=== PATIENT | female | born 1965 | race Caucasian/White ===

== ENCOUNTER 2020-09-02 16:55 | Outpatient (REF) | payer OTHER, SELFPAY | END 2020-09-02 16:56 | disposition home or self-care (01) | LOC: HO.LAB 16:55 | PROVIDERS: Visit Provider Internal Medicine | DX: Z20.828 Contact with and (suspected) exposure to other viral communicable diseases (principal) | CPT/HCPCS: 87635 ==

== ENCOUNTER 2022-05-14 18:04 | Emergency (ER) | payer OTHER, SELFPAY ==
--- NOTE | ~2022-05-14 | XR_ITS ---
EXAMINATION: XR FINGER, RIGHT CLINICAL INFORMATION: Question foreign body second digit COMPARISON: None TECHNIQUE: Three views of the right second. FINDINGS: A sliver-like foreign body is seen in the soft tissues adjacent to the proximal aspect of the distal phalanx of the second digit toward the ulnar aspect. This measures proximally 3 mm. There is no evidence for a bony fracture. XR/XR finger RT min 2V IMPRESSION: Positive for small foreign body as described
[2022-05-14 18:20] VITALS: BP 128/61; PULSE 68; RESP 19; TEMP 36.6; O2SAT 98; BMI 25.0
--- NOTE | 2022-05-14 18:36 | ED.GENADULT ---
HPI - General Adult General Chief complaint: Wound/Laceration Stated complaint: glass in finger Time Seen by Provider: 05/14/22 18:19 Source: patient Mode of arrival: ambulatory Limitations: no limitations History of Present Illness HPI narrative: 56-year-old female presents with glass that has been retained in her finger. Stated that she cut her finger on a piece of glass on mother's Day, the wound healed however over the past few days she noted that there is increased pain and swelling and feels that there could possibly be a piece of glass retained. She does not report any fevers or chills, and does have the ability to flex and extend the finger without difficulty. Onset (ago): week(s) Location: left and upper extremity Radiation: non-radiation Severity: moderate Severity scale (1-10): 5 Quality: burning and aching Pain Consistency: constant Relieving factors: none Exacerbating factors: movement Associated symptoms: denies other symptoms Treatments prior to arrival: none Related Data Previous Rx's Medication Instructions Recorded amoxicillin 875 mg-potassium 1 tab PO Q12H 10 days #20 tabs 05/14/22 clavulanate 125 mg tablet Allergies Allergy/AdvReac Type Severity Reaction Status Date / Time Sulfa (Sulfonamide Allergy Severe Unknown Verified 05/14/22 19:40 Antibiotics) Review of Systems Review of Systems: Constitutional: No Fever, No Chills ENT/Mouth: No Ear Pain, No Hoarseness, No sore throat Eyes: No Eye Pain, No Swelling, No Redness, No Foreign Body Cardiovascular: No Chest Pain, No SOB Respiratory: No Cough, No Dyspnea Gastrointestinal: No Nausea, No Vomiting, No Diarrhea, No abdominal Pain Genitourinary: No Dysuria, No Hematuria Musculoskeletal: positive right index finger pain, No Myalgias, No Joint Swelling Skin: No Skin lacerations, No rash Neuro: No Weakness, No Numbness, No Paresthesias, No Loss of Consciousness, No Dizziness, No Headache Psych: No Anxiety/Panic, No Depression Heme/Lymph: no easy bruising, no Lymphadenopathy Endocrine: No Polyuria, No Polydipsia Yes all other systems are reviewed and are negative [facility], [facility] Past Medical History Attestation statement: The following information was validated with the patient. Source: old records reviewed Social History Social History Advance Directives: No Physical Exam ED Vital Signs: Vital Signs - 24 hr 05/14/22 18:20 Temperature 98 F Pulse Rate 68 Respiratory Rate 19 Blood Pressure 128/61 Pulse Oximetry 98 Oxygen Delivery Method Room Air BMI result Body Mass Index 25.0 Appearance: Alert. Oriented X3. No acute distress. Eyes: Pupils equal, round and reactive to light. ENT: Pharynx normal. Neck: Normal inspection. Neck supple. CVS: Normal heart rate and rhythm. Pulses normal. Respiratory: No respiratory distress. Breath sounds normal. Abdomen: Soft and nontender. Skin: Skin warm and dry. Normal skin color. Normal skin turgor. Extremities: enlarged right distal phalynx, full range of motion, no erythema or indication of infection. Neuro: No motor deficit. No sensory deficit. Cranial nerves 2-12 intact. Course Course Course Narrative: 56-year-old female presents with suspected foreign body to the right index distal phalanx. She did cut herself on a piece of glass on mother's Day, cleaned out the wound, and wound healed over. She noted increased swelling and pain and now has a bit of redness to the ulnar side of the distal phalanx on the index finger. X-rays indicate a sliver of a foreign body however I do not feel comfortable attempting to remove this foreign body. I will refer to hand surgery, and prescribed antibiotics Augmentin 875 mg twice a day for the next 10 days. She does have a prior hand surgeon, Dr. Rox Giron, I will also give her the number to Dr. Pate. She does understand that she must follow-up with the surgeon. Patient verbalized understanding of and agrees to plan of care to discharge home. Verbalized understanding of signs and symptoms indicating need for emergent intervention Medical Decision Making Differential Diagnosis Differential Diagnosis: Retained foreign body, cellulitis, abscess Imaging Data Finger x-ray: Attestation: I personally reviewed and interpreted this imaging study as follows: Radiologist's impression: EXAMINATION: XR FINGER, RIGHT CLINICAL INFORMATION: Question foreign body second digit? COMPARISON: None? TECHNIQUE: Three views of the right second. FINDINGS: A sliver-like foreign body is seen in the soft tissues adjacent to the proximal aspect of the distal phalanx of the second digit toward the ulnar aspect. This measures proximally 3 mm. There is no evidence for a bony fracture. ? XR/XR finger RT min 2V IMPRESSION: Positive for small foreign body as described Discharge Plan Discharge Clinical Impression: Retained foreign body, Finger pain, right Patient Disposition: Home, Self-Care Instructions: Swollen Joint (ED) Additional Instructions: You were evaluated for pain and swelling to the right distal phalanx on the index finger. X-rays indicate a retained foreign body. You must follow-up with your hand surgeon for evaluation. You may follow-up with Dr. Giron, your prior surgeon, or follow-up with Dr. Pate. I provided both numbers for you Your Tdap vaccine is up-to-date. You verbalize receiving that vaccine in 2020. Please take Augmentin 875 mg twice a day for the next 10 days Thank you for choosing this emergency department for evaluation. Please follow-up with primary care physician as needed. Return to the emergency department for any new, concerning, or worsening symptoms. Prescriptions: New amoxicillin-pot clavulanate 875-125 mg tablet 1 tab PO Q12H 10 Days Qty: 20 0RF Referrals: Kadie Pate MD [Physician] - (Retained foreign body right index finger) Rox Giron [Physician] - (Retained foreign body, index finger) Interventions: ED Discharge Assessment Last Done: 05/14/22 20:04 Discharge Date/Time: 05/14/22 20:07
[2022-05-14] MEDS: Amoxicillin/Potassium Clav 875 MG TABLET PO (19:55)
== END 2022-05-14 20:07 | disposition home or self-care (01) ==
PROVIDERS: Emergency Provider Emergency Medicine; PCP Internal Medicine
DX: S61.210A Laceration without foreign body of right index finger without damage to nail, initial encounter (principal); W25.XXXA Contact with sharp glass, initial encounter; W45.8XXA Other foreign body or object entering through skin, initial encounter; Y93.9 Activity, unspecified; Y92.009 Unspecified place in unspecified non-institutional (private) residence as the place of occurrence of the external cause; Y99.9 Unspecified external cause status; Z79.899 Other long term (current) drug therapy
CPT/HCPCS: 73140; 99282; 99283

== ENCOUNTER → 2022-05-19 10:06 | Outpatient (BNVA) | payer OTHER, SELFPAY | PROVIDERS: PCP Internal Medicine; Visit Provider Orthopaedic Surgery | DX: S61.220A Laceration with foreign body of right index finger without damage to nail, initial encounter (principal) | CPT/HCPCS: 99202; J0171 ==

== ENCOUNTER 2022-05-20 10:42 | Day surgery (SDC) | payer OTHER, SELFPAY ==
[2022-05-20 10:58] VITALS: BP 110/59; PULSE 63; RESP 18; TEMP 36.7; O2SAT 97; BMI 24.5
[2022-05-20 11:07] VITALS: BP 110/59; PULSE 63; RESP 18; TEMP 36.3; O2SAT 97
--- NOTE | 2022-05-20 12:44 | MHC.SHP ---
Pre-Procedural Eval Section A Date of Service: 05/20/22 The patient is an INPATIENT: No Changes since office visit: No Cold of Flu in the past 2 weeks, No New Medical Problems, No Changes in Medication and No Patient answered all questions The History & Physical has been completed within 30 days and I have reviewed it.: Yes Section B Chief Complaint: FB Right index foreign body Allergies: Allergies Allergy/AdvReac Type Severity Reaction Status Date / Time Sulfa (Sulfonamide Allergy Severe Anaphylaxis Verified 05/20/22 11:03 Antibiotics) Plan I have reviewed the history and physical and performed a pertinent physical examination on my patient. No changes have occurred unless specified.
--- NOTE | 2022-05-20 12:45 | P.OP_ITS ---
Operative Note Operative Note Date of Service: 05/20/22 Narrative: Operative Note Preop diagnosis: 1. right index finger foreign body Postop diagnosis: same Procedure: 1. right index finger foreign body Surgeon: Kadie Pate MD Anesthesia: digital block using 1% lidocaine with epinephrine Findings: a very small sliver of clear glass that measured perhaps 4 mm meters in length by 1-2 mm x 2 mm was removed from her index finger EBL: Less than 5 mL Tourniquet time: None Specimens: none Complications: None Disposition: Brought to recovery room in stable condition Plan: Follow-up for 7-10 days for wound check and suture removal and to check patho logy Indications: The patient is 56 years old, with small piece of glass from a broken vase in her right index finger . The risks and benefits of operative treatment including but not limited to risk of damage to blood vessels, nerves, tendons, infection, persistent pain, persistent symptoms, recurrence or possible need for additional surgery were discussed with the patient and the patient wishes to proceed with surgery. Procedure: Once consent was obtained a digital block was performed in the preop area using a combination of 1% lidocaine with epinephrine. The patient was then brought back to the operating suite and placed on the operative table in supine position. A tourniquet was applied to the proximal aspect of the right upper extremity and the limb was prepped and draped in a standard surgical fashion. Once assured that we had a good block, hamate 01.5 cm longitudinal incision centered over the suspected foreign body in the ulnar aspect of the right index finger at the distal phalanx level. Incision was made through the skin to the subcutaneous tissues using a 15. Blade. I then carefully dissected down into the soft tissues using tenotomy scissors. I then carefully evaluated the area and mobilized the tissues until I found the very small clear shard of glass. We removed the glass from her finger. The wound was irrigated with normal saline. Hemostasis was obtained with a brief period of local pressure. The skin edges were reapproximated with some 5.0 nylon suture material and a sterile dressing was applied. The patient appears to have tolerated the procedure well and with no complications. All digits were well vascularized at the conclusion of the case.
[2022-05-20 12:49] VITALS: BP 109/62; PULSE 60; RESP 18; TEMP 37.3; O2SAT 98
== END 2022-05-20 12:52 | disposition home or self-care (01) ==
PROVIDERS: PCP Internal Medicine; Visit Provider Orthopaedic Surgery
PROC: (CPT 10121; principal; 2022-05-20 15:30)
DX: M60.28 Foreign body granuloma of soft tissue, not elsewhere classified, other site (principal); Z18.81 Retained glass fragments; L30.9 Dermatitis, unspecified; M79.7 Fibromyalgia; Z88.2 Allergy status to sulfonamides
CPT/HCPCS: 10121; J0171

== ENCOUNTER → 2022-09-22 14:34 | Outpatient (BNVA) | payer OTHER, SELFPAY | PROVIDERS: PCP Internal Medicine; Visit Provider Orthopaedic Surgery | DX: Z48.817 Encounter for surgical aftercare following surgery on the skin and subcutaneous tissue (principal); S61.220D Laceration with foreign body of right index finger without damage to nail, subsequent encounter; R20.0 Anesthesia of skin | CPT/HCPCS: 99212 ==

== ENCOUNTER 2022-12-11 09:32 | Outpatient (REF) | payer OTHER, SELFPAY ==
--- NOTE | ~2022-12-11 | XR_ITS ---
EXAMINATION: XR LUMBOSACRAL SPINE CLINICAL INFORMATION: Low back pain. Numbness down leg. COMPARISON: None TECHNIQUE: Three views of the lumbosacral spine. FINDINGS: There is normal lumbar segmentation with 5 nonrib-bearing lumbar vertebrae with gentle dextrocurvature. There is normal lumbar lordosis. No lumbar vertebral compression, spondylolisthesis, disc narrowing, or erosive changes. There are degenerative facet changes L4-S1. The SI joints and visualized sacrum are unremarkable. XR/XR lumbar spine 2-3V IMPRESSION: 1. Facet degeneration L4-S1. 2. No vertebral compression, spondylolisthesis, or disc narrowing.
== END 2022-12-11 09:33 | disposition home or self-care (01) ==
LOC: HO.XRAY 09:32
PROVIDERS: PCP Internal Medicine; Visit Provider Chiropractor
DX: M99.03 Segmental and somatic dysfunction of lumbar region (principal)
CPT/HCPCS: 72100

== ENCOUNTER 2023-09-01 09:46 | Emergency (ER) | payer OTHER, SELFPAY ==
--- NOTE | ~2023-09-01 | CT_ITS ---
EXAMINATION: CT HEAD WITHOUT CONTRAST CLINICAL INFORMATION: Headache. Left facial numbness. COMPARISON: None available. TECHNIQUE: Contiguous axial imaging was performed from the skull base to vertex without intravenous administration of contrast. This CT examination was performed using dose optimization techniques as appropriate, variously including the following: *Automated exposure control *Adjustment of mA and/or kV according to patient size (this includes techniques or standardized protocols for targeted exams where dose is matched to indication/reason for exam; i.e. extremities or head) *Use of iterative reconstruction technique DLP: 607 mGy-cm FINDINGS: There is no evidence of acute intracranial hemorrhage or territorial infarction. No mass effect or midline shift is seen. [place] to white matter differentiation is well preserved. No extra-axial fluid collections are identified. No hydrocephalus. The calvarium is intact. The mastoid air cells and visualized portions of the paranasal sinuses are well aerated. CT/CT head/brain wo IV con IMPRESSION: No acute intracranial pathology.
--- NOTE | ~2023-09-01 | CT_ITS ---
EXAMINATION: CT ANGIOGRAM HEAD CT ANGIOGRAM NECK CLINICAL INFORMATION: Reason for Exam L sided facial numbness COMPARISON: None. TECHNIQUE: Test bolus sequences followed by intravenous administration 70 mL of Omnipaque 350. Helical imaging was performed in the axial plane from the aortic arch to the skull vertex. Delayed postcontrast imaging of the head was also performed. The data was processed at the mechanical engineering technologist's workstation for generation of MIP sequences. Angled MIPs and volume rendered reformatted images were also generated at an offline 3D workstation. Stenoses are assessed in accordance with Sherwood et al. Quantification of Carotid Stenosis on CT Angiography. AJR 2006. 27(1):13-19. This CT examination was performed using dose optimization techniques as appropriate, variously including the following: *Automated exposure control *Adjustment of mA and/or kV according to patient size (this includes techniques or standardized protocols for targeted exams where dose is matched to indication/reason for exam; i.e. extremities or head) *Use of iterative reconstruction technique DLP: 1396 mGy-cm FINDINGS: CT HEAD: Noncontrast head CT findings discussed separately. No pathologic intra-axial enhancement or regional oligemia. CTA HEAD: Venous contamination compromises diagnostic assessment. No proximal hemodynamically significant stenosis or occlusion in the anterior or posterior circulation. Trace calcific plaque along the bilateral cavernous segments without associated stenosis. Dominant left A1 segment and hypoplastic right A1 segment accounting for smaller caliber intracranial right ICA. Type I-Il left AICA loop courses within the left IAC. No aneurysms and no high flow vascular malformations. Timing of the contrast bolus allows assessment of the major dural venous sinuses, which all opacify normally CTA NECK: Classic 3 vessel branching pattern of the aortic arch. Origins of the great vessels are widely patent. The common carotid arteries are widely patent. The carotid bifurcations and bilateral internal carotid arteries are normal. The right vertebral artery is dominant. The vertebral artery ostia are widely patent. Both vertebral arteries are widely patent throughout their extracranial cervical course, noting partially nondiagnostic assessment of the left C1 vertebral artery. CT NECK: Small retention cyst in the left sphenoid and right maxillary sinuses. 9 mm hyperdense exophytic soft tissue along the left posterior wall of the nasal cavity, presumed nasal polyp/retention cyst. Symmetric prominence of the palatine tonsils for age, presumably reactive. Several hypodense thyroid nodules largest measuring 6 cm on the right below size criteria for imaging follow-up. Mosaic attenuation of the imaged lungs may reflect areas of air trapping. Mild C5-C6 disc height loss with disc osteophyte complex and uncovertebral joint hypertrophy contributing to severe left and [id number] right neural foraminal stenosis and apparent mild spinal canal stenosis. Additional milder cervical spondylosis. Elongated and ossified styloid processes can be correlated clinically for signs of Cant[place] syndrome. CT/CT angio head neck IMPRESSION: 1. No acute arterial occlusion or hemodynamically significant stenosis within the head or neck. Findings were communicated to Dr. Davis at 7:24 PM on 09/01/2023. 2. Type I-Il left AICA loop courses within the left IAC. 3. 9 mm hyperdense exophytic soft tissue along the left posterior wall of the nasal cavity, presumed nasal polyp/retention cyst. 4. Elongated and ossified styloid processes can be correlated clinically for signs of [place] syndrome.
[2023-09-01 09:53] VITALS: BP 146/80; PULSE 61; RESP 19; TEMP 36.6; O2SAT 99; BMI 24.9
--- NOTE | 2023-09-01 16:10 | ED_ITS ---
HPI - General Adult General Chief complaint: General Medical Stated complaint: possible stroke Time Seen by Provider: 09/01/23 16:01 Source: patient Mode of arrival: ambulatory Limitations: no limitations History of Present Illness HPI narrative: 58 yo female with PMH of fibromyalgia here with c/o neck pain, stress she is losing her hair recently that has been stressful, headaches and numbness along L lower mouth with some spasms. She notes no prior stroke no trauma, no neck manipulation or cracking by her chiropractor. She denies numbness, weakness anywhere else. She feels she cannot use her mouth as well as the other side. The symptoms started two days ago and made it feel like the L side of her face had hair on it. She denies dental work recently or sinus infection. MD complaint: parasthesias Onset (ago): day(s) (2) Location: face Radiation: non-radiation Severity: mild Quality: other Relieving factors: none Exacerbating factors: none Associated symptoms: headaches Treatments prior to arrival: none Related Data Home Medications Medication Instructions Recorded Confirmed No Known Home Meds 09/22/22 09/22/22 Allergies Allergy/AdvReac Type Severity Reaction Status Date / Time Sulfa (Sulfonamide Allergy Severe Anaphylaxis Verified 09/01/23 09:53 Antibiotics) Review of Systems 2 Review of Systems: Constitutional : No Fever, No Chills, No Fatigue ENT/Mouth : No sore throat, No Rhinorrhea Eyes: No Eye Pain, No Swelling, No Redness Cardiovascular : No Chest Pain, No SOB, No Dyspnea on Exertion Respiratory : No Cough, No Sputum Gastrointestinal : No Nausea, No Vomiting, No Diarrhea, No abdominal Pain Genitourinary : No Dysuria, No Urinary Frequency, No Hematuria, Musculoskeletal : No joint pain, No Myalgias, No Joint Swelling, pos neck pain Skin : No Skin Lesions, No rash Neuro : No Weakness, pos Numbness, No Dizziness, positive Headache Psych : No Anxiety/Panic, No Depression All other systems reviewed and are negative [facility] Past Medical History Attestation statement: The following information was validated with the patient. 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 Oriented X3. No acute distress. Eyes: Pupils equal, round and reactive to light. ENT: Pharynx normal. Neck: Normal inspection. Neck supple. CVS: Normal heart rate and rhythm. Pulses normal. Respiratory: No respiratory distress. Breath sounds normal. Abdomen: Soft and non-tender. Skin: Skin warm and dry. Normal skin color. Normal skin turgor. Extremities: No lower extremity edema. No calf ttp Neuro: Oriented X 3. No motor deficit. No sensory deficit. no drift, CN2-12 intact NIH Stroke Scale Internal: Initial- Upon Arrival Level of Consciousness: Alert Level of Consciousness Questions: Answers both questions correctly Level of Consciousness Commands: Performs both tasks correctly Best Gaze: Normal Visual: No visual loss Facial Palsy: Normal Motor Arm (Right): No drift Motor Arm (Left): No drift Motor Leg (Right): No drift Motor Leg (Left): No drift Limb Ataxia: Absent Sensory: Normal Best Language: No aphasia Dysarthia: Normal Extinction and Inattention: No abnormality Score: 0 Medications Administered Discontinued Medications Generic Name Dose Route Start Last Admin Trade Name Freq PRN Reason Stop Dose Admin Iohexol 100 ml 09/01/23 18:47 09/01/23 18:48 Iohexol 350 Mg/Ml 100 Ml Infus..Btl IV 09/01/23 18:48 70 ml ONCE ONE Administration Medical Decision Making Medical Decision Making MDM Narrative: 58 yo female with PMH of fibromyalgia here with c/o parasthesias of L face and feeling she is having word finding difficulties she is intact on my exam - this started two days ago she does admit she has stress. At this time I am going to obtain labs for lyte abnormality, EKG for afib, CTA for any dissection given headaches and neck pain. She is NIH 0 on exam and no deficits noted. She has no rash to suggest zoster. If work up negative will refer to PCP and start on baby ASA - symptoms are constant this is not a TIA but on exam she has no deficits. Differential Diagnosis Differential Diagnoses: The differential diagnosis associated with the presentation includes parasthesias, stress, dissection, atypical stroke symptoms, no meningeal signs of fevers to suggest stroke Admission/Observation Consideration of admission/observation: Escalation of care including admission/observation considered given normal imaging of CTA at 48 hours can finish work up as outpatinet not in afib normal labs Lab Data MDM Lab Attestation statement: I reviewed the patient's lab results. 09/01/23 16:47 09/01/23 16:47 Labs: Lab Results 09/01/23 Range/Units 16:47 WBC 4.8 (4.8-10.8) X10*3/uL RBC 5.03 (4.20-5.50) X10*6/uL Hgb 14.6 (12.0-16.0) g/dl Hct 44.2 (37.0-47.0) % MCV 87.9 (80.0-98.0) fL MCH 29.0 (27.0-33.0) pg MCHC 33.0 (31.0-35.0) g/dl RDW 13.0 (11.0-16.0) % Plt Count 269 (160-400) X10*3/uL MPV 9.4 (9.4-12.3) fL Immature Gran % (Auto) 0.2 (0.0-0.4) % Neut % (Auto) 50.1 (45-73) % Lymph % (Auto) 39.8 (20-40) % [place] % (Auto) 8.2 (2-11) % Eos % (Auto) 1.3 (0-4) % Baso % (Auto) 0.4 (0-2) % Lymph # (Auto) 1.9 (1.2-4.9) X10*3/uL [place] # (Auto) 0.4 (0.1-1.2) X10*3/uL Eos # (Auto) 0.1 (0.0-0.4) X10*3/uL Baso # (Auto) 0.0 (0.0-0.2) X10*3/uL Abs Immat Gran (auto) 0.01 (0.00-0.03) X10*3/uL Absolute Neuts (auto) 2.4 (2.0-8.3) x10*3/uL Absolute Nucleated RBC 0.000 (0.0-0.012) X10*3/uL Nucleated RBC % (auto) 0.0 (0.0-0.2) /100WBC Sodium 142 (135-145) mmol/L Potassium 3.4 (3.3-5.1) mmol/L Chloride 104 (96-108) mmol/L Carbon Dioxide 25 (22-29) mmol/L Anion Gap 16 (12-20) BUN 10 (9-16) mg/dL Creatinine 0.71 (0.5-1.4) mg/dL Estim Creat Clear Calc 81.8 Estimated GFR > 60 Random Glucose 90 (60-115) mg/dL Calcium 10.2 (8.4-10.2) mg/dL Magnesium 2.1 (1.6-2.6) mg/dL Total Bilirubin 0.7 (0.0-1.0) mg/dL Direct Bilirubin 0.2 (0.0-0.5) mg/dL AST 16 (5-31) U/L ALT 16 (0-31) U/L Alkaline Phosphatase 85 (39-117) U/L Total Protein 7.5 (6.5-8.0) g/dL Albumin 4.6 (3.5-5.0) g/dL TSH 3rd Generation 0.99 (0.32-4.0) uIU/mL Independent Interpretation I performed an independent interpretation of an: EKG and CT Scan (no ICH) Interpretation: Rate: 51 Rhythm: sinus bradycardia [place]: left Normal P waves. Normal MAGEN. Normal QRS complex. ST T wave : normal no AIMEE qTC: normal no acute ischemia prior studies: no acute ischemia The study has been interpreted contemporaneously by me. . Radiology Impression Discussion of test interpretation with radiology: I discussed test interpretation with the radiologist and I have reviewed the radiologist's reading. Radiologist Impression: discussion with Radiologist - normal CTA of head and neck Independent Historian Clinical information obtained from an independent historian. History obtained from or confirmed by: Friend External Record Review External record reviewed: Inpatient record Prescription Management I considered prescription management with: Other Discharge Plan Discharge Clinical Impression: Facial paresthesia Patient Disposition: Home, Self-Care Instructions: Paresthesia (ED) Additional Instructions: your labs and CTA of the head and neck did not show blockage or acute stroke at this time no obvious cause for your findings. I would start a baby 81mg aspirin coated until you see your doctor if this continues and get outpatient MRI to be complete. return for worsening symptoms, loss of vision, weakness, or any other concerns. EKG was normal not in afib. CTA findings: 1. No acute arterial occlusion or hemodynamically significant stenosis within the head or neck. Findings were communicated to Dr. Davis at 7:24 PM on 09/01/2023. 2. 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 9 mm hyperdense exophytic soft tissue along the left posterior wall of the nasal cavity, presumed nasal polyp/retention cyst. 4. Elongated and ossified styloid processes can be correlated clinically for signs of [place] syndrome - incidental findings - ear pain neck pain head pain can follow up with your doctor Prescriptions: No Action No Known Home Meds Referrals: Dahiana Townsend MD [Primary Care Provider] - (call for appointment next week )
--- NOTE | 2023-09-01 16:17 | ECG_ITS ---
Test Reason : GENERAL MEDICAL Blood Pressure : / mmHG Vent. Rate : 051 BPM Atrial Rate : 051 BPM P-R Int : 146 ms QRS Dur : 094 ms QT Int : 448 ms P-R-T Axes : 033 -36 047 degrees QTc Int : 412 ms Sinus bradycardia Left anterior fascicular block RSR' or QR pattern in V1 suggests right ventricular conduction delay Abnormal ECG No previous ECGs available Referred By: Loraine Davis Electronically Signed By:GABRIELLA STOVER MD
[2023-09-01 16:36] VITALS: BP 142/72; PULSE 61; RESP 18; TEMP 36.7; O2SAT 100
[2023-09-01 16:52] LABS: MANUAL DIFF FLAG NO
[2023-09-01 16:54] LABS: Basophils Percent Auto 0.4 % (0-2); Eosinophils Absolute Auto 0.1 X10*3/uL (0.0-0.4); Eosinophils Percent Auto 1.3 % (0-4); Hematocrit 44.2 % (37.0-47.0); Hemoglobin 14.6 g/dl (12.0-16.0); Imm Gran Abs Auto 0.01 X10*3/uL (0.00-0.03); Imm Gran Pct Auto 0.2 % (0.0-0.4); Lymphocytes Absolute Auto 1.9 X10*3/uL (1.2-4.9); Lymphocytes Percent Auto 39.8 % (20-40); Mean Corpuscular Volume 87.9 fL (80.0-98.0); Mean Platelet Volume 9.4 fL (9.4-12.3); Monocytes Absolute Auto 0.4 X10*3/uL (0.1-1.2); Monocytes Percent Auto 8.2 % (2-11); Neutrophils Absolute Auto 2.4 x10*3/uL (2.0-8.3); Neutrophils Percent Auto 50.1 % (45-73); Platelet Count 269 X10*3/uL (160-400); Red Blood Count 5.03 X10*6/uL (4.20-5.50); White Blood Count 4.8 X10*3/uL (4.8-10.8)
[2023-09-01 17:20] LABS: Alanine Aminotransferase 16 U/L (0-31); Albumin Level 4.6 g/dL (3.5-5.0); Alkaline Phosphatase 85 U/L (39-117); Anion Gap 16 (12-20); Aspartate Amino Transferase 16 U/L (5-31); Bilirubin Direct 0.2 mg/dL (0.0-0.5); Bilirubin Total 0.7 mg/dL (0.0-1.0); Blood Urea Nitrogen 10 mg/dL (9-16); Calcium 10.2 mg/dL (8.4-10.2); Carbon Dioxide 25 mmol/L (22-29); Chloride 104 mmol/L (96-108); Creatinine Clr Calc Pharmacy 81.8; Estimated Glomerular Filt Rate > 60; Glucose Random 90 mg/dL (60-115); Magnesium 2.1 mg/dL (1.6-2.6); Potassium 3.4 mmol/L (3.3-5.1); Sodium 142 mmol/L (135-145); Total Protein 7.5 g/dL (6.5-8.0)
--- NOTE | 2023-09-01 17:26 | PC.NURSE ---
pt is alert and oriented, skin pwd, respirations even and unlabored, pt reports that for a couple of these weird sensations on the left sided of her face feels like hair is rubbing on the left sided of the face and sometimes feels like tingling and it spread some to the right sided, the tip of the nose, pt is reporting a headache feels like pressure/pain even laying it on a pillow sometimes makes it hurts, no facial droop, no visible hand drift, grasp strong and equal, moving all extremities, denies dizziness and no visual disturbances, ns on the monitor and vs stable
[2023-09-01 17:34] LABS: TSH reflex Free T4 (Prenatal) 0.99 uIU/mL (0.32-4.0)
[2023-09-01] MEDS: iohexoL 350 MG/ML 100 ML INFUS..BTL IV (18:48)
[2023-09-01 19:47] VITALS: BP 122/63; PULSE 54; RESP 19; TEMP 36.6; O2SAT 97
== END 2023-09-01 19:52 | disposition home or self-care (01) ==
PROVIDERS: Emergency Provider Emergency Medicine; PCP Internal Medicine
DX: R20.2 Paresthesia of skin (principal); M54.2 Cervicalgia
CPT/HCPCS: 36415; 70450; 70496; 70498; 80048; 80076; 83735; 85025; 93005; 99284; Q9967

== ENCOUNTER 2023-11-28 08:03 | Outpatient (AMB) | payer OTHER, SELFPAY ==
--- NOTE | 2023-11-28 08:06 | MHC.OFFVIS ---
Intake Vital Signs 11/28/23 08:12 Height 5 ft 6 in Weight 158 lb 4 oz BMI 25.5 BP 118/72 Blood Pressure Location Rt brachial Position Sitting Pulse 73 Pulse Source Pulse Oximeter Pulse Oximetry (%) 97 Oxygen Delivery Method Room Air Intake Visit Reasons: ENP-Trigeminal Neuralgia-Confirmed Intake Note: Pt presents to the office today for a new patient for Trigeminal Neuralgia. Allergies Sulfa (Sulfonamide Antibiotics) Allergy (Severe, Verified 11/28/23 08:06) Anaphylaxis Medication List - Last Reconciled 11/28/23 by Lauren Ravi MD ascorbic acid (vitamin C) 500 mg PO DAILY gabapentin mg PO omega [id number]-fish oil 300-1,000 mg (Fish Oil) 1 cap PO DAILY HPI HPI Comments History of Present Illness Details 58y/o right handed female comes for further evaluation and management of possible trigeminal neuralgia on the left. she says an episodic dull pain in heft lower face started about 15 years ago. she describes it as a dull ache, numbness, tingling, electric shock like pain radiating to the tip of the nose and chin on the left , sometimes has muscle spasm and can last hours. She had 1 episode every other month but since Aug 2023 the episodes have increased to almost everyday.sometimes when the pain is intense her voice changes and has swallowing issues. she was seen by ENT. In Aug 2023 she went to [facility] for left face numbness. 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 She also has neck pain - C spine severe left and moderate right neural foraminal stenosis and mild spinal canal stenosis at C5-6 level. she sees [facility] for her neck pain. 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, 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 Physical Exam Vital Signs: Last Vital Signs Pulse 73 11/28/23 08:12 BP 118/72 11/28/23 08:12 Pulse Ox 97 11/28/23 08:12 Oxygen Delivery Method Room Air 11/28/23 08:12 BMI result Body Mass Index 25.5 Const General: cooperative, healthy appearing, comfortable and no acute distress Nutritional Appearance: average body habitus Orientation/consciousness: patient oriented x3 Eyes Pupils: Equal, round and reactive pupils present Neck Neck: Yes no meningeal signs Neuro Other: left lower face - dysesthesias General: patient oriented x3, gait normal, tone normal, moves all extremities, no meningeal signs and no focal motor deficits Cranial nerves: Yes Equal, round and reactive pupils present, Yes Bilaterally intact EOM present, Yes Nystagmus not present, Yes Normal facial strength present, Yes Midline tongue present, Yes Symmetric palate elevation present and Yes Ability to bilaterally elevate shoulders present Cognition (Neuro): normal cognition Gait exam (Neuro): Normal gait present Motor exam (neuro): 5/5 motor strength present throughout and no tremor noted Deep tendon reflexes (DTR's): Right triceps reflex intensity grade: 2+, Left triceps reflex intensity grade: 2+, Rt Biceps (C5, C6): 2+, Left biceps reflex intensity grade: 2+, Right brachioradialis reflex intensity grade: 2+, Left brachioradialis reflex intensity grade: 2+, Right patellar reflex intensity grade: 1+ and Left patellar reflex intensity grade: 1+ Coordination: [id number] test normal Psych Appearance: grossly normal Assessment & Plan Assessment & Plan (1) Trigeminal neuralgia of left side of face: Comment: related to long styloid ? 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 Panel 4 Weeks G50.0 - Trigeminal neuralgia Medications: New carbamazepine ER (Tegretol XR) 200 mg PO BID 60 tabs 6RF Coding Level of Care Code New Pt Level 4 (04175) Diagnoses Trigeminal neuralgia of left side of face G50.0
[2023-11-28 08:12] VITALS: BP 118/72; PULSE 73; O2SAT 97; BMI 25.5
== END 2023-11-28 09:01 | disposition home or self-care (01) ==
PROVIDERS: PCP Internal Medicine; Visit Provider Psychiatry & Neurology Neurology
DX: G50.0 Trigeminal neuralgia (principal)
CPT/HCPCS: 99204

== ENCOUNTER → 2023-11-28 08:03 | Outpatient (BNVA) | payer OTHER, SELFPAY | PROVIDERS: PCP Internal Medicine; Visit Provider Psychiatry & Neurology Neurology | DX: G50.0 Trigeminal neuralgia (principal) | CPT/HCPCS: 99202 ==

== ENCOUNTER 2023-11-30 19:45 | Outpatient (REF) | payer OTHER, SELFPAY ==
--- NOTE | ~2023-11-30 | MR_ITS ---
EXAMINATION: MR CERVICAL SPINE WITHOUT CONTRAST CLINICAL INFORMATION: Evaluate for disc pathology and spinal stenosis. COMPARISON: None available. TECHNIQUE: Multiplanar, multisequential imaging of the cervical spine was performed without contrast. FINDINGS: VERTEBRAL BODIES AND PARASPINAL SOFT TISSUES: The marrow signal is within normal limits. There are no compression fractures. Mild posterior subluxations evident at the C4-C5 and C5-C6 levels. There is severe disc space narrowing at C5-C6 as well. Mild rightward curvature of the cervical spine evident. The paraspinal soft tissues are normal. The vertebral artery flow voids are maintained. The imaged lung apices are grossly clear. CERVICOMEDULLARY JUNCTION AND VISUALIZED POSTERIOR FOSSA: The craniovertebral junction appears normal. The imaged portions of the brain are unremarkable. The mastoid air cells are well aerated. No cord signal abnormality or syrinx is seen. SPINAL LEVELS: C2-C3: No disc pathology, central canal stenosis, or foraminal narrowing. C3-C4: Small central disc protrusion. No central canal stenosis or foraminal narrowing. C4-C5: Mild loss of disc height and retrosubluxation with a shallow central disc protrusion. No central canal stenosis. Mild right foraminal narrowing. C5-C6: Severe loss of disc height and shallow disc-osteophyte complex with mild central canal stenosis. Bilateral facet arthropathy and severe left foraminal narrowing. Moderate right foraminal narrowing as well. C6-C7: Very mild disc bulge and posterior ligamentous thickening without central canal stenosis. Mild left foraminal narrowing. C7-T1: No disc abnormality. No central canal stenosis or foraminal narrowing. Mild facet arthropathy. MR/MR cervical spine wo con IMPRESSION: 1. Severe degenerative disc disease at the C5-C6 level with mild central canal stenosis and abfexstr-iw-nvihvd foraminal narrowing, worse on the left side. 2. Small disc protrusions at the C3-C4 and C4-C5 levels. Mild rightward curvature of the cervical spine.
== END 2023-11-30 19:46 | disposition home or self-care (01) ==
LOC: HO.MRI 19:45
PROVIDERS: PCP Internal Medicine; Visit Provider Physician Assistant
DX: M42.12 Adult osteochondrosis of spine, cervical region (principal)
CPT/HCPCS: 72141

== ENCOUNTER 2023-12-26 08:42 | Outpatient (REF) | payer OTHER, SELFPAY ==
[2023-12-26 09:03] LABS: MANUAL DIFF FLAG NO
[2023-12-26 09:19] LABS: Basophils Percent Auto 0.6 % (0-2); Eosinophils Absolute Auto 0.1 X10*3/uL (0.0-0.4); Eosinophils Percent Auto 1.9 % (0-4); Hematocrit 41.6 % (37.0-47.0); Hemoglobin 13.5 g/dl (12.0-16.0); Imm Gran Abs Auto 0.01 X10*3/uL (0.00-0.03); Imm Gran Pct Auto 0.2 % (0.0-0.4); Lymphocytes Absolute Auto 1.4 X10*3/uL (1.2-4.9); Lymphocytes Percent Auto 29.1 % (20-40); Mean Corpuscular HGB Conc 32.5 g/dl (31.0-35.0); Mean Corpuscular Hemoglobin 28.5 pg (27.0-33.0); Mean Corpuscular Volume 87.9 fL (80.0-98.0); Mean Platelet Volume 9.4 fL (9.4-12.3); Monocytes Absolute Auto 0.4 X10*3/uL (0.1-1.2); Monocytes Percent Auto 8.3 % (2-11); Neutrophils Absolute Auto 2.9 x10*3/uL (2.0-8.3); Neutrophils Percent Auto 59.9 % (45-73); Platelet Count 276 X10*3/uL (160-400); Red Blood Count 4.73 X10*6/uL (4.20-5.50); Red Cell Distribution Width 12.6 % (11.0-16.0); White Blood Count 4.8 X10*3/uL (4.8-10.8)
[2023-12-26 09:42] LABS: Alanine Aminotransferase 14 U/L (0-31); Alkaline Phosphatase 94 U/L (39-117); Anion Gap 13 (12-20); Aspartate Amino Transferase 14 U/L (5-31); Bilirubin Total 0.2 mg/dL (0.0-1.0); Blood Urea Nitrogen 14 mg/dL (9-16); Calcium 9.1 mg/dL (8.4-10.2); Carbon Dioxide 27 mmol/L (22-29); Chloride 107 mmol/L (96-108); Estimated Glomerular Filt Rate > 60; Glucose Random 100 mg/dL (60-115); Potassium 4.1 mmol/L (3.3-5.1); Sodium 143 mmol/L (135-145); Total Protein 6.7 g/dL (6.5-8.0)
== END 2023-12-26 08:43 | disposition home or self-care (01) ==
LOC: HO.LAB 08:42
PROVIDERS: PCP Internal Medicine; Visit Provider Psychiatry & Neurology Neurology
DX: G50.0 Trigeminal neuralgia (principal)
CPT/HCPCS: 36415; 80053; 85025

== ENCOUNTER 2024-03-27 16:38 | Outpatient (REF) | payer OTHER, SELFPAY ==
--- NOTE | ~2024-03-27 | MR_ITS ---
EXAMINATION: MR BRAIN WITHOUT AND WITH CONTRAST CLINICAL INFORMATION: Left facial numbness COMPARISON: CT head without contrast 09/01/2023 TECHNIQUE: Multiplanar multisequence MR imaging of the brain was obtained without and following the administration of 7 mL Gadavist intravenous contrast. FINDINGS: There is no acute infarct on diffusion-weighted imaging. There is no intracranial hemorrhage on iron-sensitive imaging. No extra-axial collection or mass effect/herniation. There are several scattered foci of nonspecific supratentorial white matter T2/FLAIR signal abnormality, most likely reflecting sequela of chronic microvascular ischemia.. No hydrocephalus. The ventricles are normal in morphology and size. No abnormal parenchymal or extra-axial enhancement. The major flow voids at the skull base are preserved. The midline structures are normal. The cerebellar tonsils are normally positioned. The craniocervical junction is normal. Marrow signal is within normal limits. The visualized soft tissues are without significant abnormality. Small retention cysts in the lateral left sphenoid sinus. Small posterior left nasal cavity polyp. MR/MR head/brain wo/w con IMPRESSION: 1. No acute intracranial abnormality 2. Few scattered foci of T2/FLAIR hyperintense signal in the supratentorial white matter which are nonspecific but most likely reflect sequela of chronic microvascular ischemia
[2024-03-27] MEDS: gadobutroL 7.5 ML VIAL IVPUSH (17:49)
== END 2024-03-27 16:39 | disposition home or self-care (01) ==
LOC: HO.MRI 16:38
PROVIDERS: PCP Internal Medicine; Visit Provider Neurological Surgery
DX: R51.9 Headache, unspecified (principal)
CPT/HCPCS: 70553; A9585

== ENCOUNTER 2024-04-03 07:34 | Outpatient (AMB) | payer OTHER, SELFPAY ==
--- NOTE | 2024-04-03 07:35 | MHC.OFFVIS ---
Vital Signs 04/03/24 07:36 Height 5 ft 6 in Weight 158 lb BMI 25.5 BP 122/76 Blood Pressure Location Rt brachial Position Sitting Respiration 16 Pulse 67 Pulse Source Pulse Oximeter Pulse Oximetry (%) 100 Oxygen Delivery Method Room Air Intake Visit Reasons: 2M follow up-CONF Intake Note: Pt presents for a 4 month follow up for trigeminal neuralgia of the face. [employer] Required: No Allergies Sulfa (Sulfonamide Antibiotics) Allergy (Severe, Verified 04/03/24 07:36) Anaphylaxis Medication List - Last Reconciled 04/03/24 by Lauren Ravi MD ascorbic acid (vitamin C) 500 mg PO DAILY carbamazepine ER (Tegretol XR) 200 mg PO BID gabapentin mg PO omega 6-dve-lxn-fish oil 300-1,000 mg (Fish Oil) 1 cap PO DAILY HPI Comments Details: 58y/o right handed female comes for follow up of possible trigeminal neuralgia on the left. she is better with carbamazepine XR 200mg bid Her CBC and CMP are normal. MRI brain - awaiting results she sees [facility] for C spondylosis and ENT for Eagles syndrome. she reports sensitivty in the parietal region and thinks triggered by touch and light . she says an episodic dull pain in left lower face started about 15 years ago. she describes it as a dull ache, numbness, tingling, electric shock like pain radiating to the tip of the nose and chin on the left , sometimes has muscle spasm and can last hours. She had 1 episode every other month but since Aug 2023 the episodes have increased to almost everyday.sometimes when the pain is intense her voice changes and has swallowing issues. she was seen by ENT. In Aug 2023 she went to [facility] for left face numbness. 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 She also has neck pain - C spine severe left and moderate right neural foraminal stenosis and mild spinal canal stenosis at C5-6 level. she sees [facility] for her neck pain. 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 Physical Exam Vital Signs: Last Vital Signs Pulse 67 04/03/24 07:36 Resp 16 04/03/24 07:36 BP 122/76 04/03/24 07:36 Pulse Ox 100 04/03/24 07:36 Oxygen Delivery Method Room Air 04/03/24 07:36 BMI result Body Mass Index 25.5 Const General: cooperative, healthy appearing, comfortable and no acute distress Nutritional Appearance: average body habitus Orientation/consciousness: patient oriented x3 Eyes Pupils: Equal, round and reactive pupils present Neck Neck: Yes no meningeal signs Neuro Other: left lower face - dysesthesias General: patient oriented x3, gait normal, tone normal, moves all extremities, no meningeal signs and no focal motor deficits Cranial nerves: Yes Equal, round and reactive pupils present, Yes Bilaterally intact EOM present, Yes Nystagmus not present, Yes Normal facial strength present, Yes Midline tongue present, Yes Symmetric palate elevation present and Yes Ability to bilaterally elevate shoulders present Cognition (Neuro): normal cognition Gait exam (Neuro): Normal gait present Motor exam (neuro): 5/5 motor strength present throughout and no tremor noted Coordination: [id number] test normal Psych Appearance: grossly normal Assessment & Plan Assessment & Plan (1) Trigeminal neuralgia of left side of face: Comment: related to long styloid ? Code(s): G50.0 - Trigeminal neuralgia Category: Medical (2) Cervical spondylosis: Code(s): M47.812 - Spondylosis without myelopathy or radiculopathy, cervical region Category: Medical Plan Continue Tegretol XR 200mg bid Magnesium qhs Vitamin B 2- riboflavin 400mg qam Suggested topical lidocaine for parietal sensitivity CBC and CMP PT for neck muscles F/U with ENT Orders: Orders PT Evaluation and Treatment Today M47.812 - Spondylosis without myelopathy or radiculopathy, cervical region Medications: Refilled carbamazepine ER (Tegretol XR) 200 mg PO BID 60 tabs 6RF Coding Level of Care Code Est Pt Level 4 (63645) Diagnoses Trigeminal neuralgia of left side of face G50.0 Cervical spondylosis M47.812
[2024-04-03 07:36] VITALS: BP 122/76; PULSE 67; RESP 16; O2SAT 100; BMI 25.5
== END 2024-04-03 08:11 | disposition home or self-care (01) ==
PROVIDERS: PCP Internal Medicine; Visit Provider Psychiatry & Neurology Neurology
DX: G50.0 Trigeminal neuralgia (principal); M47.812 Spondylosis without myelopathy or radiculopathy, cervical region
CPT/HCPCS: 99214

== ENCOUNTER → 2024-04-03 07:34 | Outpatient (BNVA) | payer OTHER, SELFPAY | PROVIDERS: PCP Internal Medicine; Visit Provider Psychiatry & Neurology Neurology | DX: G50.0 Trigeminal neuralgia (principal); M47.812 Spondylosis without myelopathy or radiculopathy, cervical region; Z79.899 Other long term (current) drug therapy | CPT/HCPCS: 99212 ==

== ENCOUNTER 2024-07-18 15:00 | Outpatient (RCR) | payer OTHER, SELFPAY ==
--- NOTE | 2024-04-30 18:10 | MHC.PT.EP ---
[facility] [place] [facility] [place] [facility] [place] [facility] [address] [phone] F: [phone] F: [phone] F: [phone] F: [phone] Physical Therapy Plan of Care Date of Evaluation: 04/30/24 Date of Surgery: Diagnosis: cervical spondylosis (MD Dx) Pt with Hx L trigemial neuralgia (RS) Assessment: Patient is a pleasant 58 y.o. female who is referred to PT by with Dx of cervical spondylosis. Pt with complex hx of L trigemial neuralgia, there are MRI findings, 1. Severe degenerative disc disease at the C5-C6 level with mild central canal stenosis and [id number] foraminal narrowing, worse on the left side. 2. Small disc protrusions at the C3-C4 and C4-C5 levels. Mild rightward curvature of the cervical spine. Patient impairments include pain, poor posture, referred pain to face and head, weakness in L shoulder and L scapular area, limited cervical ROM. Patient current functional limitations are constant pain, concentration, work, walking, picking up heavier objects, driving. Patient will benefit from skilled PT to address aforementioned impairments and functional limitations to meet established goals. Frequency and Duration: The patient will be seen 2x/week for 4 weeks Short Term Goals: 2 weeks Patient demonstrates consistency and independence with HEP to self manage symptoms. [facility] Goals: 4 weeks Patient presents with increased cervical rotation to L 60 degrees to look over shoulders when driving. Patient presents with increased L middle trap strength 4/5 to be able to sit for longer time at work with less referred sxs. Treatment Plan: Modalities to reduce pain, spasms and effusion. Manual therapy to restore motion and function. Therapeutic exercise to improve strength and flexibility. Neuromuscular re-education for posture and balance. Therapeutic activities to return to functional activities of daily living. Electronically signed by: Sage Zelaya, PT, DPT Please sign and return to therapist. Thank you for your referral.
--- NOTE | 2024-08-28 16:01 | MHC.PT.DC ---
[facility] [place] [facility] [place] [facility] [place] [facility] [address] [phone] F: [phone] F: [phone] F: [phone] F: [phone] Physical Therapy Discharge Report Diagnosis: cervical spondylosis (MD Nazario) Pt with Hx L trigemial neuralgia (RS) Date of Surgery: Date of Evaluation: 04/30/24 Date of Discharge: 08/28/24 Treatments to Date: 12 Cancellations to Date: No Shows to Date: Discharge Status: Improved Function Independent with HEP Patient Elected to Stop Discharge Summary: Rox did well with PT interventions. Her last PT session was on 07/17/24 and the assessment reads, Rox is able to maintain neck and shoulder neutral for exercises without pain complaints. She reports mild pain/pulling in anterior L pec area which is much improved per patient since starting PT. This may also come from referred pain from scalenes. She ceased attending PT on her own accord and is discharged from PT at this time. Electronically signed by: Sage Zelaya, PT, DPT Please sign and return to therapist. Thank you for your referral.
== END 2024-08-28 16:02 | disposition home or self-care (01) ==
LOC: HO.PT 15:00
PROVIDERS: PCP Internal Medicine; Visit Provider Psychiatry & Neurology Neurology
DX: M47.812 Spondylosis without myelopathy or radiculopathy, cervical region (principal)
CPT/HCPCS: 97110; 97140; 97163; 97530

== ENCOUNTER 2024-10-04 07:36 | Outpatient (AMB) | payer OTHER, SELFPAY ==
--- NOTE | 2024-10-04 07:38 | A.OFFVIS_ITS ---
Vital Signs 10/04/24 07:39 Height 5 ft 6 in Weight 159 lb BMI 25.7 Intake Visit Reasons: Follow up Intake Note: Patient presents for follow up. Allergies Sulfa (Sulfonamide Antibiotics) Allergy (Severe, Verified 10/04/24 07:40) Anaphylaxis HPI Comments Details: 59 year old female with h/o cervical- spondylosis and Trigeminal Neuralgia like symptoms presents for a follow up. She continues to have sensitivity and pain when brushing her hair and in the back of her head (parietal area), as the medication starts to wear off. She continues to have sensitivity to light and headaches daily as the medication wears off. She has been having a shaking like sensation of her left hand, as if she needs to shake the water off of her hands, when doing dishes, and notices this spontaneously through the day, and it lasts for seconds. She tried taking Tegretol 200mg XR 1 hour apart, 2 hours apart, 4 hours apart and this didn't work either, the 400 mg is too sedating and she can't get out of bed for work even at 9am, symptoms of (ataxia). Discussed dose adjustment to 300 mg, as 400 mg is over stimulating for her yet, and causes dizziness sedating for her. PT has helped in the past for her neck and head. Denies vision changes nausea and vomiting, vertigo and falls. She wears trifocals so vision is at baseline blurry, she sees her sales performance analyst regularly. 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 hand shakes and stops in seconds.) Physical Exam Vital Signs: BMI result Body Mass Index 25.7 Const General: cooperative, comfortable and no acute distress Orientation/consciousness: patient oriented x3 HEENT Head: Yes normal to inspection Mouth: tongue normal Eyes General: appearance normal, both eyes and all related structures Pupils: Equal, round and reactive pupils present, Pupils normal by confrontation and Pupil accommodation reflex normal Neck Neck: Yes full ROM (limited ROM to left.) and Yes supple Resp Effort & Inspection: normal respiratory effort and able to speak in complete sentences Neuro General: patient oriented x3 Cranial nerves: Yes CN's II-XII intact bilaterally, Yes Facial sensation intact/muscles of mastication intact, Yes Equal, round and reactive pupils present, Yes Normal accommodation reflex present, Yes Normal facial strength present, Yes Midline tongue present, Yes Symmetric palate elevation present, Yes Normal hearing present, Yes Ability to bilaterally rotate head present and Yes Ability to bilaterally elevate shoulders present Gait exam (Neuro): Normal gait present Motor exam (neuro): 5/5 motor strength present throughout (weakness on the left 3/5 upper ext.) Deep tendon reflexes (DTR's): Right triceps reflex intensity grade: 2+, Left triceps reflex intensity grade: 2+, Rt Biceps (C5, C6): 2+, Left biceps reflex intensity grade: 2+, Right brachioradialis reflex intensity grade: 2+, Left brachioradialis reflex intensity grade: 2+, Right patellar reflex intensity grade: 2+ and Left patellar reflex intensity grade: 1+ Coordination: iaggsv-po-fljy test normal Psych Appearance: grossly normal Affect: normal affect Attitude: cooperative Insight: Good insight present (Psych) Judgement: Good judgement present (Psych) Assessment & Plan Assessment & Plan (1) Cervical spondylosis: Code(s): M47.812 - Spondylosis without myelopathy or radiculopathy, cervical region Category: Medical (2) Trigeminal neuralgia of left side of face: Comment: related to long styloid ? Code(s): G50.0 - Trigeminal neuralgia Category: Medical Plan Will increase the level of carbamazapine, from 200 to 300mg PO ER BID. Will send labs to check CBC/CMP for levels of Tegretol. Follow up with portal message if you need dose adjusments. Follow up in 4 months. Orders: Orders Complete Blood Count no Diff 10/05/24 G50.0 - Trigeminal neuralgia Comprehensive Met. Panel 10/05/24 G50.0 - Trigeminal neuralgia Carbamazepine Tegretol 10/05/24 G50.0 - Trigeminal neuralgia Medications: New carbamazepine ER 100 mg PO BID 60 caps 6RF Discontinued amitriptyline Discontinued Reason: Doctor's Order 10 mg PO BEDTIME 30 tabs 0RF Coding Level of Care Code Est Pt Level 4 (95809) Complex EM visit Add On G2211 Diagnoses Cervical spondylosis M47.812 Trigeminal neuralgia of left side of face G50.0
[2024-10-04 07:39] VITALS: BMI 25.7
== END 2024-10-04 08:13 | disposition home or self-care (01) ==
PROVIDERS: PCP Internal Medicine; Visit Provider Psychiatry & Neurology Neurology
DX: M47.812 Spondylosis without myelopathy or radiculopathy, cervical region (principal); G50.0 Trigeminal neuralgia
CPT/HCPCS: 99214; G2211

== ENCOUNTER → 2024-10-04 07:36 | Outpatient (BNVA) | payer OTHER, SELFPAY | PROVIDERS: PCP Internal Medicine; Visit Provider Psychiatry & Neurology Neurology | DX: M47.812 Spondylosis without myelopathy or radiculopathy, cervical region (principal); G50.0 Trigeminal neuralgia | CPT/HCPCS: 99212 ==

== ENCOUNTER 2024-10-05 16:43 | Outpatient (REF) | payer OTHER, SELFPAY ==
[2024-10-05 17:23] LABS: Hematocrit 41.6 % (37.0-47.0); Hemoglobin 13.6 g/dl (12.0-16.0); Mean Corpuscular HGB Conc 32.7 g/dl (31.0-35.0); Mean Corpuscular Hemoglobin 29.3 pg (27.0-33.0); Mean Corpuscular Volume 89.7 fL (80.0-98.0); Mean Platelet Volume 9.5 fL (9.4-12.3); Platelet Count 288 X10*3/uL (160-400); Red Blood Count 4.64 X10*6/uL (4.20-5.50); Red Cell Distribution Width 13.5 % (11.0-16.0); White Blood Count 4.8 X10*3/uL (4.8-10.8)
[2024-10-05 17:31] LABS: Alanine Aminotransferase 30 U/L (0-31); Albumin Level 4.4 g/dL (3.5-5.0); Alkaline Phosphatase 119 U/L (39-117); Anion Gap 8 (12-20); Aspartate Amino Transferase 22 U/L (5-31); Bilirubin Total 0.2 mg/dL (0.0-1.0); Blood Urea Nitrogen 10 mg/dL (9-16); Calcium 9.4 mg/dL (8.4-10.2); Carbamazepine Tegretol 5.6 mcg/mL (5.0-12.0); Carbon Dioxide 30 mmol/L (22-29); Chloride 106 mmol/L (96-108); Estimated Glomerular Filt Rate > 60; Glucose Random 95 mg/dL (60-115); Potassium 3.9 mmol/L (3.3-5.1); Sodium 140 mmol/L (135-145)
== END 2024-10-05 16:44 | disposition home or self-care (01) ==
LOC: HO.LAB 16:43
PROVIDERS: PCP Internal Medicine; Visit Provider Physician Assistant Medical
DX: G50.0 Trigeminal neuralgia (principal)
CPT/HCPCS: 36415; 80053; 80156; 85027

== ENCOUNTER 2025-02-07 08:30 | Outpatient (AMB) | payer OTHER, SELFPAY ==
[2025-02-07 08:31] VITALS: BP 122/74; PULSE 75; O2SAT 98; BMI 25.5
--- NOTE | 2025-02-07 08:31 | A.OFFVIS_ITS ---
Vital Signs 02/07/25 08:31 Height 5 ft 6 in Weight 158 lb BMI 25.5 BP 122/74 Blood Pressure Location Rt brachial Position Sitting Pulse 75 Pulse Source Pulse Oximeter Pulse Oximetry (%) 98 Oxygen Delivery Method Room Air Intake Visit Reasons: Follow up Intake Note: Patient presents for follow up MRI done 08/30 and med trial carbamazepine. Allergies Sulfa (Sulfonamide Antibiotics) Allergy (Severe, Verified 02/07/25 08:33) Anaphylaxis HPI Comments Details: 59 year old female with h/o cervical- spondylosis and Trigeminal Neuralgia like symptoms presents for a follow up. she is doing good tegretol 200mg bid she reports some paresthesias in right dorsum hand. she tried 300mg bid but had tremors and did not provide additional benefit. PT has helped in the past for her neck and head. Denies vision changes nausea and vomiting, vertigo and falls. She wears trifocals so vision is at baseline blurry, she sees her hospital administrative assistant regularly. 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, 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 Review of Systems ENT Reports Normal hearing present Neuro Reports Normal hearing present Physical Exam Vital Signs: Last Vital Signs Pulse 75 02/07/25 08:31 BP 122/74 02/07/25 08:31 Pulse Ox 98 02/07/25 08:31 Oxygen Delivery Method Room Air 02/07/25 08:31 BMI result Body Mass Index 25.5 Const General: cooperative, comfortable and no acute distress Orientation/consciousness: patient oriented x3 HEENT Head: Yes normal to inspection Mouth: tongue normal Eyes General: appearance normal, both eyes and all related structures Pupils: Equal, round and reactive pupils present, Pupils normal by confrontation and Pupil accommodation reflex normal Neck Neck: Yes full ROM (limited ROM to left.) and Yes supple Resp Effort & Inspection: normal respiratory effort and able to speak in complete sentences Neuro General: patient oriented x3 Cranial nerves: Yes CN's II-XII intact bilaterally, Yes Facial sensation intact/muscles of mastication intact, Yes Equal, round and reactive pupils present, Yes Normal accommodation reflex present, Yes Normal facial strength present, Yes Midline tongue present, Yes Symmetric palate elevation present, Yes Normal hearing present, Yes Ability to bilaterally rotate head present and Yes Ability to bilaterally elevate shoulders present Gait exam (Neuro): Normal gait present Motor exam (neuro): 5/5 motor strength present throughout (weakness on the left 3/5 upper ext.) Coordination: [id number] test normal Psych Appearance: grossly normal Affect: normal affect Attitude: cooperative Insight: Good insight present (Psych) Judgement: Good judgement present (Psych) Assessment & Plan Assessment & Plan (1) Cervical spondylosis: Code(s): M47.812 - Spondylosis without myelopathy or radiculopathy, cervical region Category: Medical (2) Trigeminal neuralgia of left side of face: Comment: related to long styloid ? Code(s): G50.0 - Trigeminal neuralgia Category: Medical Plan continue carbamazapine, from 200ER bid CBC/CMP for levels of Tegretol- normal Follow up in 4 months. Coding Level of Care Code Est Pt Level 4 (66147) Complex EM visit Add On G2211 Diagnoses Cervical spondylosis M47.812 Trigeminal neuralgia of left side of face G50.0
--- OUTSIDE RECORDS SUMMARY | 2025-02-07 08:46 | XMS_ITS | Encounter Summary ---
Author Organization [facility] Address [address] [place] [address] Care Team Providers Care Automobile Mechanic Radiator Name Role Phone Dahiana Townsend MD Primary Care Provider [phone] Reason for Visit * Reason Comments Follow-up Left heel pain Encounter Details Date Type Department Care Team ([facility] st Contact Info) Description 01/15/2025 9:30 AM EST Office Visit Orthopedic Surgery - [facility] [address] [phone] Bon Trujillo, DPM [address] [address] Plantar fasciitis (Primary Dx); Equinus contracture of ankle; Ingrowing nail; Dermatophytosis of nail; Difficulty walking; Pain in toe of right foot Social History Tobacco Use Types Packs/Day Years Used Date Smoking Tobacco: Never Smokeless Tobacco: Never Alcohol Use Standard Drinks/Week Comments No 0 (1 standard drink = 0.6 oz pur e alcohol) Housing Instability Answer Date Recorde d Are you worried that in the next 2 months you may not have stable housing? No 10/07/2024 Food Access & Nutrition Answer Date Rec orded Do you have access to a vari ety of food including fruits and vegetables? Yes 10/07/2024 Access to Healthcare Answer Date Record ed Within the last 3 months, ho w many times did you visit the emergency department for your medical care? 0 10/07/2024 Health Literacy Answer Date Recorded How often do you need to hav e someone help you when you read instructions, pamphlets, or other written material from your doctor or pharmacy? Never 10/07/2024 Caregiver: How often do you need to have someone help you when you read instructions, pamphlets, or other written material from your doctor or pharmacy? Not on file 10/07/2024 Financial Risk Answer Date Recorded How hard is it for you to pa y for the very basics like food, housing, medical care, and air conditioning / heating? Not very hard 10/07/2024 Transportation Answer Date Recorded Has the lack of transportati on kept you from meetings, work, or from getting things needed for daily living? No Has the lack of transportati on kept you from medical appointments or from getting medications? No 10/07/2024 Social Isolation Answer Date Recorded How often do you feel lonely or isolated from th ose around you? Never 10/07/2024 Food Risk Answer Date Recorded Within the past 12 months we worried whether our food would run out before we got money to buy more. Never true 10/07/2024 Within the past 12 months th e food we bought just didn't last and we didn't have money to get more. Never true 10/07/2024 Dependent Care Answer Date Recorded Do you need help finding or paying for care for your loved ones. For example, child care giver or elderly care for an older adult? No 10/07/2024 Education Answer Date Recorded Do you think completing more education or training, like finishing a GED, going to college, or learning a trade, would be helpful for you? Yes 10/07/2024 Employment and Income Answer Date Recor ded During the last four weeks, have you been actively looking for work? Yes 10/07/2024 Living Situation Answer Date Recorded What is your living situation? 1 12/07/2023 Comments No Sex and Gender Information Value Date Recorded Sex Assigned at Female 10/07/2024 10:24 PM EST Legal Sex Female 4:58 AM EST Gender Identity Female 10/07/2024 10:24 PM EST Sexual Orientation Straight 10/07/2024 10 :24 PM EST documented as of this encounter Last Filed Vital Signs Vital Sign Reading Time Taken Comments Blood Pressure - - Pulse - - Temperature - - Respiratory Rate - - Oxygen Saturation - - Inhaled Oxygen Concentration - - Weight 70.3 kg (155 lb) 01/15/2025 9:36 AM EST Height 167.6 cm (5' 5.98 ) 01/15/2025 9:36 AM ES T Body Mass Index 25.03 01/15/2025 9:36 AM EST documented in this encounter Progress Notes * Bon Trujillo DPM - 01/15/2025 9:30 AM EST S Patient presents states that her left heel pain is still throbbing achy is a 4 5 out of 10 visual ask that she continues to use more supportive shoes which have helped she does note that she suffers from fibromyalgia as does get radiating pain occasion does note that her nails elongated painful thickened continue to grow into her skin she has severe nail deformities and she states she would like to consider nail procedure at some point pain discomfort in her nails a 7 out of 10 on a visual analog scale Last MD visit 10/12/2024 Dr Cary Talbot MD ROS: GENERAL: Pt denies nausea, fever, vomiting, chills, or shortness of breath. Pt in NAD. CARDIOLOGY: pt denies chest pain, palpitations LUNGS: pt denies shortness of breath MUSCULOSKELETAL: See HPI, otherwise no joint pain or swelling, back pain, or muscle pain. SKIN: see HPI, otherwise no lesions, rash or itching NEURO: No persistent headache, weakness or numbness The remainder of the review of systems is noncontributory PAST MEDICAL HISTORY: Patient Active Problem List Diagnosis Bilateral plantar fasciitis Constipation Fibromyalgia Foot pain Lateral epicondylitis of right elbow Trigeminal neuralgia Trigger finger, right little finger Trigger ring finger of right hand Tendonitis of left hip SOCIAL HISTORY: Social History Tobacco Use Smoking status: Never Smokeless tobacco: Never Substance Use Topics Alcohol use: No ACTIVE MEDICATIONS: Outpatient Medications Marked as Taking for the 01/15/25 encounter (Office Visit) with Bon Soria DPM Medication Sig Dispense Refill calcium carbonate-vitamin D3 500 mg-2.5 mcg (100 unit) tablet,chewable Take 1 capsule by mouth daily. carBAMazepine (CARBATROL) 300 mg 12 hr capsule Take 1 capsule (300 mg total) by mouth 2 (two) timesa day. cholecalciferol (VITAMIN D-3) 50 mcg (2,000 unit) capsule Take by mouth 3 times daily. fluticasone propionate (FLONASE) 50 mcg/actuation nasal spray 2 Sprays by Each Nare route daily. ginkgo biloba leaf extract 60 mg capsule Take 60 mg by mouth daily. lidocaine (LIDODERM) 5 % patch Apply 1 patch topically 1 (one) time each day. Remove & discard patch within 12 hours or as directed by MD. 30 each 2 MAGNESIUM CHELATE, MALATE ORAL Take by mouth 2 times daily. OMEGA-3 FATTY ACIDS ORAL Take by mouth 2 times daily. psyllium seed (PSYLLIUM ORAL) Take by mouth. VITAMIN B COMPLEX ORAL Take by mouth daily. ALLERGIES: Allergies Allergen Reactions Sulfa (Sulfonamide Antibiotics) Anaphylaxis and Hallucinations Other reaction(s): Delirium Other Solanum- Nightshade Vegetables NIGHT SHADES - diarrhea PHYSICAL EXAM: Visit Vitals Ht 1.676 m (65.98 ) Wt 70.3 kg (155 lb) BMI 25.03 kg/m?? OB Status Postmenopausal Smoking Status Never BSA 1.79 m?? PODIATRIC EXAMINATION: GENERAL: Patient appears well nourished, with NAD. VASCULAR: Dorsalis pedis pulses are 2/4 bilaterally and Posterior tibial pulses are 2/4 bilaterally. Capillary filling time within normal limits the digits. No pallor on elevation or rubor on dependency. Positive hair growth. No varicosities. Denies rest pain or claudication pain. NEUROLOGICAL: Sharp/dull sensation intact, protective sensation intact 10/10 with 5.07 semmes cheryl bilaterally, vibratory sensation with tuning fork intact to the tibial tuberosity. ORTHOPEDIC: Good muscle strength 5/5 of all flexors and extensors. Dorsi flexion of ankle ,0 degrees, plantar flexion WNL. No muscle atrophy. Resolution of right heel pain There is notable diffuse discomfort on the top of the foot with intrinsic musculature of the right foot. Pain with direct palpation of metatarsal heads 2 and 3 with positive Merrill's test of the second Irritation of the extensor tendons of the left foot noted with ganglion cyst mobile tissue fluid-filled of the extensor retinaculum at the anterior aspect of the ankle more noticeable since previous exam Heel pain localized to the lateral tubercle of the left calcaneus and short ligament of the CC joint left. Negative heel squeeze pain, Negative lateral calcaneal wall pain, Negative posterior heel pain. Negative pain of the achilles insertion. Negative tinells. Negative pain of the posterior tibial tendon. No palpable fibrous mass mid arch. Positive Achilles tendinitis left no muscle deficits left DERMATOLOGICAL:.No masses or skin lesions noted. Normal skin temperature, normal skin turgor. Absent toenail left great toe right great toe Severely abnormal thickened curved toenails of the lesser digits 2 through 5 both feet 9 toenails with embedded nail plate BIOMECHANICS: STJ ROM wnl, MTJ ROM wnl, 1st MPJ ROM wnl. IMAGING: Radiographs taken negative for stress fracture IMPRESSION: 1. Plantar fasciitis 2. Equinus contracture of ankle 3. Ingrowing nail 4. Dermatophytosis of nail 5. Difficulty walking 6. Pain in toe of left foot 7. Pain in toe of right foot PLAN: Revisited and recommended this patient declined aggressive strapping padding compression therapy applied Patient states was told about this time would recommend compressive therapy to her left ankle Discussed further workup to her left ankle including MRI to better evaluate for joint incongruency as well as possible early signs of arthritis patient is going to hold off on at this time Physical therapy referral placed continue with Lidocaine patches continue with Surgical options specific to gastroc recession open fasciectomy discussed and reviewed patient may benefit from this given that she is not getting associated Achilles tendinitis to minimize traction on the Achilles tendon as well as relieve her fascial ligament patient is likely think better options major reconstructive surgery is a 3-month recovery -Surgical discussion was revisited I would recommend an MRI prior to pursuing surgical intervention Steroid injection offered patient declined Revisit a minor surgical procedure for chronic recurrent ingrown nails Minor surgical procedure specific permanent nail matrixectomy was discussed and reviewed patient states he like to think about it but after discussion of recovery she like to hold off at this time Revisited minor surgical procedure in detail Patient should follow-up in 4 weeks Strapping padding performed of the left foot and ankle Bon Trujillo DPM documented in this encounter Plan of Treatment Upcoming Encounters Date Type Department Care Team (Late st Contact Info) Description 02/27/2025 3:30 PM EDT Office Visit Orthopedic Surgery - [address] [phone] Bon Trujillo DPM 175 [facility] [address] [place] [address] 10/14/2025 8:15 AM EST Office Visit Internal Medicine - [facility] 175 [facility] [address] [place] [phone] Dahiana Townsend MD [address] [phone] documented as of this encounter Visit Diagnoses Diagnosis Plantar fasciitis- Primary Plantar fascial fibromatosis Equinus contracture of ankle Ingrowing nail Dermatophytosis of nail Difficulty walking Difficulty in walking Pain in toe of right foot Pain in soft tissues of limb documented in this encounter Additional Health Concerns Assessment Noted Time PHQ-9 Depression Total Score: 4 10/07/20 24 10:52 PM EST documented as of this encounter Care Teams Automobile Mechanic Radiator Relationship Specialty Start Date End Date Dahiana Townsend MD [address] [phone] PCP - General Internal Medicine 06/05/21 documented as of this encounter
--- OUTSIDE RECORDS SUMMARY | 2025-02-07 08:46 | XMS_ITS | Encounter Summary ---
Author Organization [facility] Address [address] [place] [address] Care Team Providers Care Casting And Pasting Supervisor Name Role Phone Dahiana Townsend MD Primary Care Provider [phone] Reason for Visit * Rehabilitation - Outpatient (Routine) - Closed Specialty Diagnoses / Procedures Referred By Mika soliz Referred To Contact Physical Therapy Diagnoses Plantar fasciitis Equinus contracture of ankle Tendonitis, Achilles, left Tendonitis of left hip Bon Trujillo, DPM [address] [address] Phone: tel: fax: [facility] [address] [address] Phone: tel: fax: Referral ID Status Reason Start Date Expiration Date V isits Requested Visits Authorized [id number] Closed Specialty Services Required 10/02/2024 10/02/2025 21 21 Encounter Details Date Type Department Care Team (Late st Contact Info) Description 01/22/2025 9:00 AM EST Treatment [facility] [address] [phone] Marion Ying PT Plantar fasciitis (Primary Dx); Tendonitis of left hip; Equinus contracture of left ankle; Tendonitis, Achilles, left Social History Tobacco Use Types Packs/Day Years [...] for your loved ones. For example, child nutrition assistant or elderly care for an older adult? [...] PM EST documented as of this encounter Progress Notes * Marion Ying, PT - 01/22/2025 9:00 AM EST [facility] PHYSICAL THERAPY DISCHARGE NOTE Date: 01/22/2025 Visit Number: [id number] Patient Name: Rox Yan : 1965 Age: 59 y.o. Gender: female Diagnosis: ICD-10-CM ICD-9-CM 1. Plantar fasciitis M72.2 728.71 2. Tendonitis of left hip M76.892 727.09 3. Equinus contracture of left ankle M24.572 718.47 4. Tendonitis, Achilles, left M76.62 726.71 Date of Onset: 10/09/2022 Date of Surgery: N/A Referring Provider: Bon Trujillo DPM Insurance: Payor: [email or web address] PLAN / Plan: [employer]ICA[employer] / Product Type: *No Product type* / Patient Identified by: Marion Ying PT Language: Speaks and understands Chinese as preferred language with no day care supervisor required Medications: Current Outpatient Medications on File Prior to Visit Medication Sig Dispense Refill calcium carbonate-vitamin D3 [...] within 12 hours or as directed by . 30 each 2 MAGNESIUM CHELATE, MALATE ORAL Take by mouth 2 times daily. OMEGA-3 FATTY ACIDS ORAL Take by mouth 2 times daily. psyllium seed (PSYLLIUM ORAL) Take by mouth. VITAMIN B COMPLEX ORAL Take by mouth daily. No current facility-administered medications on file prior to visit. Allergies: is allergic to sulfa (sulfonamide antibiotics), other, and solanum- nightshade vegetables. Precautions: Fall Risk: No SUBJECTIVE Subjective Report: Patient reports she is doing well. Is using lidocaine patches occasionally whichhelps her pain a lot. Saw the foot doctor the other day and he taped her foot which really helps. Functional Limitations: Reported by Patient Last Re-Evaluation: limited with lifting and holding young kids but improving; sleep can still be challenging with leg positioning, sometimes pain when walking in foot Current: less pain with lifting/holding kids, sleeping better, foot less painful when walking Chart Reviewed: Yes Pain: Initial Evaluation: Current level of pain is rated a 8/10; Pain at worst over the past week is reported to be a 10/10 and at best is a 2/10 Current: Current level of pain 1/10; Pain at worst over the past week 4/10 and at best is a 0/10 OBJECTIVE Initial >> current Vitals: There were no vitals filed for this visit.; Gait: amb unassisted with minimally reduced heel strike Lumbar Spine ROM INITIAL EVAL CURRENT Lumbar flexion (0-60) 50 (to ankles) tight 50 to ankles tight Lumbar extension (0-35) 20 32 Lumbar side bending R (0-25) 25 25 Lumbar side bending L (0-25) 25 25 Lumbar Rotation R (0-20) 20 20 Lumbar Rotation L (0-20) 20 20 HIP RANGE OF MOTION Right PROM Left PROM INITIAL Left PROM CURRENT Flexion (120 deg) 120 110 groin pain 120 Extension (30 deg) NT NT Abduction (45 deg) 42 25 groin tight 40 Adduction (45 deg) NT NT External Rotation (45 deg) >45 40 Internal Rotation (45 deg) 35 15 tight 30 Ankle PROM: Initial eval: DF on R to 2 deg, L 0 deg Current: DF on R to 10 deg, L to 10 deg Hip Strength RIGHT LEFT INITIAL EVAL LEFT INITIAL CURRENT Flexion 5/5 4/5 P 5/5 Extension NT/5 NT/5 Abduction 5/5 4-/5 P 4+/5 Adduction NT/5 NT/5 Internal Rotation 5/5 4+/5 5/5 External Rotation 5/5 4-/5 P 4+/5 TREATMENT INTERVENTION: Procedures: SEE ABOVE OBJECTIVE MEASURES Discussed home exercise program, sleeping position, plan of care Pain Reassessment: 0 DISCHARGE SUMMARY ASSESSMENT: Reporting Period Start Date: 10/09/2024; End Date: 01/22/2025 Summary of Program/Progress to Date: Patient completed 3.5 months of PT (short gap in treatment in November due to scheduling error). Since she started until now, she is feeling less pain and improved function. Her hip strength has increased. Her lumbar, hip, and ankle ROM is better. She improved her hamstring flexibility. I discussed with her for at least her left foot, how she will likely have to continue stretches as a lifelong routine in order to maintain/improve her flexibility in her ankle/foot. I encouraged her to continue all home exercise program provided for hip and foot for now. If hip pain does not improve or worsens,would recommend seeing orthopedic for potential injection or other treatment. She can be dischargedfrom formal PT at this time. Patient Education: Education provided: continue home exercise program Education Provided To: Patient utilizing Explanation mode(s) of education Response to Education: Verbal Understanding GOALS Goals Addressed This Visit's Progress LTG Improving General Technician Goals 1. Patient will be independent with home exercise program to maintain therapeutic gains.- MET 2. Patient will be able to lift with min to no pain- MET 3. Patient will be able to sleep with min to no pain- MET STG 4 weeks On track Short Term Goals 1. Initiate home exercise program.- MET 2. Pain will be improved by 2-3 points on VAS.- MET 3. Patient will improve hip strength by 1/3 grade on manual muscle testing.- MET 4. Patient will improve hamstring ROM by >5 deg.- MET PLAN POC Development/Review: General Description as Follows: discharge to home exercise program : Participants: Patient Reasons Why Continued Therapy Is Not Recommended: Goals Have Been Achieved Recommended Consults: none at this time, may check in with ortho if hip pain persists Equipment Recommended: none; Equipment Provided: none Total Treatment Time: 25 Modalities: Therapeutic procedures: Therapeutic Exercise Time Entry: 25 Documentation completed by Marion Ying PT documented in this encounter Plan of Treatment Upcoming Encounters Date Type Department Care Team (Late st Contact Info) Description 02/27/2025 3:30 PM EDT Office Visit Orthopedic Surgery - [place] [address] 175 [facility] [address] [place] [address] Bon Trujillo DPFederico 175 [facility] [address] [place] [address] 10/14/2025 8:15 AM EST Office Visit Internal Medicine - [place] 175 [facility] [address] [place] [phone] Dahiana Townsend MD 175 [facility] [address] [place] [phone] documented as of this encounter Visit Diagnoses Diagnosis Plantar fasciitis- Primary Plantar fascial fibromatosis Tendonitis of left hip Equinus contracture of left ankle Tendonitis, Achilles, left documented in this encounter Additional Health Concerns Assessment Noted Time PHQ-9 Depression Total Score: 4 10/07/20 24 10:52 PM EST documented as of this encounter Care Teams Casting And Pasting Supervisor Relationship Specialty Start Date End Date Dahiana Townsend MD 175 [facility] 200 [place] [phone] PCP - General Internal Medicine 06/05/21 documented as of this encounter
--- OUTSIDE RECORDS SUMMARY | 2025-02-07 08:46 | XMS_ITS | Data Portability ---
Author Organization [place] - [facility], Allergy Address [address] [address] Care Team Providers Care Action Installer Name Role Phone YVROSE DICKERSON Primary Care Provider Assessment Encounter Date Assessment Date Assessment LastModified by Organization Details LastModified Time 05/01/2024 05/01/2024 Nasal endoscopy was completed today and the left posterior nasal polyp is stable in appearance. She will continue to follow with her other specialists for management of her facial pain. I will see her back in six months for an ear cleaning and we will recheck the polyp in a year. [email or web address] Not available 05/01/2024 16:02:03 2024 2024 59 year old female with a right middle ear effusion in the setting of a URI. There is no evidence of infection today. Recommend she use Afrin BID x 3 days and start Flonase. We discussed that we typically avoid antibiotic treatment unless symptoms have been present for at least two weeks or are worsening. [email or web address] Not available 2024 14:23:39 07/10/2024 07/10/2024 Reviewed with patient effusion is resolving. Recommend crossed hand technique for application of Nasacort; rationale reviewed. Do not restart Afrin or Sudafed. As Ear Popper was somewhat helpful, reviewed she could buy and use Eustachi. Reviewed it can takes weeks to months for this problem to fully resolve. Patient to call with worsening, lack of resolution, or development of other symptoms. [email or web address] Not available 07/10/2024 12:54:00 08/07/2024 08/07/2024 On examination today the effusion has resolved. Tympanometry is normal. Discussed she is likely having some lingering symptoms of eustachian tube dysfunction in the setting of her recent URI and OM. These should improve in the next several weeks. She will follow up in October as planned for the ear cleaning. [email or web address] Not available 08/07/2024 16:55:22 10/30/2024 10/30/2024 Nasal endoscopy was performed today. She has a stable small polyp in the left posterior nasal cavity. Recommend she try Flonase for her postnasal drip and nasal congestion instead. She will follow up with JOSH Babin in six months. [email or web address] Not available 10/30/2024 16:56:11 Plan of Treatment Reminders Order Date Submit Date Provider Last Modified By Organization Details Last Modified Time Details Appointments Establish ed 15 2024 09:00A M SUAD PRATER PA-C Not available Not available Not available Lab None recorded. Referral None recorded. Procedures None recorded. Surgeries None recorded. Imaging None recorded. Medication Orders fluticaso ne propionat e 50 mcg/actua tion nasal spray,william pension 2023 024 [id number], [address] [facility], [place], [address], 10/30/2024 16:07:40 Patient TargetsNo targets recorded. Patient InstructionsNo instructions recorded. Reason for Referral None Reported. Results Created Date Observation Date Name Description Value Unit Range Abnormal Flag Note LastModifiedBy Organization Detail LastModifiedTime 05/04/20 24 03/27/2024 MRI, brain , w/wo contr ast No observ ation record ed. [email or web address] Not Available 2023 15:36:49 05/04/20 24 11/30/2023 MRI, cervi ant spine , w/o contr ast No observ ation record ed. [email or web address] Not Available 2023 15:39:06 07/11/20 24 09/30/2022 imagi ng/di agnos tic resul t No observ ation record ed. [email or web address] Not Available 07:40:39 07/11/20 24 10/01/2023 imagi ng/di agnos tic resul t No observ ation record ed. [email or web address] Not Available 07:40:41 08/07/20 24 audio gram No observ ation record ed. [email or web address] Not Available 2023 16:24:13 Result Notes None recorded. 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; Location: left Note : Date Diagnosed : 02/16/2018 3:33 PM (B36.8) Not Available [facility] 4 02:18:17 Migraine 47852149 Active 2017 Other migraine, not intractab le, without status migrainos us; Note: Date Diagnosed : 8 5:14 PM (G43.809) Not Available [facility] 4 02:18:46 Impacted cerumen 45845761 Active 2014 Impacted cerumen; CMS Risk: low risk CMS Treatment : new problem (to examiner) : no additiona l workup planned Not Available [facility] 4 02:18:54 Impacted cerumen of bilateral ears 24945403843 31471 Active 2015 Impacted cerumen, bilateral ; Note: Date Diagnosed : 6 5:03 PM (H61.23) Not Available [facility] 4 02:19:11 Abnormal findings on diagnosti c imaging of skull and head 261729880 Active 2022 Abnormal findings on diagnosti c imaging of skull and head, not elsewhere classifie d; Note: Date Diagnosed : 3 12:36 PM (R93.0) Not Available [facility] 4 02:19:27 Disorder of right Eustachia n tube 31469988205 37570 Active 2017 Other specified disorders of Eustachia n tube, right ear; Note: Date Diagnosed : 8 3:52 PM (H69.81) Not Available [facility] 02:18:32 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; Note: Date Diagnosed : 11/24/2023 3:37 PM (G50.1) Not Available [facility] 02:19:27 Myoclonus 19695026 Active 2017 Myoclonus ; Note: Date Diagnosed : 8 5:15 PM (G25.3) Not Available [facility] 02:18:48 Nasal congestio n 06387179 Active 2017 Nasal congestio n; Note: Date Diagnosed : 02/16/2018 3:29 PM (R09.81) Not Available [facility] 02:19:31 Polyp of nasal cavity 426759513 Active 2023 Polyp of nasal cavity; Note: Date Diagnosed : 11/24/2023 3:37 PM (J33.0) Not Available [facility] 02:19:22 Acute serous otitis media of right ear 87144675114 86320 Active 2023 GERBER PLAZA PA-C [address] [facility],[place] [address], [place], [address] , [facility] 4 14:20:31 Acute upper respirato ry infection 66293422 Active 2023 GERBER PLAZA PA-C [address] [facility],[place] [address], [place], [address] , [facility] 4 14:22:40 Problem Notes None recorded. Procedures Surgical History Date Name Laterality Status Provider Name and Address Organization Details Recorded Time 10/30/20 24 JMSNasal/Sinus Endoscopy completed GERBER PLAZA PA-C [address] [facility],[address], [address], [facility] 10/30/2024 16:53:51 08/07/20 24 Tympanometry (40813) completed LENKA HARRISON [address] [facility],[address], [address], [place] - [facility] 08/07/2024 15:56:25 05/01/20 24 JMSNasal/Sinus Endoscopy completed GERBER PLAZA PA-C [address] [place] [address], [address], [place] - [facility] 05/01/2024 15:58:29 Imaging Results Imaging Date Name Status LastModified by Organiz ation Details LastModified Time 03/27/2024 MRI, brain, w/wo contrast completed Information not available 06/04/2024 15:36:49 11/30/2023 MRI, cervical spine, w/o contrast completed Information not available 06/04/2024 15:39:06 09/30/2022 imaging/diagno stic result completed Information not available 07/11/2024 07:40:39 10/01/2023 imaging/diagno stic result completed Information not available 07/11/2024 07:40:41 08/07/2024 audiogram completed BARCODE Information no t available 08/07/2024 16:24:13 Procedure Notes None recorded. Medical Equipment None Reported. Allergies Allergen ID Allergen Name Allergen Category Reaction Reaction Severity Criticality Documentation Date Start Date Code Code System Note Provider Name and Address Organization Details Recorded Time 96748 Substance with sulfonami de structure and antibacte rial mechanism of action (substanc e) medicatio n other Not available Not available 04/03/2024 61136 8003 SNOMED React ion: unkno wn, unspe cifie d;; Not Available [facility] 00:50:42 Medications Name Sig Start Date Stop Date Status Note LastModified by Organization Details LastModified Time methocarb rhina 500 mg tablet 08/07 completed Medicati on ID: [id number] Du ration Value: 30 Brand Name: methocar bamol Se nd Method: E-Prescr ibed Sub s Allowed: subs OK Speci al Instruct ion: TK 1 T PO QD Medic ationGen ericName : methocar bamol Not Available Not Available Not Available prednison e 10 mg tablet 08/07 completed Not Available Not Available Not Available nabumeton e 750 mg tablet 08/07 completed Medicati on ID: [id number] D uration Value: 30 Brand Name: tianaumeto ne Send Method: E-Prescr ibed Sub s Allowed: subs OK Speci al Instruct ion: TK 2 TS PO QD WF PRN Medi cationGe nericNam e: nabumeto ne Not Available Not Available Not Available tizanidin e 2 mg tablet 08/07 completed Medicati on ID: [id number] D uration Value: 30 Brand Name: tidania ne Send Method: E-Prescr ibed Sub s Allowed: subs OK Speci al Instruct ion: TK 1 T PO QHS PRN FOR MUSCLE SPRAIN/A ARIANNA FOR UP TO 30 DAYS Med icationG enericNa me: tizanidi ne Not Available Not Available Not Available trazodone 50 mg tablet 08/07 completed Medicati on ID: [id number] Du ration Value: 30 Brand Name: trazodon e Send Method: E-Prescr ibed Sub s Allowed: subs OK Speci al Instruct ion: TK 1 T PO QHS Medi cationGe nericNam e: trazodon e Not Available Not Available Not Available azithromy russ 250 mg tablet 08/07 completed Not Available Not Available Not Available Lotrisone 1 %-0.05 % topical cream 10/30 completed Medicati on ID: [id number] P rescribe d By Name: YVES Miller nd Name: Lotrison e Send Method: E-Prescr ibed Sub s Allowed: subs OK Speci al Instruct ion: apply to external ear tid X 2 weeks Me dication GenericN jelena: Lotrison e Not Available Not Available Not Available meloxicam 15 mg tablet 08/07 completed Medicati on ID: [id number] D uration Value: 30 Brand Name: meloxica m Send Method: E-Prescr ibed Sub s Allowed: subs OK Speci al Instruct ion: TK 1 T PO D WF Medic ationGen ericName : meloxica m Not Available Not Available Not Available prednison e 20 mg tablet 08/07 completed Not Available Not Available Not Available meloxicam 7.5 mg tablet 11/04 completed Medicati on ID: [id number] Du ration Value: 15 Reason: () Brand Name: meloxica caren Send Method: E-Prescr ibed Sub s Allowed: subs OK Speci al Instruct ion: TAKE 1 TO 2 TABLETS BY MOUTH QD Medic ationGen ericName : meloxica m Not Available Not Available Not Available lorazepam 0.5 mg tablet 08/07 completed Not Available Not Available Not Available metoclopr amide 5 mg tablet 08/07 completed Not Available Not Available Not Available lorazepam 2 mg tablet 08/07 completed Not Available Not Available Not Available carbamaze pine ER 200 mg tablet,ex tended release,1 2 hr 08/07 completed Not Available Not Available Not Available lidocaine 5 % topical patch active Not Available Not Available Not Available mupirocin 2 % topical ointment 08/07 completed Medicati on ID: [id number] Pr escribed By Name: YVES [place] nd Name: mupiroci n Send Method: E-Prescr ibed Sub s Allowed: subs OK Speci al Instruct ion: apply intranas ally tid X 1 week Med icationG enericNa me: ancelmo n Not Available Not Available Not Available gabapenti n 100 mg capsule Take 1 capsule by mouth twice a day 08/07 completed Medicati on ID: [id number] D uration Value: 30 Brand Name: gabapent in Send Method: E-Prescr ibed Sub s Allowed: subs OK Medic ationGen ericName : gabapent in Not Available Not Available Not Available methylpre dnisolone 4 mg tablets in a dose pack 08/07 completed Medicati on ID: [id number] D uration Value: 6 Brand Name: methylpr ednisolo ne Send Method: E-Prescr ibed Sub s Allowed: subs OK Speci al Instruct ion: Take 1 pack as directed Medicat ionGener icName: methylpr ednisolo ne Not Available Not Available Not Available fluticaso ne propionat e 50 mcg/actua tion nasal spray,william pension [place] 2 spray into both nostrils once a day active Not Available Not Available No t Available naratript an 2.5 mg tablet 08/07 completed Medicati on ID: [id number] Du ration Value: 30 Brand Name: naratrip maldonado Send Method: E-Prescr ibed Sub s Allowed: subs OK Speci al Instruct ion: TAKE 1 T PO AT ONSET OF HEADACHE MAY REPEAT ONCE IN 4 HOURS Me dication GenericN jelena: naratrip maldonado Not Available Not Available Not Available dicyclomi ne 10 mg capsule active Not Available Not Available Not Available mometason e 0.1 % topical cream 10/30 completed Medicati on ID: [id number] P rescribe d By Name: YVES Jamil nd Name: mometaso ne Send Method: E-Prescr ibed Sub s Allowed: subs OK Speci al Instruct ion: Apply to ears twice a day as needed M edicatio nGeneric Name: mometaso ne Not Available Not Available Not Available cyclobenz aprine 5 mg tablet active Not Available Not Available No t Available carbamaze pine ER 100 mg capsule,e xtended release [id number] r active Not Available Not Available Not Available carbamaze pine ER 200 mg capsule,e xtended release [id number] r active Not Available Not Available Not Available Fluvirin (PF) 45 mcg (15 mcg x3)/0.5 mL intramusc ular syringe 08/07 completed Medicati on ID: [id number] Du ration Value: 1 Brand Name: Fluvirin 5 (PF) Sen d Method: E-Prescr ibed Sub s Allowed: subs OK Speci al Instruct ion: inject 0.5 millilit er intramus cularly Medicati onGeneri cName: Fluvirin 5 (PF) Not Available Not Available Not Available Vitals Date Recorded Body height Body mass index (BMI) Body weight Provider Name and Address Organization Details Last Updated DateTime 2024 166.37 cm 24.6 kg/m2 86007.86 g Harshil Badillo [place] - [facility] 2024 13:56:50 Date Recorded Body height Body mass index (BMI) Body weight Provider Name and Address Organization Details Last Updated DateTime 07/10/2024 166.37 cm 24.6 kg/m2 19556.86 g Lidia Umesh [place] - [facility] 07/10/2024 11:21:05 Date Recorded Body height Body mass index (BMI) Body weight Provider Name and Address Organization Details Last Updated DateTime 08/07/2024 166.37 cm 23.8 kg/m2 71549.89 g Octavia Garcia [place] - [facility] 08/07/2024 15:42:06 Date Recorded Body height Provider Name an d Address Organization Details Last Updated DateTime 10/30/2024 166.37 cm [employer] [place] [facility] 10/30/2024 15:21:41 Date Recorded Body height Body mass index (BMI) Body weight Provider Name and Address Organization Details Last Updated DateTime 05/01/2024 166.37 cm 24.6 kg/m2 73112.86 g Lidia Calvo [place] - [facility] 05/01/2024 15:15:48 Social History None recorded. Functional Status None recorded. Mental Status None recorded. Family History Nothing Reported. Medical History No medical history recorded. Gynecological HistoryNo gynecological history recorded. Obstetrics History GPAL:G 0 P 0 0 0 0 Past Encounters Encounter ID Performer Location Encounter Start Date Encounter Closed Date Diagnosis/Indication Diagnosis SNOMED-CT Code Diagnosis ICD10 Code Diagnosis Note [id number] RANDI GRAMAJO MD [facility] includes the [facility] on [address] [place] [phone] 05/01/2024 15:04:34 05/07/2024 12:02:04 Polyp of nasal cavity 170520729 J33.0 Atypical facial pain 713 77198 G50.1 [id number] GERBER PLAZA PA-C [facility] includes the [facility] on [address] [place] [id number] 2024 13:52:32 2024 15:30:09 Acute serous otitis media of right ear 4079130285 210357 H65.01 Acute uppe r respiratory infection 24263985 J06.9 [id number] ELIAZAR CHAUDHARY MD [facility] [address] [place] [address] 07/10/2024 11:15:17 07/10/2024 11:50:55 Acute serous otitis media of right ear 0147762273 507765 H65.01 [id number] RANDI GRAMAJO MD [facility] includes the [facility] on [address] [place] [phone] 08/07/2024 15:31:26 08/07/2024 16:59:48 Disorder of right Eustachian tube 0332022040 864880 H69.81 Right Ear: Type A tympanogra m.Left Ear: Type A tympanogra m [id number] RANDI GRAMAJO MD [facility] includes the [facility] on [address] [place] [id number] 10/30/2024 15:20:53 10/30/2024 16:10:37 Polyp of nasal cavity 417267277 J33.0 Nasal congestion 9514948 0 R09.81 Health Concerns Section Related Observation LastModified by Organization Detai ls LastModified Time None Recorded Concern Status LastModified by Organization Details LastModified Time None Recorded Advance Directives Directive None Recorded Payers Encounter Date Sequence Insurance Name Policy Number Policy Hagen Covered Member ID Hagen Member ID Guarantor Name 05/01/[address] [facility] PL[facility] (MEDICAID HMO) [id number] Rox Yan [id number] Rox Yan [address] [facility] PLAN (MEDICAID HMO) [id number] Rox Yan [id number] Rox Yan 07/10/[address] 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 The surgeon did not think surgery was warranted. She has had suboccipital injections at [facility] which helped somewhat. She is awaiting to try trigeminal neuralgia injections. She is currently undergoing PT for her neck and considering accupuncture.She did have an updated MRI of her brain and c-spine, which showed a stable small left posterior nasal polyp. 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 She also has a left sided nasal polyp that we are monitoring.She is here today for evaluation of the right ear. She developed URI symptoms on Tuesday of nasal congestion and runny nose. She has also had some voice changes. Last night she developed severe pressure in her right ear. She was unable to lay flat. Her hearing feels off in the right ear as well, she has had some sound sensitivity. GERBER PLAZA PA-C [address] [facility] [address] [place] [address], [phone], [facility] 2024 14:23:51 07/10/2024 text/html 59 year old donovan shanks presents for re-evaluation of the right ear. Was seen 06/29 in our [place] office and diagnosed with effusion in the setting of a URI. States 4-5 days later the ear started draining and popping but a few days later that stopped and the ear felt full again. Took Afrin and Sudafed for 5 days after diagnosis and discontinued that. Taking Nasacort. Still having postnasal drip. Pressure in the right side of the head. No rhinorrhea. Has been using auto-insufflation, which makes the ear pop. Hearing does not improve. ELIAZAR BANKS MD [address] [address], [place], [address], [place] - [facility] 07/10/2024 16:58:18 08/07/2024 text/html 59 year old donovan shanks with a right sided middle ear effusion in the setting of a URI. She was seen in early June, and then in follow up in our [place] office on 07/10/24. At that visit the effusion was improving, continued observation was recommended. Since then she did see her PCP and was treated with prednisone and antibiotics for a sinus infection.She still feels like she has fluid in her right ear. Sinus symptoms seem better. Still reports some coughing in the morning, although better. RANDI GRAMAJO MD [address] [facility],[address], [address], [facility] - [facility] 08/08/2024 07:26:09 10/30/2024 text/html 58 year old donovan shanks presents today for follow up for a left posterior nasal polyp.She uses Xlear for nasal congestion which helps, but she still does have some postnasal drip and a tickle in her throat which can cause a cough from time to time. She is interested in trying another nasal spray.She has chronic facial pain which has been worked up extensively to date. She is on Tegretol for trigeminal neuralgia. Also has a history of Eklutna's Syndrome, was seen in [place] and she is not having surgery for this. RANDI GRAMAJO MD [address] [facility],[address], [address], [facility] - [facility] 10/31/2024 08:24:08 OBGyn Episode No OBEpisode recorded.
--- OUTSIDE RECORDS SUMMARY | 2025-02-07 08:46 | XMS_ITS | Encounter Summary ---
Author Organization [facility] Address [address] [place] [address] Care Team Providers Care Pulmonary Care Nurse Name Role Phone Dahiana Townsend MD Primary Care Provider [phone] Reason for Visit * Rehabilitation - Outpatient (Routine) - Closed Specialty Diagnoses / Procedures Referred By Mika soliz Referred To Contact Physical Therapy Diagnoses Plantar fasciitis Equinus contracture of ankle Tendonitis, Achilles, left Tendonitis of left hip Bon Trujillo, DPM [address] [address] Phone: tel: fax: [facility] [address] [address] Phone: tel: fax: Referral ID Status Reason Start Date Expiration Date V isits Requested Visits Authorized [id number] Closed Specialty Services Required 10/02/2024 10/02/2025 21 21 Encounter Details Date Type Department Care Team (Late st Contact Info) Description 01/08/2025 8:00 AM EST Treatment [facility] [address] [address] Marion Ying PT Tendonitis of left hip (Primary Dx); Plantar fasciitis; Equinus contracture of left ankle; Tendonitis, Achilles, [...] care for your loved ones. For example, early childhood teacher assistant or elderly care for an older [...] Progress Notes * Marion Ying, PT - 01/08/2025 8:00 AM EST [facility] - Outpatient PHYSICAL THERAPY DAILY TREATMENT NOTE - OP Date: 01/08/2025 Visit Number: [id number] Patient Name: Rox Yan : 1965 Age: 59 y.o. Gender: female Diagnosis: ICD-10-CM ICD-9-CM 1. Tendonitis of left hip M76.892 727.09 2. Plantar fasciitis M72.2 728.71 3. Equinus contracture of left ankle M24.572 718.47 4. Tendonitis, Achilles, left M76.62 726.71 Date of Onset/Surgery: 10/09/2022 Referring Provider: Bon Trujillo DPM Insurance: Payor: [employer] / Plan: [employer]ICA[employer] / Product Type: *No Product type* / Patient Identified by: Marion Ying PT Language: Speaks and understands Kiswahili as preferred language with no staff interpreter required Medications: Current Outpatient Medications on File [...] B COMPLEX ORAL Take by mouth daily. [DISCONTINUED] lidocaine (LIDODERM) 5 % patch Apply 1 patch topically 1 (one) time each day. Remove& discard patch within 12 hours or as directed by MD. 30 each 2 No current facility-administered medications on file prior to visit. Allergies: is allergic to sulfa (sulfonamide antibiotics), other, and solanum- nightshade vegetables. Precautions: Fall risk: No SUBJECTIVE Subjective Report: Patient reports hip is a little better. Using lidocaine patches on it at night with good results. Chart Reviewed: Yes Pain: left hip TREATMENT INTERVENTION: Recumbent bike x 5 min L3 Standing hamstring stretching and hip flexor on step 2 x 20 sec Lateral step up 2 x 10 6 step bilateral Supine bridge blue theraband 2 x 10, 5 sec hold Supine ITB stretch stretch 3 x 15 sec on L Home exercise program for left foot: Calf stretch towel under toes knee bent/straight 3 x 20-30 sec hold Calf raises towel roll under toes knee bent/straight x 10 each (can try eccentric if able) ITB stretch (whichever feels best) 1-2x a day 3x 15-20 sec hold Home exercise program for hip: Band marches Sidestepping band and/or lateral step ups Hamstring/hip flexor stretch on step Supine ITB stretch strap Supine bridge band ASSESSMENT/Response to Treatment Good Progressing well with strengthening for her hip. Has one more session and will finalize home exercise program at this time. Patient Education: Education provided: continue home exercise and can try lateral steps Education Provided To: Patient utilizing Explanation and Printed Material mode(s) of education Response to Education: Verbal Understanding PLAN POC Development/Review: No Change in the Plan of Care; Participants: Patient Interventions Time Entry: Modalities: Therapeutic procedures: Therapeutic Exercise Time Entry: 25 Total Treatment Time: 25 Documentation completed by Marion Ying PT documented in this encounter Plan of Treatment Upcoming Encounters Date Type Department Care Team (Late st Contact Info) Description 02/27/2025 3:30 PM EDT Office Visit Orthopedic Surgery - [place] [facility] 175 [facility] 250 [place] [phone] Bon Trujillo DPFederico [address] [address] 10/14/2025 8:15 AM EST Office Visit Internal Medicine - [place] 175 [facility] 200 [place] [phone] Dahiana Townsend MD [address] [phone] documented as of this encounter Visit Diagnoses Diagnosis Tendonitis of left hip- Primary Plantar fasciitis Plantar fascial fibromatosis Equinus contracture of left ankle Tendonitis, Achilles, left documented in this encounter Additional Health Concerns Assessment Noted Time PHQ-9 Depression Total Score: 4 10/07/20 24 10:52 PM EST documented as of this encounter Care Teams Pulmonary Care Nurse Relationship Specialty Start Date End Date Dahiana Townsend MD [address] [phone] PCP - General Internal Medicine 06/05/21 documented as of this encounter
--- OUTSIDE RECORDS SUMMARY | 2025-02-07 08:46 | XMS_ITS | Encounter Summary ---
Author Organization [facility] Address [address] [place] [address] Care Team Providers Care Certified Pediatric Nurse Practitioner Name Role Phone Dahiana Townsend MD Primary Care Provider [phone] Encounter Details Date Type Department Care Team ([facility] st Contact Info) Description 01/02/2025 Patient Outreach Orthopedic Surgery - [place] [address] [phone] Bon Trujillo, DPM [address] [address] Social History Tobacco Use Types Packs/Day Years [...] Record ed Within the last 3 months, ely aponte many times did you visit the emergency [...] for your loved ones. For example, child support specialist or elderly care for an older adult? [...] as of this encounter Progress Notes * Inna Briggs MA - 01/02/2025 10:15 AM EST Lidocaine pathches are being sent to [address] per patient chriswa does not carry the correct NDC'S of kayode booker documented in this encounter Plan of Treatment Upcoming Encounters Date Type Department Care Team (Late st Contact Info) Description 02/27/2025 3:30 PM EDT Office Visit Orthopedic Surgery - [place] 250 175 [facility] 250 [place] [address] Bon Trujillo, DPM 175 [facility] 250 [place] [address] 10/14/2025 8:15 AM EST Office Visit Internal Medicine - [place] 175 [facility] 200 [place] [address] Dahiana Townsend MD [address] [phone] documented as of this encounter Visit Diagnoses Diagnosis Plantar fasciitis- Primary Plantar fascial fibromatosis documented in this encounter Additional Health Concerns Assessment Noted Time PHQ-9 Depression Total Score: 4 10/07/20 24 10:52 PM EST documented as of this encounter Care Teams Certified Pediatric Nurse Practitioner Relationship Specialty Start Date End Date Dahiana Townsend MD 175 [facility] 200 [place] [address] PCP - General Internal Medicine 06/05/21 documented as of this encounter
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
== END 2025-02-07 08:50 | disposition home or self-care (01) ==
LOC: HO.HSMS 08:31
PROVIDERS: PCP Internal Medicine; Visit Provider Psychiatry & Neurology Neurology
DX: M47.812 Spondylosis without myelopathy or radiculopathy, cervical region (principal); G50.0 Trigeminal neuralgia
CPT/HCPCS: 99214; G2211

== ENCOUNTER → 2025-02-07 08:30 | Outpatient (BNVA) | payer OTHER, SELFPAY | PROVIDERS: PCP Internal Medicine; Visit Provider Psychiatry & Neurology Neurology | DX: M47.812 Spondylosis without myelopathy or radiculopathy, cervical region (principal); G50.0 Trigeminal neuralgia | CPT/HCPCS: 99212 ==

== ENCOUNTER 2025-04-29 12:23 | Outpatient (AMB) | payer OTHER, SELFPAY ==
--- NOTE | 2025-04-29 12:30 | MHC.OFFVIS ---
Vital Signs 04/29/25 12:37 Height 5 ft 6 in Weight 158 lb BMI 25.5 BP 118/78 Blood Pressure Location Rt brachial Position Sitting Intake Visit Reasons: URGENT follow up Intake Note: Patient presents for urgent follow up. having burning sensation on hands and in back right shoulder blade. Allergies Sulfa (Sulfonamide Antibiotics) Allergy (Severe, Verified 04/29/25 12:31) Anaphylaxis HPI Comments Details: 59 year old female with h/o cervical- spondylosis and Trigeminal Neuralgia like symptoms presents for an urgent follow up. she reports burning sensation in her right hand dorsal surface - when her sleeve touches, she also has an abnormal sensation in her midback and her scalp tenderness has worsened.. she is doing good tegretol 200mg bid she tried 300mg bid but had tremors and did not provide additional benefit. PT has helped in the past for her neck and head. Denies vision changes nausea and vomiting, vertigo and falls. She wears trifocals so vision is at baseline blurry, she sees her metal model builder regularly. She also had 3 episodes of Shingles years ago and it all affected her L[place]side- 20 years ago [facility] Medical History Trigeminal neuralgia of left side of face Trigeminal neuralgia Chronic migraine with aura Cervical spondylosis Eczema Fibromyalgia Surgical History History of nasal surgery H/O adenoidectomy History of appendectomy Family History Sister Breast cancer Sister Cervical cancer Social History Alcohol intake: current Alcohol intake frequency: holidays/special occasions only Patient Tobacco Use Status: Never used Tobacco Current occupational status: employed 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, 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 Review of Systems ENT Reports Normal hearing present Neuro Reports Normal hearing present Physical Exam Vital Signs: Last Vital Signs BP 118/78 04/29/25 12:37 BMI result Body Mass Index 25.5 Const General: cooperative, comfortable and no acute distress Orientation/consciousness: patient oriented x3 HEENT Head: Yes normal to inspection Mouth: tongue normal Eyes General: appearance normal, both eyes and all related structures Pupils: Equal, round and reactive pupils present, Pupils normal by confrontation and Pupil accommodation reflex normal Neck Neck: Yes full ROM (limited ROM to left.) and Yes supple Resp Effort & Inspection: normal respiratory effort and able to speak in complete sentences Neuro General: patient oriented x3 Cranial nerves: Yes CN's II-XII intact bilaterally, Yes Facial sensation intact/muscles of mastication intact, Yes Equal, round and reactive pupils present, Yes Normal accommodation reflex present, Yes Normal facial strength present, Yes Midline tongue present, Yes Symmetric palate elevation present, Yes Normal hearing present, Yes Ability to bilaterally rotate head present and Yes Ability to bilaterally elevate shoulders present Gait exam (Neuro): Normal gait present Motor exam (neuro): 5/5 motor strength present throughout (weakness on the left 3/5 upper ext.) Coordination: [id number] test normal Psych Appearance: grossly normal Affect: normal affect Attitude: cooperative Insight: Good insight present (Psych) Judgement: Good judgement present (Psych) Assessment & Plan Assessment & Plan (1) Paresthesias: Comment: ? shingles Code(s): R20.2 - Paresthesia of skin Category: Medical (2) Trigeminal neuralgia of left side of face: Comment: related to long styloid ? Code(s): G50.0 - Trigeminal neuralgia Category: Medical (3) Cervical spondylosis: Code(s): M47.812 - Spondylosis without myelopathy or radiculopathy, cervical region Category: Medical Plan continue carbamazapine, from 200ER bid Labs VZV antibody and culture ID ref Follow up in 4 months. Orders: Orders Varicella Zoster Rapid Culture Today R20.2 - Paresthesia of skin Varicella IgG Antibody Today R20.2 - Paresthesia of skin Referrals Infectious Disease Referral B02.9 - Zoster without complications, R20.2 - Paresthesia of skin Coding Level of Care Code Est Pt Level 4 (23397) Complex EM visit Add On G2211 Diagnoses Paresthesias R20.2 Trigeminal neuralgia of left side of face G50.0 Cervical spondylosis M47.812
[2025-04-29 12:37] VITALS: BP 118/78; BMI 25.5
== END 2025-04-29 13:00 | disposition home or self-care (01) ==
LOC: HO.HSMS 12:23
PROVIDERS: PCP Internal Medicine; Visit Provider Psychiatry & Neurology Neurology
DX: R20.2 Paresthesia of skin (principal); G50.0 Trigeminal neuralgia; M47.812 Spondylosis without myelopathy or radiculopathy, cervical region
CPT/HCPCS: 99214; G2211

== ENCOUNTER → 2025-04-29 12:23 | Outpatient (BNVA) | payer OTHER, SELFPAY | PROVIDERS: PCP Internal Medicine; Visit Provider Psychiatry & Neurology Neurology | DX: R20.2 Paresthesia of skin (principal); G50.0 Trigeminal neuralgia; M47.812 Spondylosis without myelopathy or radiculopathy, cervical region | CPT/HCPCS: 99212 ==

== ENCOUNTER 2025-04-29 13:06 | Outpatient (REF) | payer OTHER, SELFPAY ==
[2025-05-01 11:53] LABS: Varicella IgG Antibody 7.48 S/CO
== END 2025-04-29 13:07 | disposition home or self-care (01) ==
LOC: HO.HKASLDS 13:06
PROVIDERS: Visit Provider Psychiatry & Neurology Neurology
DX: R20.2 Paresthesia of skin (principal)
CPT/HCPCS: 36415; 86787

== ENCOUNTER 2025-05-01 14:57 | Outpatient (AMB) | payer OTHER, SELFPAY ==
--- NOTE | 2025-05-01 15:00 | A.OFFVIS_ITS ---
Vital Signs 05/01/25 15:05 Height 5 ft 6 in Weight 5 lb 5 oz BMI 0.9 BP 92/60 Blood Pressure Location Lt brachial Position Sitting Pulse 62 Pulse Source Pulse Oximeter Pulse Oximetry (%) 98 Oxygen Delivery Method Room Air Intake Visit Reasons: Paresthesia of skin Allergies Sulfa (Sulfonamide Antibiotics) Allergy (Severe, Verified 05/01/25 15:09) Anaphylaxis HPI HPI Paresthesia of skin: Details: She is referred for concern over active VZV virus. She has had left chest discomfort and facial and head discomfort with lancinating pain for last six months. She has had zoster left face 15-20 years ago three times and not after that. 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 Review of Systems Const All systems reviewed & are unremarkable except as noted in HPI and below Physical Exam Vital Signs: Last Vital Signs Pulse 62 05/01/25 15:05 BP 92/60 05/01/25 15:05 Pulse Ox 98 05/01/25 15:05 Oxygen Delivery Method Room Air 05/01/25 15:05 BMI result Body Mass Index 0.9 Const General: cooperative HEENT Head: Yes normal to inspection Face and sinus: Yes normal facial exam Mouth: Normal oral and palatal mucosa present Teeth and gingiva: dentition normal Eyes General: appearance normal, both eyes and all related structures Pupils: Equal, round and reactive pupils present Resp Effort & Inspection: normal respiratory effort Cardio Rate: regular rate Rhythm: regular rhythm GI Palpation (GI): Soft to palpation and nontender General: Yes no CVA tenderness Back/Spine/Pelvis Back: no CVA tenderness Skin General skin exam: no rashes or lesions noted Neuro General: moves all extremities Cranial nerves: Yes Equal, round and reactive pupils present Extrem General: Yes normal to inspection Psych Appearance: grossly normal Assessment & Plan Assessment & Plan (1) Paresthesias: Comment: Do not see any evidence of ongoing zoster with no rash in 15-20 years. Antibodies only useful for determining prior infection. Code(s): R20.2 - Paresthesia of skin Category: Medical Plan: No antivirals necessary. (2) Trigeminal neuralgia of left side of face: Code(s): G50.0 - Trigeminal neuralgia Category: Medical Plan: na Coding Level of Care Code Est Pt Level 3 (93923) Diagnoses Paresthesias R20.2 Trigeminal neuralgia of left side of face G50.0
[2025-05-01 15:05] VITALS: BP 92/60; PULSE 62; O2SAT 98
--- OUTSIDE RECORDS SUMMARY | 2025-05-01 17:11 | XMS_ITS | Encounter Summary ---
Author Organization [facility] Address [address] [place] [address] Care Team Providers Care Credit Or Loans Officer Name Role Phone Dahiana Townsend MD Primary Care Provider [phone] Reason for Referral * Consultation (Routine) - Closed Specialty Diagnoses / Procedures Referred By Mika t Referred To Contact Obstetrics and Gynecology Diagnoses Pelvic pain Dennise Mckeon NP [address] [address] Phone: tel: fax: Gideon Valle MD [address] [place] [phone] Phone: tel: fax: Referral ID Status Reason Start Date Expiration Date V isits Requested Visits Authorized [id number] Closed Specialty Services Required 04/29/2025 04/29/2026 1 1 * Imaging (Routine) - Pending Review Specialty Diagnoses / Procedures Referred By Contac t Referred To Contact Radiology Diagnoses Head lump Procedures US Head Neck Soft Tissue Dennise Mckeon NP [address] [address] Phone: tel: fax: [address] [phone] Phone: tel: Referral ID Status Reason Start Date Expiration Date V isits Requested Visits Authorized [id number] Pending Review 04/29/2025 04/29/2026 1 1 Reason for Visit * Reason Comments Follow-up Encounter Details Date Type Department Care Team (Late st Contact Info) Description 04/29/2025 2:00 PM EDT Office Visit Internal Medicine - [place] [address] [place] [address] Dennise Mckeon NP [address] [place] [address] Memory changes (Primary Dx); Vitamin B12 deficiency; Pelvic pain; Muscle spasm; Head lump Social History Tobacco Use Types Packs/Day Years [...] for your loved ones. For example, child welfare specialist or elderly care for an older [...] Sign Reading Time Taken Comments Blood Pressure 110/60 04/29/2025 2:11 PM EDT Pulse 71 04/29/2025 2:11 PM EDT Temperature 36.9 ??C (98.4 ??F) 04/29/2025 2:11 PM ED T Respiratory Rate - - Oxygen Saturation 98% 04/29/2025 2:11 PM EDT Inhaled Oxygen Concentration - - Weight 68 kg (150 lb) 04/29/2025 2:11 PM EDT Height 165.1 cm (5' 5 ) 04/29/2025 2:11 PM EDT Body Mass Index 24.96 04/29/2025 2:11 PM EDT documented in this encounter Ordered Prescriptions Prescription Sig Dispense Quantity Refills Last Filled Start Date End Date baclofen (LIORESAL) 10 mg tabletIndications: Muscle spasm Take 1 tablet (10 mg total) by mouth at bedtime as needed for muscle spasms. 30 tablet 11 04/29/2025 B complex tabletIndications: Vitamin B12 deficiency Take 1 tablet by mouth 1 (one) time each day. 90 tablet 3 04/29/2025 documented in this encounter Progress Notes * Dennise Mckeon, GABRIELLA - 04/29/2025 2:00 PM EDT CHIEF COMPLAINT: Follow-up IDENTIFIER: Rox Yan is a 59 y.o. old female. History of Present Illness Rox is a 59-year-old female who presents for evaluation of memory issues, back pain, and elevated WBC in her urine. Memory Issues - Memory issues have progressively worsened over the past year. - Takes alpha lipoic acid for neuroprotection. - Memory lapses more pronounced under stress or hunger, with blood sugar around 90. - Recent brain MRI revealed spots. - Concerned about hormonal imbalances, 14 years post-menopause. - Currently taking vitamin B complex. Elevated WBC - Previously diagnosed with elevated WBC, treated with Macrobid, condition improved. - Alpha lipoic acid may be causing odor change in urine. - Consuming cranberry juice and probiotics to prevent yeast infections. Back Pain - Experiencing back pain, initially attributed to kidneys. - Near-dislocation of hip years ago, underwent physical therapy. - Interested in muscle relaxer for back pain. Other Concerns - Long-standing bump on head, occasionally sensitive. - Neurologist referred to infectious disease specialist, ordered blood work to rule out shingles without rash. - Suspected musculoskeletal pain related to degenerative arthritis in C5 and C6. Supplemental information: Currently taking vitamin D and calcium supplements. FAMILY HISTORY Her father has amyloidosis. Her mother has dementia. ROS: See HPI. PAST MEDICAL HISTORY: Patient Active Problem List Diagnosis Date Noted Tendonitis of left hip 10/05/2024 Constipation 06/13/2024 Trigeminal neuralgia 06/13/2024 Bilateral plantar fasciitis 03/08/2018 Lateral epicondylitis of right elbow 11/29/2017 Trigger ring finger of right hand 11/22/2017 Trigger finger, right little finger 11/11/2017 Fibromyalgia 08/19/2017 Foot pain 08/19/2017 Past Surgical History: Procedure Laterality Date APPENDECTOMY PROCEDURE: [place] APPENDECTOMY COLONOSCOPY PROCEDURE: HISTORICAL COLONOSCOPY OTHER SURGICAL HISTORY PROCEDURE: [place] MYOMECTOMY 1-4 MYOMAS 250 GM/< VAGINAL APPR TONSILLECTOMY PROCEDURE: HISTORICAL TONSILLECTOMY WRIST SURGERY Right PROCEDURE: HISTORICAL WRIST SURGERY; COMMENT: [place]agher SOCIAL HISTORY: Social History Tobacco Use Smoking status: Never Smokeless tobacco: Never Substance Use Topics Alcohol use: No FAMILY HISTORY: Family History Problem Relation Name Age of Onset Hyperlipidemia Mother Diabetes Mother Hypertension Mother Hypertension Father Other (Other: psoriasis) Father Other (Other: gout) Father Cervical cancer Sister Breast cancer Sister triple negative Other cancer Maternal Grandmother Esophageal cancer Maternal Grandmother Other (Other: gout) Maternal Grandmother Diabetes Maternal Grandfather Stroke Maternal Grandfather Heart failure Paternal Grandmother Alcohol abuse Paternal Grandmother Lung cancer Paternal Grandfather small cell Hyperlipidemia Brother Hypertension Brother Breast cancer Other cousinx2 Ovarian cancer Neg Hx Colon cancer Neg Hx Family Status Relation Name Status Mother Alive Father Alive Sister Sister MGM MGF PGM PGF Brother Alive Other cousinx2 (Not Specified) Neg Hx (Not Specified) No partnership data on file MEDICATIONS DISCONTINUED/REORDERED: Medications Discontinued During This Encounter Medication Reason VITAMIN B COMPLEX ORAL Reorder ACTIVE MEDICATIONS: Outpatient Medications Marked as Taking for the 04/29/25 encounter (Office Visit) with Dennise Mckeon NP Medication Sig Dispense Refill B complex tablet Take 1 tablet by mouth 1 (one) time each day. 90 tablet 3 calcium carbonate-vitamin D3 500 mg-2.5 mcg (100 unit) tablet,chewable Chew 1 tablet 1 (one) time each day. 90 tablet 3 carBAMazepine (CARBATROL) 300 mg 12 hr capsule Take 1 capsule (300 mg total) by mouth 2 (two) timesa day. cholecalciferol (VITAMIN D-3) 50 mcg (2,000 unit) capsule Take by mouth 3 times daily. fluticasone propionate (FLONASE) 50 mcg/actuation nasal spray 2 Sprays by Each Nare route daily. ginkgo biloba leaf extract 60 mg capsule Take 60 mg by mouth daily. MAGNESIUM CHELATE, MALATE ORAL Take by mouth 2 times daily. OMEGA-3 FATTY ACIDS ORAL Take by mouth 2 times daily. psyllium seed (PSYLLIUM ORAL) Take by mouth. triamcinolone (KENALOG) 0.1 % ointment Apply topically 2 (two) times a day if needed for irritationor rash. 15 g 0 [DISCONTINUED] VITAMIN B COMPLEX ORAL Take by mouth daily. ALLERGIES: Allergies Allergen Reactions Sulfa (Sulfonamide Antibiotics) Anaphylaxis and Hallucinations Other reaction(s): Delirium Other Solanum- Nightshade Vegetables NIGHT SHADES - diarrhea PHYSICAL EXAM: Visit Vitals BP 110/60 (BP Location: Left arm, Patient Position: Sitting, BP Cuff Size: Adult) Pulse 71 Temp 36.9 ??C (98.4 ??F) (Temporal) Ht 1.651 m (65 ) Wt 68 kg (150 lb) SpO2 98% BMI 24.96 kg/m?? OB Status Postmenopausal Smoking Status Never BSA 1.75 m?? Physical Exam Constitutional: Appearance: Normal appearance. Cardiovascular: Rate and Rhythm: Normal rate and regular rhythm. Pulses: Normal pulses. Heart sounds: Normal heart sounds. Pulmonary: Effort: Pulmonary effort is normal. Breath sounds: Normal breath sounds. Neurological: General: No focal deficit present. Mental Status: She is alert and oriented to person, place, and time. Psychiatric: Mood and Affect: Mood normal. Behavior: Behavior normal. LABS/IMAGING: Office Visit on 04/25/2025 Component Date Value Ref Range Status Trichomonas vaginalis 04/25/2025 Negative Negative Final Gardnerella vaginalis 04/25/2025 Negative Negative Final Hilary Species 04/25/2025 Negative Negative Final Appointment on 04/16/2025 Component Date Value Ref Range Status C-Reactive Protein 04/16/2025 <0.29 <=0.50 mg/dL Final TY 04/16/2025 Negative Negative Final Vit D, 25-Hydroxy 04/16/2025 24.6 (L) 30.0 - 80.0 ng/mL Final TSH 04/16/2025 0.92 0.40 - 4.00 mcIU/mL Final Magnesium 04/16/2025 2.1 1.9 - 2.6 mg/dL Final Hemoglobin A1C 04/16/2025 5.3 <6.5 % Final Mean Bld Glu Estim. 04/16/2025 105 mg/dL Final Sodium 04/16/2025 138 133 - 145 mmol/L Final Potassium 04/16/2025 4.0 3.5 - 5.5 mmol/L Final Chloride 04/16/2025 106 96 - 110 mmol/L Final CO2 04/16/2025 24 21 - 32 mmol/L Final Anion Gap 04/16/2025 8 3 - 11 Final Glucose 04/16/2025 93 70 - 100 mg/dL Final BUN 04/16/2025 14 5 - 25 mg/dL Final Creatinine 04/16/2025 0.61 0.50 - 1.10 mg/dL Final eGFR 04/16/2025 104 >=60 mL/min/1.73m2 Final BUN/Creatinine Ratio 04/16/2025 23.0 Final Calcium 04/16/2025 9.3 8.5 - 10.5 mg/dL Final AST (SGOT) 04/16/2025 13 10 - 42 unit/L Final ALT (SGPT) 04/16/2025 24 10 - 60 unit/L Final Alkaline Phosphatase 04/16/2025 122 (H) 42 - 121 unit/L Final Total Protein 04/16/2025 7.0 6.0 - 8.0 g/dL Final Albumin 04/16/2025 3.9 3.2 - 5.0 g/dL Final Total Bilirubin 04/16/2025 0.4 0.0 - 1.4 mg/dL Final Vitamin B-12 04/16/2025 500 250 - 900 pcg/mL Final Iron 04/16/2025 88 40 - 150 mcg/dL Final TIBC 04/16/2025 325 250 - 450 mcg/dL Final Iron Saturation 04/16/2025 27 15 - 50 % Final Folate 04/16/2025 19.2 (H) 2.8 - 17.0 ng/ml Final Ferritin 04/16/2025 100 8 - 252 ng/mL Final Specific Tyler Urine 04/16/2025 1.011 1.003 - 1.030 Final pH, Urine 04/16/2025 7.5 5.0 - 8.0 pH Final Leukocytes, Urine 04/16/2025 Small (A) Negative Final Nitrite, Urine 04/16/2025 Negative Negative Final Protein, Urine 04/16/2025 Negative <=Trace mg/dL Final Glucose, Urine 04/16/2025 Negative Negative mg/dL Final Ketones, Urine 04/16/2025 Negative Negative mg/dL Final Urobilinogen, Urine 04/16/2025 0.2 0.2 - 1.0 mg/dL Final Bilirubin, Urine 04/16/2025 Negative Negative Final Blood, Urine 04/16/2025 Negative Negative Final RBC, Urine 04/16/2025 1.8 0 - 4 /HPF Final WBC, Urine 04/16/2025 4.8 (H) 0 - 4 /HPF Final Squamous Epithelial, Urine 04/16/2025 20 0 - 60 /LPF Final Bacteria, Urine 04/16/2025 Negative Negative /HPF Final Hyaline Casts, Urine 04/16/2025 0.8 0 - 3 /LPF Final WBC 04/16/2025 5.5 4.8 - 10.8 K/mcL Final RBC 04/16/2025 4.40 3.80 - 4.80 M/mcL Final Hemoglobin 04/16/2025 12.9 11.5 - 16.0 g/dL Final Hematocrit 04/16/2025 40.2 35.0 - 47.0 % Final MCV 04/16/2025 91.2 79.0 - 98.0 FL Final MCH 04/16/2025 29.3 27.0 - 32.0 pcg Final MCHC 04/16/2025 32.1 32.0 - 37.0 g/dL Final RDW 04/16/2025 13.3 11.0 - 15.0 % Final Platelets 04/16/2025 284 130 - 400 K/mcL Final MPV 04/16/2025 9.9 7.0 - 11.0 FL Final NRBC 04/16/2025 0.0 <1.0 % Final NRBC Absolute 04/16/2025 0.00 <0.10 K/mcL Final Neutrophils Relative 04/16/2025 63.5 % Final Lymphocytes Relative 04/16/2025 26.1 % Final Monocytes Relative 04/16/2025 7.7 % Final Eosinophils Relative 04/16/2025 1.8 % Final Basophils Relative 04/16/2025 0.5 % Final Immature Granulocytes Relative 04/16/2025 0.4 % Final Neutrophils Absolute 04/16/2025 3.47 1.50 - 7.00 K/mcL Final Lymphocytes Absolute 04/16/2025 1.43 1.00 - 5.00 K/mcL Final Monocytes Absolute 04/16/2025 0.42 0.20 - 1.00 K/mcL Final Eosinophils Absolute 04/16/2025 0.10 0.00 - 0.50 K/mcL Final Basophils Absolute 04/16/2025 0.03 0.00 - 0.20 K/mcL Final Immature Granulocytes Absolute 04/16/2025 0.02 0.00 - 0.03 K/mcL Final Appointment on 02/28/2025 Component Date Value Ref Range Status Rubella IgG Quant 02/28/2025 43.1 >=10.0 I Unit/mL Final Rubella IgG Antibody Interp 02/28/2025 Positive Positive Final Mumps IgG 02/28/2025 Negative (A) Positive Final Mumps IgG Antibody, measured 02/28/2025 <5.0 (L) >=11.0 AU/mL Final Rubeola IgG 02/28/2025 Positive Positive Final Rubeola IgG Antibody, measured 02/28/2025 >300.00 >=16.50 AU/mL Final Results Labs - White Blood Cell Count: Elevated - TSH: Normal - Vitamin B12: Within range - Vitamin D: Slightly low - Kidney Function: Good IMPRESSION: 1. Memory changes 2. Vitamin B12 deficiency 3. Pelvic pain 4. Muscle spasm 5. Head lump PLAN: 1. Memory changes Estrogens, total and fractionated Testosterone free, bioavailable and total Progesterone 2. Vitamin B12 deficiency B complex tablet 3. Pelvic pain Ambulatory referral to Obstetrics / Gynecology Urinalysis with reflex microscopic 4. Muscle spasm baclofen (LIORESAL) 10 mg tablet 5. Head lump US Head Neck Soft Tissue Assessment & Plan 1. Memory issues Possible hormonal imbalances or early dementia. - Check hormone levels (estrogen, testosterone, progesterone). - Prescribed vitamin B12 supplement. - Further neurology testing if symptoms persist. 2. Pelvic pain, elevated WBC Previously treated with Macrobid for UTI. - Repeat urine test for UTI. - Recent bacterial vaginitis swab test results negative. - Drinking cranberry juice and taking probiotics to prevent yeast infections. - Referred to TRANSMISSION TESTER. 3. Muscle spasm back pain Prescribed baclofen for back pain, to be taken at bedtime as needed. - Advised to avoid driving due to drowsiness. 4. Head bump Ordered head ultrasound. - Bump present for long time, sometimes sensitive. Patient scheduled to follow-up with PCP in 5 months. Advised the patient to call me if any problems. Patient understands the plan. Patient is in agreement with the plan. I have obtained verbal consent from Rox Yan prior to the recording. I have advised Rox Yan that she may refuse the recording and require the recording to be turned off at any time during this encounter. Dennise Mckeon NP on 04/29/2025 at 4:44 PM EDT documented in this encounter Plan of Treatment Upcoming Encounters Date Type Department Care Team (Late st Contact Info) Description 05/14/2025 8:[address] [facility] Ultrasound [address] [place] [phone] 06/04/2025 2:45 PM EDT Office Visit Orthopedic Surgery [facility] 250 175 [facility] [address] [place] [phone] Bon Trujillo DPM 175 [facility] [address] [place] [address] 10/14/2025 8:15 AM EST Office Visit Internal Medicine [facility] 175 [facility] 200 [place] [phone] Dahiana Townsend MD 175 [facility] 200 [place] [phone] Pending Results Name Type Priority Associated Diagnoses Date /Time Estrogens, total and fractionated Lab Routine Memory changes 04/29/2025 3:00 PM EDT Scheduled Orders Name Type Priority Associated Diagnoses Orde r Schedule US Head Neck Soft Tissue Imaging Routine Head lump Ordered: 04/29/2025 Estrogens, total and fractionated Lab Routine Memory changes 1 Occurrences starting 04/29/2025 until 04/29/2026 Scheduled Referrals Name Type Priority Associated Diagnoses Order Schedule Ambulatory referral to Obstetrics / Gynecology Outpatient Referral Routine Pelvic pain 1 Occurrences starting 04/29/2025 until 04/29/2026 documented as of this encounter Results * Progesterone (04/29/2025 3:00 PM EDT) Progesterone <0.2 ng/mL LAB CHEMISTRY METHOD 04/29/2025 7:20 PM EDT [facility] Comment: PROGESTERONE REFERENCE RANGES (NG/ML) FEMALES NORMALLY MENSTRUATING: FOLLICULAR PHASE 0.2 - ??1.7 MIDCYCLE PEAK ?2.3 - ??242 LUTEAL PHASE ? 8.8 - 21.6 POSTMENOPAUSAL ?<0.2 - ??0.9 : FIRST TRIMESTER ??11.4 - 41.0 SECOND TRIMESTER 13.5 - ??156 THIRD TRIMESTER ??51.4 - >200 This assay should not be used in patients taking DHEA supplements as part of IVF treatment. ??A metabolite (DHEA-S) of this supplement has been shown to cross- react with the progesterone assay and cause falsely elevated results. Blood Venous blood specimen / Unknown Venipuncture / Unknown 04/29/2025 3:00 PM EDT 04/29/2025 3:00 PM EDT Dennise Mckeon NP LAB BLOOD ORDERABLES Final Resul t [facility] [address] [place] [address], * Testosterone free, bioavailable and total (04/29/2025 3:00 PM EDT) [facility] Signature Testosterone 7 7 - 46 ng/dL LAB CHEMISTRY METHOD 04/29/2025 7:42 PM EDT [facility] Testosterone, Free 0.1 0.0 - 0.5 ng/dL LAB CHEMISTRY METHOD 04/29/2025 7:42 PM EDT [facility] Testosterone, Bioavailable 2 1 - 9 ng/dL LAB CHEMISTRY METHOD 04/29/2025 7:42 PM EDT [facility] Sex Hormone Binding 108.8 See Comment nmol/L LAB CHEMISTRY METHOD 04/29/2025 7:42 PM EDT [facility] Comment: FEMALES: ??pre-menopausal ?? 10.8 - >180 ??post-menopausal ??23.2 - 159.1 MALES: ?? 21-49 years ? 14.6 - 94.6 ?? 50-89 years ? 21.6 - 113.1 CHILDREN: ??No established reference range Over the counter supplements containing high doses of biotin may interfere with this assay. ??If interference is suspected, patients should be retested after refraining from biotin supplements for 72 hours. Albumin 4.0 3.2 - 5.0 g/dL LAB CHEMISTRY METHOD 04/29/2025 7:42 PM EDT [facility] Blood Venous blood specimen / Unknown Venipuncture / Unknown 04/29/2025 3:00 PM EDT 04/29/2025 3:00 PM EDT us Dennise Mckeon NP LAB BLOOD ORDERABLES Final Resul t [facility] [address] [place] [address], documented in this encounter Visit Diagnoses Diagnosis Memory changes- Primary Vitamin B12 deficiency Other B-complex deficiencies Pelvic pain Muscle spasm Spasm of muscle Head lump documented in this encounter Discontinued Medications Medication Sig Discontinue Reason Start Date End Da te VITAMIN B COMPLEX ORAL Take by mouth daily. Reorder 04/29/2025 documented as of this encounter Additional Health Concerns Assessment Noted Time PHQ-9 Depression Total Score: 4 10/07/20 24 10:52 PM EST documented as of this encounter Care Teams Credit Or Loans Officer Relationship Specialty Start Date End Date Dahiana Townsend MD [address] [phone] PCP - General Internal Medicine 06/05/21 documented as of this encounter
== END 2025-05-01 15:40 | disposition home or self-care (01) ==
LOC: HO.HID 14:57
PROVIDERS: PCP Internal Medicine; Visit Provider Internal Medicine
DX: R20.2 Paresthesia of skin (principal); G50.0 Trigeminal neuralgia
CPT/HCPCS: 99213

== ENCOUNTER → 2025-05-01 14:57 | Outpatient (BNVA) | payer OTHER, SELFPAY | PROVIDERS: PCP Internal Medicine; Visit Provider Internal Medicine | DX: R20.2 Paresthesia of skin (principal); G50.0 Trigeminal neuralgia | CPT/HCPCS: 99212 ==

== ENCOUNTER 2025-06-21 09:39 | Outpatient (AMB) | payer OTHER, SELFPAY ==
--- OUTSIDE RECORDS SUMMARY | 2025-06-21 09:47 | XMS_ITS | Encounter Summary ---
Author Organization [facility] Address [address] [place] [address] Care Team Providers Care Music Composition Teacher Name Role Phone Dahiana Townsend MD Primary Care Provider [phone] Reason for Visit * Reason Onset Date Comments Request For Order(s) 06/14/2025 MRI/ Head/w ith contrast Encounter Details Date Type Department Care Team ([facility] st Contact Info) Description 06/14/2025 Telephone Internal Medicine - [place] 175 [facility] [address] [place] [address] Dahiana Townsend MD 175 [facility] 200 [place] [address] Request For Order(s) (MRI/ Head/with contrast) Social History Tobacco Use Types Packs/Day Years [...] your loved ones. For example, early childhood director or elderly care for an older adult? [...] as of this encounter Progress Notes * Ashlyn Kern - 06/14/2025 10:28 AM EDT MRI head ordered by Dr. Townsend However Dr. Tan informed patient This should be entered as MRI/with contrast Please inform Dr. Townsend a new order must Be placed. Contact patient with new date time of appt MRI with contrast - Head. documented in this encounter Plan of Treatment Upcoming Encounters Date Type Department Care Team (Late st Contact Info) Description 06/24/2025 3:45 PM EDT Office Visit Orthopedic Surgery - [place] [address] [phone] Bon Trujillo, DPM [address] [address] 06/26/2025 5:30 PM EDT Treatment [facility] [address] [phone] Marion Ying, PT 06/28/2025 8:00 AM EDT Treatment [facility] [address] [phone] Marion Ying, PT 07/01/2025 5:00 PM EDT Treatment [address] [phone] Gary Tillman, GUEST SERVICES ATTENDANT 07/09/2025 8:00 AM EDT Treatment [facility] [address] [phone] Marion Ying, PT 07/11/2025 7:00 AM EDT Treatment [facility] [address] [phone] Gumaro Hickman, GUEST SERVICES ATTENDANT 07/18/2025 7:30 AM EDT Treatment [facility] [address] [phone] Marion Ying, PT 10/14/2025 8:15 AM EST Office Visit Internal Medicine - [place] 175 [facility] 200 [place] [address] Dahiana Townsend MD 175 [facility] 200 [place] [phone] documented as of this encounter Visit Diagnoses Not on filedocumented in this encounter Additional Health Concerns Assessment Noted Time PHQ-9 Depression Total Score: 4 10/07/20 24 10:52 PM EST documented as of this encounter Care Teams Music Composition Teacher Relationship Specialty Start Date End Date Dahiana Townsend MD 175 [facility] 200 [place] [phone] PCP - General Internal Medicine 06/05/21 documented as of this encounter
--- OUTSIDE RECORDS SUMMARY | 2025-06-21 09:47 | XMS_ITS | Clinical Summary ---
Author Organization [facility] Address [address] [place] [id number] Phone Care Team Providers Care Fsr Name Role Phone Dahiana Townsend MD Primary Care Provider Allergies Active Allergy Reactions Criticality Noted Date Comments Sulfa (Sulfonamide Antibiotics) Anaphylaxis High 05/30/2017 Other reaction(s): hallucinations Other reaction(s): Delirium Medications gabapentin (NEURONTIN) 100 MG capsule 09/20/2023 Active MAGNESIUM MALATE, CHELATE ORAL Take by mouth. Active psyllium seed (PSYLLIUM ORAL) Take by mouth. Active OMEGA-3 FATTY ACIDS ORAL Take by mouth. Active CALCIUM ORAL Take 1 capsule by mouth daily. Active vitamin B complex (B COMPLEX VITAMINS ORAL) Take by mouth daily. Active cholecalciferol (VITAMIN D3) 2,000 unit capsule Take by mouth. Active ginkgo biloba leaf extract 60 mg Cap Take 60 mg by mouth daily. Active Social History Tobacco Use Types Packs/Day Years Used Date Smoking Tobacco: Never Smokeless Tobacco: Never Tobacco Cessation:Counseling Given: Not Answered Alcohol Use Standard Drinks/Week Comments Yes 0 [...] Orientation Straight 09/22/2023 1: 23 PM EDT Last Filed Vital Signs Vital Sign Reading Time Taken Comments Blood Pressure - - Pulse - - Temperature - - Respiratory Rate - - Oxygen Saturation - - Inhaled Oxygen Concentration - - Weight 70.3 kg (155 lb) 10/03/2023 8:45 AM EST Height 165.1 cm (5' 5 ) 10/03/2023 8:45 AM EST Body Mass Index 25.79 10/03/2023 8:45 AM EST Plan of Treatment Health Maintenance Due Date Last Done Comments LIPID PANEL 1966 DEPRESSION SCREENING 1978 HEPATITIS C SCREENING 1984 HIV ONE-TIME SCREENING (18-6 5 YEARS) 1984 PAP SMEAR 1987 SCREENING FOR DIABETES 2001 MAMMOGRAM 2006 COLOGUARD 2011 COLONOSCOPY 2011 COLORECTAL CANCER SCREENING 2011 FIT TEST 2011 FOBT 2011 SIGMOIDOSCOPY 2011 VIRTUAL COLONOSCOPY 2011 PNEUMOCOCCAL VACCINES (50+ y ears) (1 of 1 - PCV) 2016 ZOSTER VACCINES (1 of 2) 2016 COVID-19 VACCINE (2023-2 5 season) 2024 Adult Td,Tdap Booster 09/14/2031 09/14/2021 SMOKING STATUS SCREENING (On ce After 26 Yrs) Completed 10/03/2023 HEPATITIS A VACCINES Aged Out No long er eligible based on patient's age to complete this topic HIB VACCINES Aged Out No longer eligi ble based on patient's age to complete this topic MENINGOCOCCAL VACCINES (ACWY) Aged Out No longer eligible based on patient's age to complete this topic MENINGOCOCCAL VACCINES (B) Aged Out N o longer eligible based on patient's age to complete this topic Medical Devices Not on file Insurance [employer] NON NSPG PCP [employer]VER [employer] CONNE[employer] NON NSPG PCP [employer] [place] NON NSP[place] PCP S[employer]VER [employer] CONNE[employer]CARE [employer] NON NSPG PCP SILVER [employer] CONNE[employer]CARE [employer] NON NSPG PCP S[employer]VER [employer] CONNE[employer]ARE [employer] NON NSPG PCP S[employer] CONNECTORCARE Member Subscriber Plan / Payer (Ef fective 2023-) Name:Rox Yan Relation to Subscriber:Self Name:Rox Yan Payer ID:[id number] Type:O Address: [address] WE[employer] NON NSPG PCP [employer] CONNE[employer]CARE [employer] NON NSPG PCP SILVER CLARITY CONNECTORCARE [facility] NON NSPG PCP SILVER CLARITY CONNECTORCARE [place] NON NSPG PCP SILVER CLARITY CONNECTORCARE [employer] NON NSPG PCP SILVER [employer]ARITY CONNECTORCARE [address] NON NSPG [facility]CP [facility] Care Teams Fsr Relationship Specialty Start Date End Date Dahiana Townsend MD [address] [phone] PCP - General Internal Medicine 09/22/23 Additional Source Comments The information contained in this document represents components of the legal health record. It is not the complete legal health record.[facility]
--- NOTE | 2025-06-21 09:56 | A.OFFVIS_ITS ---
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 Symptoms began six months ago, with pain in the back of the head and cheek, wo rsening over time. The pain is described as a tingling sensation, severe enough to prevent resting her head against surfaces, rated 9 out of 10 at its worst. Carbamazepine has been prescribed, but its efficacy is uncertain due to persistent facial pain. Increasing the dosage led to tremors, necessitating a reduction. Baclofen causes excessive drowsiness at higher doses, limiting her to a lower d ose. The patient is scheduled for physical therapy for her neck and has had trigger point injections without significant relief. Chiropractic adjustments and acupuncture have provided some relief previously. Pain Description - Onset: Approximately six months ago - Quality: Tingling pain sensation - Primary Location: Back of the head, cheek, and top of the head - Radiation: Pain extends to the crown and back of the head - Exacerbating Factors: Lying on the back of the head - Relieving Factors: Sleeping on the right side - Interference: Prevents resting head against surfaces, impacts sleep and daily activities Physical Exam - Appears afebrile. - Alert and oriented. - Mood and affect appropriate. - Follows and participates in conversation appropriately. - Respiratory effort is unlabored. - Able to transition from sit to stand unassisted. - Ambulates with bilaterally normal heel strike and toe off. - Able to stand and walk on toes and heels. Pain Management - Affect: Pain impacts sleep and daily activities - Analgesia: Current medications include carbamazepine and baclofen; pain rated 9/10 at worst - Adverse Effects: Tremors from increased carbamazepine; drowsiness from baclofen - Activities of Daily Living: Pain prevents resting head against surfaces, impacts work and sleep - Aberrant Drug Related Behaviors: None reported Procedure - Occipital nerve blocks: Informed consent obtained; patient in sitting position; occipital area prepped with chloraprep; 25 gauge needle used to inject ropivacaine 0.5%, 3 mL, in a fan-like motion to cover greater and lesser occipital nerves bilaterally; patient tolerated procedure well with no blood loss. 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 - Scheduled physical therapy for neck pain management. - Discussed potential for occipital nerve stimulation for long-term management, pending insurance coverage. - Recommended continuation of current medications with monitoring for adverse effects. - Suggested exploring chiropractic adjustments and acupuncture as adjunctive therapies. Patient was informed and verbally consented to the use of an ambient scribe for clinic note documentation during this visit. Discussion Notes I discussed with the patient the administration of occipital nerve blocks for immediate pain relief and the potential for occipital nerve stimulation for long-term management, noting the variability in insurance coverage for the latter. We reviewed the current medication regimen, emphasizing the need to monitor for adverse effects. I also suggested considering chiropractic adjustments and acupuncture as adjunctive therapies. Follow-up will be based on the patient's response to today's intervention. Patient Instructions - Follow up with physical therapy as scheduled. - Monitor for any adverse effects from medications and report them. - Consider chiropractic adjustments and acupuncture for additional relief. - Return for follow-up based on response to today's treatment. Coding Level of Care Code New Pt Level 4 (26994) Diagnoses Occipital neuralgia M54.81
[2025-06-21 09:57] VITALS: BP 127/66; PULSE 58; RESP 18; O2SAT 98; BMI 24.8
== END 2025-06-21 10:22 | disposition home or self-care (01) ==
LOC: HO.PMC 09:40
PROVIDERS: PCP Internal Medicine; Visit Provider Internal Medicine
DX: M54.81 Occipital neuralgia (principal)
CPT/HCPCS: 99204

== ENCOUNTER → 2025-06-21 09:39 | Outpatient (BNVA) | payer OTHER, SELFPAY | PROVIDERS: PCP Internal Medicine; Visit Provider Internal Medicine | DX: M54.81 Occipital neuralgia (principal) | CPT/HCPCS: 99202 ==

== ENCOUNTER 2025-07-17 09:17 | Outpatient (AMB) | payer OTHER, SELFPAY ==
--- OUTSIDE RECORDS SUMMARY | 2022-12-11 01:00 | XMS_ITS | Encounter Summary ---
Author Organization [facility] Address [address] [address] Phone Care Team Providers Care Press Bucker Name Role Phone Unavailable Primary Care Provider Unavailabl e Encounter Details Date Type Department Care Team (Late st Contact Info) Description 12/11/2022 Hospital Encounter [facility] [address] [place] [phone] Clint Graham MD [address] [place] [phone] [email or web address] Social History Tobacco Use Types Packs/Day Years Used Date Smoking Tobacco: Never Smokeless Tobacco: Never Alcohol Use Standard Drinks/Week Comments Yes 0 (1 standard drink = 0.6 oz pur e alcohol) once a year Education Answer Date Recorded Are you interested in more education? Not on yao e 09/27/2023 Are you concerned about learning? Not on file 09/27/2023 No 09/27/2023 No 09/27/2023 Digital Access Answer Date Recorded No 09/27/2023 No 09/27/2023 Reliable internet access at home? Not on file 09/27/2023 Device with a working camera? Not on file Comments Unknown Sex and Gender Information Value Date Recorded Sex Assigned at Female 09/22/2023 1:23 PM EDT Legal Sex Female 1:17 PM EDT Gender Identity Female 09/22/2023 1:23 PM EDT Sexual Orientation Straight 09/22/2023 1: 23 PM EDT documented as of this encounter Plan of Treatment Not on file documented as of this encounter Procedures Procedure Name Priority Date/Time Associated Diagnosis Comments XR SPINE OUTSIDE (NO INTERPRETATION) Routine 12/11/2022 12:00 AM EST documented in this encounter Results * XR SPINE OUTSIDE(NO INTERPRETATION) (12/11/2022 12:00 AM EST) Narrative [facility] INTER[facility]AC[facility] - 10/03/2023 4:11 PM EST This study is for PACS storage only and not for interpretation. us Clint Graham MD IMG OUTSIDE IMAGING W/OUT IN TERPRETATION Final Result [facility] documented in this encounter Visit Diagnoses Not on filedocumented in this encounter Additional Source Comments The information contained in this document represents components of the legal health record. It is not the complete legal health record.[facility]
--- OUTSIDE RECORDS SUMMARY | 2023-09-01 | XMS_ITS | Encounter Summary ---
Author Organization [facility] Address [address] [address] Phone Care Team Providers Care Auction Assistant Name Role Phone Dahiana Townsend MD Primary Care Provider [phone] Encounter Details Date Type Department Care Team (Late st Contact Info) Description 09/01/2023 Hospital Encounter [facility] [address] [place] [phone] Clint Graham MD [address] [place] [phone] [email or web address] [place] [facility] Social History Tobacco Use Types Packs/Day [...] on filedocumented in this encounter Care Teams Auction Assistant Relationship Specialty Start Date End Date Dahiana Townsend MD 175 [facility] [address] [place] [phone] PCP - General 09/01/23 09/21/23 documented as of this encounter Additional Source Comments The information contained in this document represents components of the legal health record. It is not the complete legal health record.[facility]
--- OUTSIDE RECORDS SUMMARY | 2023-09-01 00:05 | XMS_ITS | Encounter Summary ---
Author Organization [facility] Address [address] [place] [address] Phone Care Team Providers Care Bowling Ball Marker Name Role Phone Dahiana Townsend MD Primary Care Provider Encounter Details Date Type Department Care Team (Late st Contact Info) Description 09/01/2023 12:05 AM EDT Hospital Encounter [facility] [address] [place] [phone] Clint Graham MD [address] [place] [phone] [email or web address] Social History Tobacco Use Types [...] on filedocumented in this encounter Care Teams Bowling Ball Marker Relationship Specialty Start Date End Date Dahiana Townsend MD 175 [facility] 200 [place] [phone] PCP - General 09/01/23 09/21/23 documented as of this encounter Additional Source Comments The information contained in this document represents components of the legal health record. It is not the complete legal health record.[facility]
--- OUTSIDE RECORDS SUMMARY | 2023-09-01 00:10 | XMS_ITS | Encounter Summary ---
Author Organization [facility] Address [address] [place] [id number] Phone Care Team Providers Care Medical Records Secretary Name Role Phone Dahiana Townsend MD Primary Care Provider [phone] Encounter Details Date Type Department Care Team (Late st Contact Info) Description 09/01/2023 12:10 AM EDT Hospital Encounter [facility] [address] [place] [phone] Clint Graham MD [address] [place] [phone] [email or web address] Social History Tobacco Use Types Packs/Day Years [...] on filedocumented in this encounter Care Teams Medical Records Secretary Relationship Specialty Start Date End Date Dahiana Townsend MD [address] [facility] [address] [place] [address] PCP - General 09/01/23 09/21/23 documented as of this encounter Additional Source Comments The information contained in this document represents components of the legal health record. It is not the complete legal health record.[facility]
--- NOTE | 2025-07-17 09:19 | MHC.OFFVIS ---
Vital Signs 07/17/25 09:21 Height 5 ft 5 in Weight 144 lb BMI 24.0 BP 137/63 Blood Pressure Location Lt brachial Position Sitting Respiration 15 Pulse 59 Pulse Source Pulse Oximeter Pulse Oximetry (%) 99 Oxygen Delivery Method Room Air Intake Visit Reasons: Discuss Relief - S/P Injection 06/21/25 Trial Manager Required: No Allergies Sulfa (Sulfonamide Antibiotics) Allergy (Severe, Verified 07/17/25 09:22) Anaphylaxis Medication List - Last Reconciled 07/17/25 by Kristel Pearce LPN alpha lipoic acid 300 mg PO DAILY ascorbic acid (vitamin C) 500 mg PO DAILY baclofen 5 - 10 mg PO BEDTIME PRN Ca carb-D3-mag ev-fdg-tpnf-Zn 300 mg-20 mcg- 25 mg-0.5 mg 1 tab PO DAILY carbamazepine ER 200 mg PO BID 30 days omega 5-lpe-ujm-fish oil 300-1,000 mg (Fish Oil) 1 cap PO DAILY HPI HPI Discuss Relief - S/P Injection 06/21/25: Details: History of Present Illness The patient is a 60-year-old female presenting with cervical radicular pain and occipital neuralgia. She received occipital nerve blocks last month, which provided relief for four days before the pain returned. The pain is described as originating from the epicranial aponeurosis and radiating to the back of the head, exacerbated by hair movement and certain head positions. The patient has been undergoing physical therapy focusing on neck and upper back exercises due to kyphosis, which causes her neck to protrude forward. She reports that certain physical therapy maneuvers have exacerbated her symptoms, causing flare-ups lasting several days. She has a history of trigger point injections over two years ago, which provided minimal relief. The patient underwent a brain MRI five days after receiving the nerve blocks, which showed minimal findings. She was concerned about the potential distortion of MRI results due to recent injections, but it was clarified that the injections would not affect the imaging. The patient has been prescribed carbamazepine and gabapentin for pain management, but she reports significant side effects, including memory issues and excessive sedation, leading her to reduce the dosage. She expresses concern about the effectiveness of these medications in managing her symptoms. Pain Description - Onset and Timing: Pain relief from occipital nerve blocks lasted four days before returning. - Quality and Character: Pain originates from the epicranial aponeurosis, radiating to the back of the head. - Primary Location: Epicranial aponeurosis, radiating to the occipital region. - Exacerbating Factors: Hair movement, certain head positions, and specific physical therapy maneuvers. - Relieving Factors: Initial relief from occipital nerve blocks. - Interference with Activities: Pain affects hair care and physical activities. Physical Exam Results - Imaging: Brain MRI showed minimal findings. Pain Management - Affect: Pain impacts daily activities and psychological wellbeing. - Analgesia: Currently using carbamazepine and gabapentin with limited effectiveness and significant side effects. - Adverse Effects: Memory issues and excessive sedation from medications. - Activities of Daily Living: Pain interferes with hair care and physical activities. - Aberrant Drug Related Behaviors: None reported. 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 Physical Exam Vital Signs: Last Vital Signs Pulse 59 07/17/25 09:21 Resp 15 07/17/25 09:21 BP 137/63 07/17/25 09:21 Pulse Ox 99 07/17/25 09:21 Oxygen Delivery Method Room Air 07/17/25 09:21 BMI result Body Mass Index 24.0 Assessment & Plan Assessment & Plan (1) Occipital neuralgia: Code(s): M54.81 - Occipital neuralgia Category: Medical (2) Cervical spondylosis: Code(s): M47.812 - Spondylosis without myelopathy or radiculopathy, cervical region Category: Medical (3) Cervical radiculopathy: Code(s): M54.12 - Radiculopathy, cervical region Category: Medical Plan Plan Patient was informed and verbally consented to the use of an ambient scribe for clinic note documentation during this visit. 1. Occipital Neuralgia - Plan to manage occipital neuralgia as a composite downstream effect of cervical disc degeneration and radiculitis. May benefit from high cervical medial branch blocks and radiofrequency ablation in the future. - Discussed the role of physical therapy and posture correction in managing symptoms. 2. Cervical Radicular Pain - Plan includes a left presagittal interlaminar C6-7 epidural steroid injection as a next step in management. - Discussed the importance of addressing kyphosis and neck degeneration through physical therapy. 3. Degenerative Disc Disease - Management includes considering epidural steroid injections to manage inflammation and pain. - Emphasized the importance of mechanical and postural interventions over medication for long-term management. 4. Kyphosis - Plan involves continuing physical therapy focusing on strengthening and posture correction. - Discussed the role of posture correction in alleviating symptoms related to kyphosis. Discussion Notes I discussed with the patient the potential benefits and risks of a cervical epidural steroid injection for managing cervical radicular pain and occipital neuralgia. We reviewed the importance of addressing kyphosis and neck degeneration through physical therapy and posture correction. The patient was informed about the temporary nature of relief from injections and the need for ongoing mechanical and postural interventions. Patient Instructions - Continue physical therapy focusing on neck and upper back exercises. - Consider scheduling an epidural steroid injection if pain persists. - Monitor for any side effects from medications and report them to your neurologist. Coding Level of Care Code Est Pt Level 4 (74877) Diagnoses Occipital neuralgia M54.81 Cervical spondylosis M47.812 Cervical radiculopathy M54.12
[2025-07-17 09:21] VITALS: BP 137/63; PULSE 59; RESP 15; O2SAT 99; BMI 24.0
--- OUTSIDE RECORDS SUMMARY | 2025-07-17 09:49 | XMS_ITS | Encounter Summary ---
Author Organization [facility] Address [address] [place] [address] Care Team Providers Care Leadite Man Name Role Phone Valeria Kidd DO Primary Care Pro vider Unavailable Dahiana Townsend MD Primary Care Provider [phone] Encounter Details Date Type Department Care Team Description 09/13/2019 Hospital Medical Records [address] [place] [address] Rox Giron MD [address] [place] [id number] Social History Tobacco Use Types Packs/Day Years Used Date Smoking Tobacco: Never Smokeless Tobacco: Never Alcohol Use Standard Drinks/Week Comments No 0 (1 standard drink = 0.6 oz pur e alcohol) Sex Assigned at Date Recorded Female 06/06/2021 10:34 AM EDT Job Start Date Occupation Industry Not on file Not on file Not on file documented as of this encounter Plan of Treatment Not on file documented as of this encounter Visit Diagnoses Not on filedocumented in this encounter Care Teams Leadite Man Relationship Specialty Start Date End Date Valeria Kidd DO PCP - General Internal Medicine 08/19/17 06/04/21 Dahiana Townsend MD PCP - General Internal Medicine 06/05/21 documented as of this encounter
--- OUTSIDE RECORDS SUMMARY | 2025-07-17 09:49 | XMS_ITS | Encounter Summary ---
Author Organization [facility] Address [address] [place] [address] Care Team Providers Care Datastage Consultant Name Role Phone Valeria Kidd DO Primary Care Pro vider Dahiana Mendoza MD Primary Care Provider [phone] Encounter Details Date Type Department Care Team Description 08/01/2019 Orders Only Medical Records [address] [place] [address] Ge Levine MD [address] [place] [address] Social History Tobacco Use Types Packs/Day Years [...] Procedure Name Priority Date/Time Associated Diagnosis Comments OUTSIDE PLAIN FILM Routine 08/01/2019 documented in this encounter Results * OUTSIDE PLAIN FILM (08/01/2019) Ge Levine MD RADIOLOGY documented in this encounter Visit Diagnoses Not on filedocumented in this encounter Care Teams Datastage Consultant Relationship Specialty Start Date End Date Valeria Kidd DO PCP - General Internal Medicine 08/19/17 06/04/21 Dahiana Townsend MD PCP - General Internal Medicine 06/05/21 documented as of this encounter
--- OUTSIDE RECORDS SUMMARY | 2025-07-17 09:49 | XMS_ITS | Encounter Summary ---
Author Organization [facility] Address [address] [place] [address] Care Team Providers Care Asphalt Paver Name Role Phone Valeria Kidd DO Primary Care Pro vider Dahiana Mendoza MD Primary Care Provider [phone] Reason for Visit * Reason Onset Date Comments Medication 10/10/2018 Encounter Details Date Type Department Care Team Description 10/10/2018 Telephone Adult Medicine [address] [address] Clover Luis PA-C Medication Social History Tobacco Use Types Packs/Day Years Used Date Smoking Tobacco: Never Smokeless Tobacco: Never Alcohol Use Standard Drinks/Week Comments No 0 (1 standard drink = 0.6 oz pur e alcohol) Sex Assigned at Date Recorded Female 06/06/2021 10:34 AM EDT Job Start Date Occupation Industry Not on file Not on file Not on file documented as of this encounter Miscellaneous Notes * Telephone Encounter - Linn Narvaez M.A. - 10/10/2018 4:55 PM EST Script given to patient today by Nicole George M.A. * Telephone Encounter - Clover Luis PA-C - 10/10/2018 4:18 PM EST ordered * Telephone Encounter - Nicole George M.A. - 10/10/2018 4:05 PM EST Will you order for patient please review and advise Rx for 3 tabs pending your approval. * Telephone Encounter - Pearl Alcantara - 10/10/2018 3:58 PM EST Who is calling? The patient Name of the medication Alprazolam 0.5 What is the specific problem or interaction? Patient states that she is having a MRA on Tuesday and discussed in last office visit with Clover that she would need this medication in order to have this done If the patient is having a problem with taking the med - how long has the problem been going on? N/A documented in this encounter Plan of Treatment Not on file documented as of this encounter Visit Diagnoses Not on filedocumented in this encounter Care Teams Asphalt Paver Relationship Specialty Start Date End Date Valeria Kidd DO PCP - General Internal Medicine 08/19/17 06/04/21 Dahiana Townsend MD PCP - General Internal Medicine 06/05/21 documented as of this encounter
--- OUTSIDE RECORDS SUMMARY | 2025-07-17 09:49 | XMS_ITS | Encounter Summary ---
Author Organization [facility] Address [address] [place] [address] Care Team Providers Care Career Guidance Technician Name Role Phone Dahiana Townsend MD Primary Care Provider [phone] Encounter Details Date Type Department Care Team Description 11/07/2023 Healthcare Or Medical Report Medical Records [address] [place] [id number] Lidia Ramirez, PA Social History Tobacco Use Types Packs/Day Years [...] on filedocumented in this encounter Care Teams Career Guidance Technician Relationship Specialty Start Date End Date Dahiana Townsend MD PCP - General Internal Medicine 06/05/21 documented as of this encounter
--- OUTSIDE RECORDS SUMMARY | 2025-07-17 09:49 | XMS_ITS | Encounter Summary ---
Author Organization [facility] Address [address] [place] [address] Care Team Providers Care Double Head Machine Operator Name Role Phone Dahiana Townsend MD Primary Care Provider [phone] Encounter Details Date Type Department Care Team Description 04/21/2024 Orders Only Medical Records [address] [place] [id number] [place] [address] Social History Tobacco Use Types Packs/Day Years [...] Name Priority Date/Time Associated Diagnosis Comments OUTSIDE MRI/MRA Routine 09/01/2023 documented in this encounter Results * OUTSIDE MRI/MRA (09/01/2023) [facility] RADIOLOGY documented in this encounter Visit Diagnoses Not on filedocumented in this encounter Care Teams Double Head Machine Operator Relationship Specialty Start Date End Date Dahiana Townsend MD PCP - General Internal Medicine 06/05/21 documented as of this encounter
--- OUTSIDE RECORDS SUMMARY | 2025-07-17 09:49 | XMS_ITS | Encounter Summary ---
Author Organization [facility] Address [address] [place] [address] Care Team Providers Care Infection Control Coordinator Name Role Phone Dahiana Townsend MD Primary Care Provider [phone] Encounter Details Date Type Department Care Team Description 09/22/2022 Pt. Non Urgent Medical Question Internal Medicine - [address], [address] [place] [address] Dahiana Townsend MD [address] [place] [phone] Social History Tobacco Use Types Packs/Day Years Used Date Smoking Tobacco: Never Smokeless Tobacco: Never Alcohol Use Standard Drinks/Week Comments No 0 (1 standard drink = 0.6 oz pur e alcohol) Sex Assigned at Date Recorded Female 06/06/2021 10:34 AM EDT Job Start Date Occupation Industry Not on file Not on file Not on file COVID-19 Exposure Response Date Recorded In the last 10 days, have ceasar u been in contact with someone who was confirmed or suspected to have Coronavirus/COVID-19? No / Unsure 09/24/2022 8:54 AM EDT documented as of this encounter Plan of Treatment Not on file documented as of this encounter Visit Diagnoses Not on filedocumented in this encounter Care Teams Infection Control Coordinator Relationship Specialty Start Date End Date Dahiana Townsend MD PCP - General Internal Medicine 06/05/21 documented as of this encounter
--- OUTSIDE RECORDS SUMMARY | 2025-07-17 09:49 | XMS_ITS | Encounter Summary ---
Author Organization [facility] Address [address] [place] [address] Care Team Providers Care Tractor Operator Battery Name Role Phone Dahiana Townsend MD Primary Care Provider [phone] Encounter Details Date Type Department Care Team Description 12/05/2023 Furnace Keeper Report Medical Records [address] [place] [id number] Lidia Ramirez, PA Social History Tobacco Use [...] on filedocumented in this encounter Care Teams Tractor Operator Battery Relationship Specialty Start Date End Date Dahiana Townsend MD PCP - General Internal Medicine 06/05/21 documented as of this encounter
--- OUTSIDE RECORDS SUMMARY | 2025-07-17 09:49 | XMS_ITS | Clinical Summary ---
Author Organization [facility] Address [address] [place] [phone] Phone Care Team Providers Care Activities Attendant Name Role Phone Dahiana Townsend MD Primary [...] NON NSPG PCP SILVER CLARITY CONNECTORCARE [place] WELLSENSE NON NSPG PCP SILVER CLARITY CONNECTORCARE WELLSENSE NON NSPG PCP SILVER CLARITY CONNECTORCARE WELLSENSE NON NSPG PCP SILVER CLARITY CONNECTORCARE WELLSENSE NON NSPG PCP SILVER CLARITY CONNECTORCARE Member Subscriber Plan / Payer (Ef fective 2023-) Name:Rox Yan Relation to Subscriber:Self Name:Rox Yan Payer ID:[id number] Type:O Address: [address] WELLSENSE NON NSPG PCP SILVER CLARITY CONNECTORCARE WELLSENSE NON NSPG PCP SILVER CLARITY CONNECTORCARE [facility] NON NSPG PCP SILVER CLARITY CONNECTORCARE ENSE NON NSPG PCP SILVER CLARITY CONNECTORCARE COLDWATERENSE NON NSPG PCP SILVER CLARITY CONNECTORCARE [address] NON NSPG PCP [facility] Care Teams Activities Attendant Relationship Specialty Start Date End Date Dahiana Townsend MD [address] [phone] PCP - General Internal Medicine 09/22/23 Additional Source Comments The information contained in this document represents components of the legal health record. It is not the complete legal health record.[facility]
--- OUTSIDE RECORDS SUMMARY | 2025-07-17 09:49 | XMS_ITS | Encounter Summary ---
Author Organization [facility] Address [address] [place] [address] Care Team Providers Care Keg Varnisher Name Role Phone Dahiana Townsend MD Primary Care Provider [phone]- [phone] Encounter Details Date Type Department Care Team Description 01/24/2023 Pt. Non Urgent Medical Question Internal Medicine - [address], [address] [place] [address] Dahiana Townsend MD [address] [place] [phone] Social History Tobacco Use Types Packs/Day Years [...] on filedocumented in this encounter Care Teams Keg Varnisher Relationship Specialty Start Date End Date Dahiana Townsend MD PCP - General Internal Medicine 06/05/21 documented as of this encounter
--- OUTSIDE RECORDS SUMMARY | 2025-07-17 09:49 | XMS_ITS | Encounter Summary ---
Author Organization [facility] Address [address] [place] [address] Care Team Providers Care Forest Ranger Name Role Phone Valeria Kidd DO Primary Care Pro vider Unavailable Dahiana Townsend MD Primary Care Provider [phone]- [phone] Reason for Visit * Reason Onset Date Comments Pulmonary Function Test-Full 01/02/2020 randall eduled for 02.19.[address] [facility] Encounter Details Date Type Department Care Team Description 01/02/2020 Telephone Adult Medicine [address] [address] Catrachita Camarena PA-C Pulmonary Function Test-Full (scheduled for 02.19.[address] [facility] ) Social History Tobacco Use Types Packs/Day Years [...] encounter Miscellaneous Notes * Telephone Encounter - Catrachita Reed PA-C - 01/03/2020 7:53 AM EST This can wait. Thanks. * Telephone Encounter - Millicent Wangmudez - 01/02/2020 3:14 PM EST Spoke with patient an appointment for Pulmonary Function Test has been scheduled for 02.19.2020 at 10am at [facility] ([address] Per patient she stated that appointment needed to be before the next 2 weeks in which she will be having her follow up appointment, both [facility] and [address] locations will not have sooner availability. Can this patient wait until this appointment? Please let me know thank you. documented in this encounter Plan of Treatment Not on file documented as of this encounter Visit Diagnoses Not on filedocumented in this encounter Care Teams Forest Ranger Relationship Specialty Start Date End Date Valeria Kidd DO PCP - General Internal Medicine 08/19/17 06/04/21 Dahiana Townsend MD PCP - General Internal Medicine 06/05/21 documented as of this encounter
--- OUTSIDE RECORDS SUMMARY | 2025-07-17 09:49 | XMS_ITS | Encounter Summary ---
Author Organization [facility] Address [address] [place] [address] Care Team Providers Care Farm Manager Name Role Phone Dahiana Townsend MD Primary Care Provider [phone] Encounter Details Date Type Department Care Team Description 12/12/2023 Orders Only Medical Records [address] [place] [address] Lidia Ramirez PA Social History Tobacco Use Types Packs/Day [...] Date/Time Associated Diagnosis Comments OUTSIDE MRI/MRA Routine 11/30/2023 documented in this encounter Results * OUTSIDE MRI/MRA (11/30/2023) [facility] documented in this encounter Visit Diagnoses Not on filedocumented in this encounter Care Teams Farm Manager Relationship Specialty Start Date End Date Dahiana Townsend MD PCP - General Internal Medicine 06/05/21 documented as of this encounter
--- OUTSIDE RECORDS SUMMARY | 2025-07-17 09:49 | XMS_ITS | Encounter Summary ---
Author Organization [facility] Address [address] [place] [address] Care Team Providers Care Surgical Device Sales Representative Name Role Phone Dahiana Townsend MD Primary Care Provider [phone] Encounter Details Date Type Department Care Team (Latest Contact Info) Description 05/31/2025 Lab Requisition [facility] - Main Lab [address] [facility] [place] [address] Brandon Russo MD [address] [address] Encounter for gynecological examination (general) (routine) without abnormal findings Social History Tobacco Use Types Packs/Day Years [...] ed Within the last 3 months, ely w many times did you visit the [...] your loved ones. For example, child welfare worker or elderly care for an older adult? [...] PM EST documented as of this encounter Plan of Treatment Upcoming Encounters Date Type Department Care Team (Late st Contact Info) Description 07/18/2025 7:30 AM EDT Treatment [address] [address] Marion Ying, PT 08/13/2025 9:00 AM EDT Consult General Surgery - [place] [address] [facility] [address] [place] [phone] Carolina Salguero MD [address] [place], [place] 08/22/2025 8:30 AM EDT Office Visit Orthopedic Surgery - [place] 250 [address] [facility] [address] [place] [phone] Bon Trujillo DPM [address] [place], [place] 10/14/2025 8:15 AM EST Office Visit Internal Medicine - [place] [address] [facility] [address] [place] [phone] Dahiana Townsend MD [address] [place], [place] documented as of this encounter Procedures Procedure Name Priority Date/Time Associated Diagnosis Comments PAP SMEAR Routine 05/30/2025 12:00 AM EDT Encounter for gynecological examination (general) (routine) without abnormal findings documented in this encounter Results * Pap smear (05/30/2025 12:00 AM EDT) Interpretation Negative for intraepithelial lesion or malignancy 06/07/2025 3:49 PM [facility] General Categorization Negative 06/07/2025 3:49 PM [facility] Other Findings Atrophy 06/07/2025 3:49 PM T [facility] Specimen Adequacy Satisfactory for evaluation 06/07/2025 3:49 PM [facility] Pap Methodology Liquid Based Pap Test 06/07/2025 3:49 PM [facility] Disclaimer The Pap test is a screening test which carries an inherent false negative rate. These test results should be correlated with the patient's clinical findings and history. This Pap test was processed using an automated screening system. Technical cytopathology services provided by [facility], at [address] [place] [address] (CLIA # [id number]/Yesenia Loredo MD, Tear Down Matcher.) 06/07/2025 3:49 PM EDT [facility] Console Pap Interpretation Reported 06/07/2025 3:49 PM EDT [facility] Brushing/Spatula Cervix uteri structure / Unknown 05/30/2025 05/31/2025 7:05 AM EDT us Brandon Russo MD LAB CYTOLOGY ORDERABLES Final Result [facility] [address] [place] [address], documented in this encounter Visit Diagnoses Diagnosis Encounter for gynecological examination (general) (routine) without abnormal findings documented in this encounter Additional Health Concerns Assessment Noted Time PHQ-9 Depression Total Score: 4 10/07/20 24 10:52 PM EST documented as of this encounter Care Teams Surgical Device Sales Representative Relationship Specialty Start Date End Date Dahiana Townsend MD [address] [phone] PCP - General Internal Medicine 06/05/21 documented as of this encounter
--- OUTSIDE RECORDS SUMMARY | 2025-07-17 09:49 | XMS_ITS | Encounter Summary ---
Author Organization [facility] Address [address] [place] [address] Care Team Providers Care Framing Mechanic Name Role Phone Dahiana Townsend MD Primary Care Provider [phone] Encounter Details Date Type Department Care Team Description 07/19/2024 Pt. Non Urgent Medical Question Internal Medicine - [address], [address] [place] [address] Dahiana Townsend MD [address] [place] [phone] Social History Tobacco Use Types Packs/Day Years [...] on filedocumented in this encounter Care Teams Framing Mechanic Relationship Specialty Start Date End Date Dahiana Townsend MD PCP - General Internal Medicine 06/05/21 documented as of this encounter
--- OUTSIDE RECORDS SUMMARY | 2025-07-17 09:49 | XMS_ITS | Encounter Summary ---
Author Organization [facility] Address [address] [place] [address] Care Team Providers Care Waxing Machine Operator Helper Name Role Phone Dahiana Townsend MD Primary Care Provider [phone] Encounter Details Date Type Department Care Team Description 09/30/2021 Pt. Non Urgent Medical Question OBGYN - [address] [address] Carolina Aguiar, [address] [address] Social History Tobacco Use Types Packs/Day Years Used Date Smoking Tobacco: Never Smokeless Tobacco: Never Alcohol Use Standard Drinks/Week Comments No 0 (1 standard drink = 0.6 oz pur e alcohol) Sex Assigned at Date Recorded Female 06/06/2021 10:34 AM EDT Job Start Date Occupation Industry Not on file Not on file Not on file COVID-19 Exposure Response Date Recorded In the last month, have you been in contact with someone who was confirmed or suspected to have Coronavirus / COVID-19? No / Unsure 09/28/2021 2:40 PM EST documented as of this encounter Miscellaneous Notes * Telephone Encounter - Meli Rosario R.N. - 10/01/2021 8:51 AM ESTFrom: Rox Yan To: Kayden Aguiar Sent: 09/30/2021 7:18 PM EST Subject: PAPSMEAR results Hello, I was wondering how I would be able to get my PAPSMEAR test results? I don't see the results in My Chart. Thank you very much, Rox Yan documented in this encounter Plan of Treatment Not on file documented as of this encounter Visit Diagnoses Not on filedocumented in this encounter Care Teams Waxing Machine Operator Helper Relationship Specialty Start Date End Date Dahiana Townsend MD PCP - General Internal Medicine 06/05/21 documented as of this encounter
--- OUTSIDE RECORDS SUMMARY | 2025-07-17 09:49 | XMS_ITS | Encounter Summary ---
Author Organization [facility] Address [address] [place] [address] Care Team Providers Care Asphalt Still Operator Name Role Phone Dahiana Townsend MD Primary Care Provider Reason for Referral * Non GEORGE (Routine) - Authorized/Booked Specialty Diagnoses / Procedures Referred By Contac t Referred To Contact Oncology/Hematology Procedures REFERRAL TO ONCOLOGY/HEMATOLOGY (IN NETWORK) Dahiana Townsend MD [address] [place] [phone] Center, [facility] [address] [place] [address] Referral ID Status Reason Start Date Expiration Date V isits Requested Visits Authorized [id number] Authorized/B ooked 09/20/2024 09/20/2025 1 1 Encounter Details Date Type Department Care Team Description 09/20/2024 Orders Only Internal Medicine - [place] 175 [facility], [address] [place] [address] Dahiana Townsend MD [address] [place] [address] Social History Tobacco Use Types Packs/Day Years [...] filedocumented in this encounter Care Teams Asphalt Still Operator Relationship Specialty Start Date End Date Dahiana Townsend MD PCP - General Internal Medicine 06/05/21 documented as of this encounter
--- OUTSIDE RECORDS SUMMARY | 2025-07-17 09:49 | XMS_ITS | Encounter Summary ---
Author Organization [facility] Address [address] [place] [address] Care Team Providers Care Insole Cementer Name Role Phone Valeria Kidd DO Primary Care Pro vider Dahiana Mendoza MD Primary Care Provider [phone] Reason for Visit * Reason Onset Date Comments Pulmonary Testing 01/02/2020 Provider Call Back 01/02/2020 Encounter Details Date Type Department Care Team Description 01/02/2020 Telephone Adult Medicine [address] [address] Catrachita Camarena PA-C Pulmonary Testing; Provider Call Back Social History Tobacco Use Types Packs/Day Years [...] encounter Miscellaneous Notes * Telephone Encounter - Lidia Negro M.A. - 01/04/2020 9:39 AM EST [phone] (home) [phone] (work) Called pt and made aware. * Telephone Encounter - Catracihta Reed PA-C - 01/03/2020 7:54 AM EST She does not need to have pulmonary function test prior to seeing me. I am only seeing her for follow up of the chest tightness after she started prednsione. She can get the PFT testing done as they have available. * Telephone Encounter - Sil Melissa - 01/02/2020 3:20 PM EST The patient saw Catrachita Reed yesterday and states she is being referred for a PFT. The patient thinks she is supposed to have the PFT done prior to her f/u appointment on 01/16. She received a call about booking this but was told there is no time frame on the order when the test is to be done. She would like clarification if it is supposed to be scheduled lam and if yes, the order needs to indicate this. documented in this encounter Plan of Treatment Not on file documented as of this encounter Visit Diagnoses Not on filedocumented in this encounter Care Teams Insole Cementer Relationship Specialty Start Date End Date Valeria Kidd DO PCP - General Internal Medicine 08/19/17 06/04/21 Dahiana Townsend MD PCP - General Internal Medicine 06/05/21 documented as of this encounter
--- OUTSIDE RECORDS SUMMARY | 2025-07-17 09:49 | XMS_ITS | Encounter Summary ---
Author Organization [facility] Address [address] [place] [address] Care Team Providers Care Wire Machine Cutter Name Role Phone Dahiana Townsend MD Primary Care Provider [phone]- [phone] Encounter Details Date Type Department Care Team Description 09/19/2024 Pt. Non Urgent Medical Question Internal Medicine - [address], [address] [place] [address] Dahiana Townsend MD [address] [place] [phone] Social History Tobacco Use Types Packs/Day Years [...] on filedocumented in this encounter Care Teams Wire Machine Cutter Relationship Specialty Start Date End Date Dahiana Townsend MD PCP - General Internal Medicine 06/05/21 documented as of this encounter
--- OUTSIDE RECORDS SUMMARY | 2025-07-17 09:49 | XMS_ITS | Encounter Summary ---
Author Organization [facility] Address [address] [place] [address] Care Team Providers Care Repatcher Name Role Phone Dahiana Townsend MD Primary Care Provider [phone]- [phone] Encounter Details Date Type Department Care Team Description 11/28/2023 Consumer Insight Analyst Report Medical Records [address] [place] [address] Lauren Ravi MD Social History Tobacco Use Types Packs/Day Years [...] on filedocumented in this encounter Care Teams Repatcher Relationship Specialty Start Date End Date Dahiana Townsend MD PCP - General Internal Medicine 06/05/21 documented as of this encounter
--- OUTSIDE RECORDS SUMMARY | 2025-07-17 09:49 | XMS_ITS | Encounter Summary ---
Author Organization [facility] Address [address] [place] [address] Care Team Providers Care Coil Tester Name Role Phone Fiorella Collins MD Primary Care Provider Unavailabl e Valeria Kidd DO Primary Care Pro vider Unavailable Dahiana Townsend MD Primary Care Provider [phone] Encounter Details Date Type Department Care Team Description 06/23/2017 Employee Relations Consultant Report Medical Records [address] [place] [address] Fiorella Collins MD Social History Tobacco Use Types Packs/Day Years Used Date Smoking Tobacco: Never Assessed Sex Assigned at Date Recorded Female 06/06/2021 10:34 AM EDT Job Start Date Occupation Industry Not on file Not on file Not on file documented as of this encounter Plan of Treatment Not on file documented as of this encounter Visit Diagnoses Not on filedocumented in this encounter Care Teams Coil Tester Relationship Specialty Start Date End Date Fiorella Collins MD PCP - General Internal Medicine 06/08/17 08/18/17 Valeria Kidd DO PCP - General Internal Medicine 08/19/17 06/04/21 Dahiana Townsend MD PCP - General Internal Medicine 06/05/21 documented as of this encounter
--- OUTSIDE RECORDS SUMMARY | 2025-07-17 09:49 | XMS_ITS | Encounter Summary ---
Author Organization [facility] Address [address] [place] [address] Care Team Providers Care Feed Crusher Name Role Phone Fiorella Collins MD Primary Care Provider Unavailabl e Valeria Kidd DO Primary Care Pro vider Unavailable Dahiana Townsend MD Primary Care Provider [phone] Encounter Details Date Type Department Care Team Description 07/18/2017 Pt. Non Urgent Medic al Question Rheumatology - [address] [address] Meli Helm DO Social History Tobacco Use Types Packs/Day Years Used Date Smoking Tobacco: Never Alcohol Use Standard Drinks/Week Comments No 0 (1 standard drink = 0.6 oz pur e alcohol) Sex Assigned at Date Recorded Female 06/06/2021 10:34 AM EDT Job Start Date Occupation Industry Not on file Not on file Not on file documented as of this encounter Progress Notes * Lorene Honeycutt M.A. - 07/18/2017 3:49 PM EDTFrom: Rox Yan To: Meli Murillo DO Sent: 07/18/2017 9:51 AM EDT Subject: test message Thank you for helping me sign up. Please let me know if this worked. Rox Reveles documented in this encounter Plan of Treatment Not on file documented as of this encounter Visit Diagnoses Not on filedocumented in this encounter Care Teams Feed Crusher Relationship Specialty Start Date End Date Fiorella Collins MD PCP - General Internal Medicine 06/08/17 08/18/17 Valeria Kidd DO PCP - General Internal Medicine 08/19/17 06/04/21 Dahiana Townsend MD PCP - General Internal Medicine 06/05/21 documented as of this encounter
--- OUTSIDE RECORDS SUMMARY | 2025-07-17 09:49 | XMS_ITS | Encounter Summary ---
Author Organization [facility] Address [address] [place] [address] Care Team Providers Care Auricular Acupuncturist Name Role Phone Dahiana Townsend MD Primary Care Provider [phone] Reason for Visit * Reason Onset Date Comments Request For Order(s) 06/14/2025 MRI/ Head/w ith contrast Encounter Details Date Type Department Care Team ([facility] st Contact Info) Description 06/14/2025 Telephone Internal Medicine - [place] [address] [facility] [address] [place] [address] Dahiana Townsend MD [address] [place] [phone] Social History Tobacco Use Types Packs/Day Years [...] your loved ones. For example, child support officer or elderly care for an older adult? [...] as of this encounter Progress Notes * Kristina Haynes MA - 06/28/2025 4:01 PM EDT Spoke to patient and she stated she already had MRI done just waiting for results. * Dahiana Townsend MD - 06/27/2025 10:29 PM EDT MRI was already done yesterday,ordered by * Kristina Haynes MA - 06/26/2025 1:27 PM EDT MRI order needs to be ordered with contrast, please change * Ashlyn Kern - 06/14/2025 10:28 AM [...] Info) Description 07/18/2025 7:30 AM EDT Treatment [facility] - [place] 175 [facility] [address] [place] [phone] Marion Ying, ADELFO 08/13/2025 9:00 AM EDT Consult General Surgery - [place] 175 [facility] [address] [place] [phone] Carolina Salguero MD [address] [place] [address] 08/22/2025 8:30 AM EDT Office Visit Orthopedic Surgery - [place] [address] [facility] [address] [place] [phone] Bon Trujillo DPM [address] [place] [address] 10/14/2025 8:15 AM EST Office Visit Internal Medicine - [place] 175 [facility] [address] [place] [address] Dahiana Townsend MD [address] [place] [phone] documented as of this encounter Visit Diagnoses Not on filedocumented in this encounter Additional Health Concerns Assessment Noted Time PHQ-9 Depression Total Score: 4 10/07/20 24 10:52 PM EST documented as of this encounter Care Teams Auricular Acupuncturist Relationship Specialty Start Date End Date Dahiana Townsend MD [address] [place] [address] PCP - General Internal Medicine 06/05/21 documented as of this encounter
--- OUTSIDE RECORDS SUMMARY | 2025-07-17 09:49 | XMS_ITS | Encounter Summary ---
Author Organization [facility] Address [address] [place] [address] Care Team Providers Care Patent Law Specialist Name Role Phone Dahiana Townsend MD Primary Care Provider [phone] Encounter Details Date Type Department Care Team Description 09/09/2023 Orders Only Medical Records [address] [place] [address] [facility] Social History Tobacco Use Types Packs/Day Years [...] Recorded In the last 10 days, have yo u been in contact with someone who was confirmed or suspected to have Coronavirus/COVID-19? No / Unsure 09/08/2023 2:41 PM EDT documented as of this encounter Plan of Treatment Not on file documented as of this encounter Procedures Procedure Name Priority Date/Time Associated Diagnosis Comments OUTSIDE CT Routine 09/01/2023 documented in this encounter Results * OUTSIDE CT (09/01/2023) [facility] RADIOLOGY documented in this encounter Visit Diagnoses Not on filedocumented in this encounter Care Teams Patent Law Specialist Relationship Specialty Start Date End Date Dahiana Townsend MD PCP - General Internal Medicine 06/05/21 documented as of this encounter
--- OUTSIDE RECORDS SUMMARY | 2025-07-17 09:49 | XMS_ITS | Encounter Summary ---
Author Organization [facility] Address [address] [place] [address] Care Team Providers Care Maid Cleaning Cooking Name Role Phone Dahiana Townsend MD Primary Care Provider [phone] Encounter Details Date Type Department Care Team Description 09/29/2021 Orders Only Medical Records [address] [place] [address] Ge Levine MD [address] [place] [address] Social History Tobacco Use Types Packs/Day Years [...] Name Priority Date/Time Associated Diagnosis Comments OUTSIDE LAB Routine 09/29/2021 documented in this encounter Results * OUTSIDE LAB (09/29/2021) Ge Levine MD LAB documented in this encounter Visit Diagnoses Not on filedocumented in this encounter Care Teams Maid Cleaning Cooking Relationship Specialty Start Date End Date Dahiana Townsend MD PCP - General Internal Medicine 06/05/21 documented as of this encounter
--- OUTSIDE RECORDS SUMMARY | 2025-07-17 09:49 | XMS_ITS | Encounter Summary ---
Author Organization [facility] Address [address] [place] [address] Care Team Providers Care Small Engine Specialist Name Role Phone Dahiana Townsend MD Primary Care Provider [phone] Reason for Visit * Reason Onset Date Comments Medication 09/28/2021 Encounter Details Date Type Department Care Team Description 09/28/2021 Refill Gastroenterology - [address] [place] [address] Ge Levine MD [address] [place] [phone] Medication Social History Tobacco Use Types Packs/Day [...] on filedocumented in this encounter Care Teams Small Engine Specialist Relationship Specialty Start Date End Date Dahiana Townsend MD PCP - General Internal Medicine 06/05/21 documented as of this encounter
--- OUTSIDE RECORDS SUMMARY | 2025-07-17 09:49 | XMS_ITS | Encounter Summary ---
Author Organization [facility] Address [address] [place] [address] Care Team Providers Care Senior Nurse Manager Name Role Phone Dahiana Townsend MD Primary Care Provider [phone] Encounter Details Date Type Department Care Team Description 09/03/2024 Pt. Referral Request [facility] MyChart [address] [place] [id number] [address] Sesar Social History Tobacco Use Types Packs/Day Years [...] on filedocumented in this encounter Care Teams Senior Nurse Manager Relationship Specialty Start Date End Date Dahiana Townsend MD PCP - General Internal Medicine 06/05/21 documented as of this encounter
--- OUTSIDE RECORDS SUMMARY | 2025-07-17 09:49 | XMS_ITS | Clinical Summary ---
Author Organization [facility] Address [address] [place] [address] Care Team Providers Care Tennis Net Maker Name Role Phone Dahiana Townsend MD Primary Care Provider Allergies Active Allergy Reactions Severity Noted Date Comments Other (No Interaction Warnings) 07/18/2017 NIGHT SHADES - diarrhea Seasonal 07/06/2017 Sulfa Drugs Anaphylaxis,hallucin a tions High 05/30/2017 Other reaction(s): Delirium Medications Medication Sig Dispensed Refills Start Date End Date Status fluticasone 50 MCG/ACT nasal spray 2 Sprays by Each Nare route daily. 0 Active Cholecalciferol (VITAMIN D) 2000 UNITS CapIndications:Muscl e pain,Neck pain,Fibromyalgia Take by mouth 3 times daily. 0 Active Magnesium Malate 1250 (141.7 MG) MG TabIndications:Muscl e pain,Neck pain,Fibromyalgia Take by mouth 2 times daily. 0 Active B Complex Vitamins (VITAMIN-B COMPLEX OR) Take by mouth daily. 0 Active [place]-3 Fatty Acids (OMEGA-3 OR) Take by mouth 2 times daily. 0 Active Calcium 500-100 MG-UNIT Chew Tab Take 1 capsule by mouth daily. 0 Active Ginkgo Biloba 60 MG Cap Take 60 mg by mouth daily. 0 Active PSYLLIUM OR Take by mouth. 0 Active carbamazepine (TEGRETOL XR) 200 MG 12 hr tablet 0 12/30/2023 Active lorazepam (ATIVAN) 0.5 MG tablet 0 11/23/2023 Active dicyclomine (BENTYL) 10 MG capsuleIndications:A bdominal cramping Take 1 Capsule by mouth 4 times daily as needed (stomach cramps) for up to 180 days. 120 Capsule 5 06/13/2024 Active carbamazepine (TEGRETOL) 200 MG tabletIndications:Tr igeminal neuralgia Take 1 Tablet by mouth 3 times daily for 180 days. 90 Tablet 5 06/13/2024 Active azithromycin (ZITHROMAX) 250 MG tablet [address] day then 1 tab daily for 4 days 6 Tablet 0 07/19/2024 Active predniSONE (DELTASONE) 20 MG tablet 2 tab for 3 days and then 1 tab daily 12 Tablet 0 07/19/2024 Active Active Problems Problem Noted Date Constipation 06/13/2024 Trigeminal neuralgia 06/13/2024 Family history of breast cancer in siste r 09/17/2021 Overview: Triple Negative Family history of cervical cancer 2020 Overview: Small Cell Cervical CA Bilateral plantar fasciitis 03/08/2018 Lateral epicondylitis of right elbow 07/2018 Trigger ring finger of right hand 2017 Trigger finger, right little finger 10/22 Overview: Depo-medrol 20 mg injection 11/10/2017 Fibromyalgia 08/19/2017 Foot pain 08/19/2017 Resolved Problems Problem Noted Date Resolved Date Trigger little finger of right hand 11/11/2017 11/22/2017 Heel spur 08/19/2017 03/08/2018 Immunizations Name Administration Dates Next Due COVID-19 (Moderna) PT Reported 04/23/2021,2020 Influenza Vaccine-preservati ve Free-quadrivalent 4 Years 09/24/2022,09/14/2021,09/28/2018 TD (STATE SUPPLIED FOR ADULTS AND CHILDREN) 01/20 Tdap 09/14/2021 Family History Medical History Relation Name Comments Cholesterol Level Brother Hypertension Brother Hypertension Father gout Father psoriasis Father Diabetes Maternal Grandfather Stroke Maternal Grandfather CA Esophageal Maternal Grandmother Cancer, Other Maternal Grandmother gout Maternal Grandmother Cholesterol Level Mother Diabetes Mother Hypertension Mother CA Lung Paternal Grandfather small c ell Alcohol Abuse Paternal Grandmother CHF Paternal Grandmother Cervical Cancer Sister 1 CA Breast Sister 2 triple negative CA Colon Negative Hx CA Ovarian Negative Hx Relation Name Status Comments Brother Alive Father Alive Maternal Grandfather Maternal Grandmother Mother Alive Other Paternal Grandfather Paternal Grandmother Sister 1 Sister [...] file Not on file Not on file Last Filed Vital Signs Vital Sign Reading Time Taken Comments Blood Pressure 106/62 06/27/2024 3:12 PM EDT Pulse 62 06/27/2024 3:12 PM EDT Temperature 36.4 C (97.5 F) 05/10/2024 12:39 PM EDT Respiratory Rate 18 11/05/2021 8:51 AM EST Oxygen Saturation 98% 06/27/2024 3:12 PM EDT Inhaled Oxygen Concentration - - Weight 66.7 kg (147 lb) 07/31/2024 2:36 PM EDT Height 167.6 cm (5' 6 ) 07/31/2024 2:36 PM EDT Body Mass Index 23.73 07/31/2024 2:36 PM EDT Plan of Treatment Health Maintenance Due Date Last Done Comments HEPATITIS C SCREENING 1984 SHINGLES VACCINE (1 of 2) 2016 Covid-19 Vaccine (2022-2 4 season) 2024 04/23/2021, 03/26/2021 CERVICAL CANCER SCREENING 09/17/20242020, 07/11/2018, 06/24/2017 (Completed) DEPRESSION SCREENING/FOLLOWUP 11/21/2024 08/01/2019 SOCIAL NEEDS SCREENING 11/21/2024 MAMMOGRAM 12/20/2024 12/20/2023, 11/22, 12/09/2021, Additional history exists INFLUENZA (#1) 2025 09/24/2022, 08/22, 10/11/2020, Additional history exists BASELINE HEALTH EXAM 40-64 10/12/2025 11/22 /2023, 10/11/2023, 09/24/2022, Additional history exists CHOLESTEROL SCREENING 10/12/2028 10/12/2023 , 09/24/2022, 09/25/2021, Additional history exists PNEUMOCOCCAL VACCINE FOR HIG H RISK PATIENTS (#1) 2031 DTAP/TDAP/TD (2 - Td or Tdap) 09/14/2031 09/14/2021, 02/10/2018 COLON CANCER SCREENING 09/30/2031 , 06/27/2017 (Completed), 03/28/2017 Care Teams Tennis Net Maker Relationship Specialty Start Date End Date Dahiana Townsend MD PCP - General Internal Medicine 06/05/21
--- OUTSIDE RECORDS SUMMARY | 2025-07-17 09:49 | XMS_ITS | Encounter Summary ---
Author Organization [facility] Address [address] [place] [address] Care Team Providers Care Manuscripts Archivist Name Role Phone Valeria Kidd DO Primary Care Pro vider Dahiana Mendoza MD Primary Care Provider [phone] Encounter Details Date Type Department Care Team Description 10/25/2018 Pt. Non Urgent Medic al Question Adult Medicine [address] [address] Valeria Kidd DO Social History Tobacco Use Types Packs/Day [...] as of this encounter Progress Notes * Sonya Mart M.A. - 10/25/2018 8:34 AM ESTFrom: [place] To: Valeria Anderson DO Sent: 10/25/2018 8:33 AM EST Subject: Last message I said BP I meant pulse Sorry, in my last message I said BP but meant pulse. Rox [place] documented in this encounter Plan of Treatment Not on file documented as of this encounter Visit Diagnoses Not on filedocumented in this encounter Care Teams Manuscripts Archivist Relationship Specialty Start Date End Date Valeria Kidd DO PCP - General Internal Medicine 08/19/17 06/04/21 Dahiana Townsend MD PCP - General Internal Medicine 06/05/21 documented as of this encounter
--- OUTSIDE RECORDS SUMMARY | 2025-07-17 09:49 | XMS_ITS | Encounter Summary ---
Author Organization [facility] Address [address] [place] [address] Care Team Providers Care Wind Field Manager Name Role Phone Dahiana Townsend MD Primary Care Provider [phone] Encounter Details Date Type Department Care Team Description 07/03/2024 Telephone Internal Medicine - [address], [address] [place] [address] Dahiana Townsend MD [address] [place] [phone] Social History Tobacco Use Types Packs/Day [...] on filedocumented in this encounter Care Teams Wind Field Manager Relationship Specialty Start Date End Date Dahiana Townsend MD PCP - General Internal Medicine 06/05/21 documented as of this encounter
--- OUTSIDE RECORDS SUMMARY | 2025-07-17 09:49 | XMS_ITS | Encounter Summary ---
Author Organization [facility] Address [address] [place] [address] Care Team Providers Care Nurses Superintendent Name Role Phone Fiorella Collins MD Primary Care Provider Unavailabl e Valeria Kidd DO Primary Care Pro vider Unavailable Dahiana Townsend MD Primary Care Provider [phone]- [phone] Encounter Details Date Type Department Care Team Description 08/03/2017 Release of Information Medical Records [address] [place] [id number] Abstract, Provider Social History Tobacco Use Types Packs/Day Years [...] on filedocumented in this encounter Care Teams Nurses Superintendent Relationship Specialty Start Date End Date Fiorella Collins MD PCP - General Internal Medicine 06/08/17 08/18/17 Valeria Kidd DO PCP - General Internal Medicine 08/19/17 06/04/21 Dahiana Townsend MD PCP - General Internal Medicine 06/05/21 documented as of this encounter
--- OUTSIDE RECORDS SUMMARY | 2025-07-17 09:50 | XMS_ITS | Clinical Summary ---
Author Organization 175 [facility] Address [address] [place] [address] Phone Care Team Providers Care Orthotics Technician Name Role Phone Dahiana Townsend MD Primary Care Provider [phone] Allergies Active Allergy Reactions Criticality Noted Date [...] Take by mouth 2 times daily. Active calcium carbonate-vitam in D3 500 mg-2.5 mcg (100 unit) tablet,chewable Indications:Vit klein D deficiency Chew 1 tablet 1 (one) time each day. 90 tablet 3 5 Active B complex tabletIndicatio ns:Vitamin B12 deficiency Take 1 tablet by mouth 1 (one) time each day. 90 tablet 3 5 Active baclofen (LIORESAL) 10 mg tabletIndicatio ns:Muscle spasm Take 1 tablet (10 mg total) by mouth at bedtime as needed for muscle spasms. 30 tablet 11 5 Active LORazepam (ATIVAN) 0.5 mg tablet Take 2 tablets (1 mg total) by mouth 1 (one) time injection for anxiety for up to 1 dose. Max Daily Amount: 1 mg 2 tablet 5 Active triamcinolone (KENALOG) 0.1 % ointment Apply topically 2 (two) times a day if needed for irritation or rash. 15 g 5 06/27/20 25 cephalexin (KEFLEX) 500 mg capsuleIndicati ons:Lump of left thigh Take 1 capsule (500 mg total) by mouth 3 (three) times a day for 10 days. 30 each 5 06/17/20 25 ALPRAZolam (Xanax) 1 mg tablet Take 1 tablet (1 mg total) by mouth 1 (one) time injection for anxiety for up to 1 dose. Max Daily Amount: 1 mg 1 each 5 07/11/20 25 Active Problems Problem Noted Date Diagnosed Date Tendonitis of left hip 10/05/2024 Constipation 06/13/2024 Trigeminal neuralgia 06/13/2024 Bilateral plantar fasciitis 03/08/2018 Lateral epicondylitis of right elbow 11/29/2017 Trigger ring finger of right hand 11/22/2017 Trigger finger, right little finger 11/11/2017 Overview (08/31/2024): Depo-medrol 20 mg injection 11/10/2017 Fibromyalgia 08/19/2017 Foot pain 08/19/2017 Encounters Date Type Department Care Team Description 07/11/2025 7:00 AM EDT Treatment [address] [phone] Gumaro Hickman, ELECTRIC CELL TENDER 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) 07/10/2025 11:00 AM EDT Office Visit Orthopedic Surgery - [place] [address] [phone] Bon Trujillo, DPM Ganglion cyst (Primary Dx); Equinus contracture of ankle; Plantar fasciitis; Tendonitis, Achilles, left; Ingrowing nail 07/10/2025 Telephone Orthopedic [facility] [address] [phone] Bon Trujillo, DPM 07/09/2025 8:00 AM EDT Treatment [facility] [address] [phone] Marion Ying, PT 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) 07/07/2025 9:45 AM EDT Office Visit Walk-In Clinic - [address] [phone] Roly Cantrell PA Urinary frequency (Primary Dx) 07/01/2025 5:00 PM EDT Treatment [address] [phone] Gary Tillman, ELECTRIC CELL TENDER 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) 06/28/2025 8:00 AM EDT Treatment [address] [phone] Marion Ying, PT 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) 06/26/2025 5:30 PM EDT Treatment [address] [phone] Marion Ying, PT 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) 06/26/2025 3:22 PM EDT - 06/26/2025 11:59 PM EDT Hospital [facility] MRI [address] [place] [phone] Trigeminal neuralgia Discharge Disposition: Home or Self Care 06/24/2025 3:45 PM EDT Office Visit Orthopedic Surgery [facility] [address] [phone] Bon Trujillo, DPM Ingrowing nail (Primary Dx); Ganglion cyst; Metatarsalgia of both feet; Equinus contracture of ankle; Plantar fasciitis 06/14/2025 Telephone Internal Medicine [facility] [address] [phone] Dahiana Townsend MD 06/12/2025 1:15 PM EDT Office Visit Internal Medicine [facility] [address] [phone] aDhiana Townsend MD Osteoma of skull (Primary Dx); Decline in verbal memory 06/12/2025 Telephone Internal Medicine [facility] [address] [phone] Dahiana Townsend MD 06/09/2025 11:30 AM EDT - 06/09/2025 11:59 PM EDT Hospital Encounter [facility] Ultrasound [address] [place] [phone] Lump of left thigh Discharge Disposition: Home or Self Care 06/07/2025 10:00 AM EDT Office Visit Internal [facility] [address] [phone] Dennise Mckeon, GABRIELLA Lump of left thigh (Primary Dx); Cervical pain; Memory changes 06/06/2025 Telephone Orthopedic Surgery [facility] [address] [phone] Kathryn Sidhu 06/05/2025 3:30 PM EDT Evaluation [facility] Rehabilitation [facility] [address] [phone] Marion Ying PT 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) 06/04/2025 2:45 PM EDT Office Visit Orthopedic Surgery [facility] [address] [phone] Bon Trujillo DPM Cellulitis of left foot (Primary Dx); Ingrowing nail 05/31/2025 Lab Requisition [facility] - Main Lab [address] [facility] [place] [phone] Brandon Russo MD Encounter for gynecological examination (general) (routine) without abnormal findings 05/22/2025 Telephone Internal Medicine [facility] [address] [phone] Dahiana Townsend MD 05/17/2025 Telephone Internal Medicine [facility] [address] [phone] Dahiana Townsend MD 05/14/2025 8:00 AM EDT - 05/14/2025 11:59 PM EDT Hospital Encounter [facility] Ultrasound [address] [place] [address] Discharge Disposition: Home or Self Care 04/29/2025 2:00 PM EDT Office Visit Internal Medicine [facility] [address] [phone] Dennise Mckeon NP Memory changes (Primary Dx); Vitamin B12 deficiency; Pelvic pain; Muscle spasm; Head lump 04/25/2025 4:00 PM EDT Office Visit Internal Medicine [facility] [address] [phone] Gina Hendricks PA Malodorous urine (Primary Dx); Acute bilateral low back pain without sciatica 04/18/2025 2:45 PM EDT Office Visit Orthopedic Surgery [facility] [address] [phone] Bon Trujillo DPM Ingrowing nail (Primary Dx); Plantar fasciitis; Metatarsalgia of both feet 04/18/2025 Telephone Internal Medicine [facility] [address] [phone] Dahiana Townsend MD 04/17/2025 Telephone Internal Medicine - [place] 175 [facility] [address] [place] [address] Dahiana Townsend MD 04/16/2025 10:30 AM EDT Office Visit Internal Medicine [facility] [address] [place] [phone] Dennise Mckeon NP Breast pain (Primary Dx); Memory change; Nerve pain; Other fatigue; Screening for diabetes mellitus; Vitamin D deficiency from Last 3 Months Immunizations Name Administration [...] PROCEDURE: HISTORICAL TONSILLECTOMY OTHER SURGICAL HISTORY PROCEDURE: AR MYOMECTOMY 1-4 MYOMAS 250 GM/< VAGINAL APPR APPENDECTOMY PROCEDURE: AR APPENDECTOMY COLONOSCOPY PROCEDURE: HISTORICAL COLONOSCOPY Medical History [...] care for your loved ones. For example, registered nurse maternal child or elderly care for an older adult? [...] Sign Reading Time Taken Comments Blood Pressure 136/71 07/07/2025 9:57 AM EDT Pulse 58 07/07/2025 9:57 AM EDT Temperature 36.2 C (97.2 F) 07/07/2025 9:57 AM EDT Respiratory Rate 20 06/12/2025 1:43 PM EDT Oxygen Saturation 97% 07/07/2025 9:57 AM EDT Inhaled Oxygen Concentration - - Weight 68 kg (150 lb) 06/12/2025 1:43 PM EDT Height 165.1 cm (5' 5 ) 06/12/2025 1:43 PM EDT Body Mass Index 24.96 06/12/2025 1:43 PM EDT Plan of Treatment Upcoming Encounters Date Type Department Care Team (Late st Contact Info) Description 07/18/2025 7:30 AM EDT Treatment [facility] Rehabilitation - [place] 175 [facility] [address] [place] [phone] Marion Ying, ADELFO 08/13/2025 9:00 AM EDT Consult General Surgery [facility] 175 [facility] [address] [place] [phone] Carolina Salguero MD [address] [place] [phone] 08/22/2025 8:30 AM EDT Office Visit Orthopedic Surgery [facility] [address] [facility] 250 [place] [phone] Bon Trujillo D[facility]aren [address] [place] [phone] 10/14/2025 8:15 AM EST Office Visit Internal Medicine - [address] [place] [phone] Dahiana Townsend MD [address] [place] [phone] Health Maintenance Due Date Last Done Comments Hepatitis B Vaccines (1 of 3 - 19+ 3-dose series) 1985 Pneumococcal Vaccine: 50+ Years (1 of 1 - PCV) 2016 Zoster Vaccines (1 of 2) 2016 HIV Screening 10/30/2022 Hepatitis C Screening 10/30/2022 Depression Screening 11/21/2024 10/07/2024 Influenza Vaccine (#1) 2025 , 11/24/2023, 09/24/2022, Additional history exists Social Influencers of Health Screening 10/07/2025 10/07/2024 Cervical Cancer Screening: HPV 09/17/2026 09/17/2021 Breast Cancer Screening 12/25/2026 12/25/19, 12/20/2023, 12/15/2022, Additional history exists Cholesterol Screening (Lipid Panel) 10/05/2029 10/05/2024, 10/12/2023 DTaP,Tdap,and Td Vaccines (3 - Td or Tdap) 09/14/2031 09/14/2021, 02/10/2018 Colorectal Cancer Screening: Colonoscopy 09/30/2031 09/30/2021 RSV Immunization Adult Patients (1 - 1-dose 75+ series) 2041 COVID-19 Vaccine Completed 10/09/2024, , 10/02/2022, Additional history exists MMR Vaccines Aged Out 03/21/2025 No longer eligi ble based on patient's age to complete this topic HIB Vaccines Aged Out No longer eligi [...] age to complete this topic Meningococcal B Vaccine Aged Out No l onger eligible based on patient's age to complete this topic RSV Immunization Patients Under 20 months Aged Out No longer eligible based on patient's age to complete this topic Varicella Vaccines Aged Out No longer eligible based on patient's age to complete this topic Procedures Procedure Name Priority Date/Time Associated Diagnosis Comments URINALYSIS MICROSCOPIC ONLY Routine 07/07/2025 4:10 PM EDT Urinary frequency URINALYSIS MICROSCOPIC ONLY Routine 07/07/2025 4:10 PM EDT Urinary frequency VAGINITIS PATHOGENS BY PCR Routine 07/07/2025 4:10 PM EDT Urinary frequency CULTURE URINE Routine 07/07/2025 4:10 PM EDT Urinary frequency POC URINE NON-AUTO W/O MICRO Routine 07/07/2025 10:53 AM EDT Urinary frequency MR BRAIN WO AND W CONTRAST Routine 06/26/2025 4:58 PM EDT Trigeminal neuralgia US EXTREMITY NONVASCULAR LIMITED LEFT Routine 06/09/2025 12:05 PM EDT Lump of left thigh PAP SMEAR Routine 05/30/2025 12:00 AM EDT Encounter for gynecological examination (general) (routine) without abnormal findings URINALYSIS WITH REFLEX MICROSCOPIC Routine 05/23/2025 11:21 AM EDT UTI symptoms URINALYSIS WITH REFLEX MICROSCOPIC Routine 05/23/2025 11:21 AM EDT UTI symptoms US HEAD NECK SOFT TISSUE Routine 05/14/2025 8:41 AM EDT Head lump URINALYSIS WITH REFLEX MICROSCOPIC Routine 04/29/2025 3:00 PM EDT Pelvic pain URINALYSIS WITH REFLEX MICROSCOPIC Routine 04/29/2025 3:00 PM EDT Pelvic pain PROGESTERONE Routine 04/29/2025 3:00 PM EDT Memory changes TESTOSTERONE FREE, BIOAVAILABLE AND TOTAL Routine 04/29/2025 3:00 PM EDT Memory changes ESTROGENS, TOTAL AND FRACTIONATED Routine 04/29/2025 3:00 PM EDT Memory changes VAGINITIS PATHOGENS BY PCR Routine 04/25/2025 3:30 PM EDT Malodorous urine Acute bilateral low back pain without sciatica CBC WITH AUTO DIFFERENTIAL Routine 04/16/2025 11:01 AM EDT Other fatigue URINALYSIS WITH REFLEX MICROSCOPIC Routine 04/16/2025 11:01 AM EDT Memory change CBC AND DIFFERENTIAL Routine 04/16/2025 11:01 AM EDT Other fatigue FERRITIN Routine 04/16/2025 11:01 AM EDT Other fatigue FOLATE Routine 04/16/2025 11:01 AM EDT Other fatigue IRON AND TIBC Routine 04/16/2025 11:01 AM EDT Other fatigue VITAMIN B12 Routine 04/16/2025 11:01 AM EDT Other fatigue COMPREHENSIVE METABOLIC PANEL Routine 04/16/2025 11:01 AM EDT Breast pain HEMOGLOBIN A1C Routine 04/16/2025 11:01 AM EDT Screening for diabetes mellitus MAGNESIUM Routine 04/16/2025 11:01 AM EDT Breast pain THYROID STIMULATING HORMONE Routine 04/16/2025 11:01 AM EDT Breast pain VITAMIN D 25 HYDROXY Routine 04/16/2025 11:01 AM EDT Vitamin D deficiency URINALYSIS WITH REFLEX MICROSCOPIC Routine 04/16/2025 11:01 AM EDT Memory change TY IFA WITH TITER AND PATTERN Routine 04/16/2025 11:01 AM EDT Other fatigue Breast pain C-REACTIVE PROTEIN Routine 04/16/2025 11 :01 AM EDT Other fatigue Breast pain MG MAMMO DIGITAL SCREENING W GARETH BILAT Routine 12/25/2024 7:36 AM EST Encounter for screening mammogram for breast cancer LIPID PANEL WITH REFLEX TO DIRECT LDL Routine 10/05/2024 8:16 AM EST Impaired fasting glucose Hypercholesterolemia HM COLONOSCOPY Routine 09/30/2021 HM HPV Routine 09/17/2021 from Last 3 Months or Most Recently Relevant to Health Maintenance Results * Urinalysis microscopic only (07/07/2025 4:10 PM EDT) RBC, Urine 1.1 0 - 4 /HPF LAB URINALYSIS - AUTOMATED METHOD 07/07/2025 7:26 PM [facility] WBC, Urine 0.8 0 - 4 /HPF LAB URINALYSIS - AUTOMATED METHOD 07/07/2025 7:26 PM [facility] Squamous Epithelial, Urine 8 0 - 60 /LPF LAB URINALYSIS - AUTOMATED METHOD 07/07/2025 7:26 PM [facility] Bacteria, Urine Negative Negative /HPF LAB URINALYSIS - AUTOMATED METHOD 07/07/2025 7:26 PM [facility] Hyaline Casts, Urine 0.4 0 - 3 /LPF LAB URINALYSIS - AUTOMATED METHOD 07/07/2025 7:26 PM [facility] Urine Urine specimen obtained by clean catch procedure / Unknown Non-blood Collection / Unknown 07/07/2025 4:10 PM EDT 07/07/2025 4:10 PM EDT R[facility] MOR[facility] LAB URINE ORDERABLES Final Result Performing Organization Address [facility]/ZIP Co de Phone Number [facility] [address] [place] [address], [place] [phone] * Vaginitis pathogens molecular study (07/07/2025 4:10 PM EDT) Only the most recent of2 resultswithin the time period is included. Trichomonas vaginalis Negative Negative 07/08/2025 12:00 PM EDT [facility] Gardnerella vaginalis Negative Negative 07/08/2025 12:00 PM EDT [facility] Hilary Species Negative Negative 12:00 PM EDT [facility] Swab Vaginal structure / Unknown Non-blood Collection / Unknown 07/07/2025 4:10 PM EDT 07/07/2025 4:10 PM EDT [facility] LAB MICROBIOLOGY - GENERAL ORDERABLES Final Result Performing Organization Address [facility] Co de Phone Number [facility] [address] [place] [address], [place] [phone] * Culture urine (07/07/2025 4:10 PM EDT) Culture, Urine No growth 07/08/2025 12:32 PM EDT [facility] Urine Urine specimen obtained by clean catch procedure / Unknown Non-blood Collection / Unknown 07/07/2025 4:10 PM EDT 07/07/2025 4:10 PM EDT [facility] MICROBIOLOGY - GENERAL ORDERABLES Final Result [facility] [address] [place] [address], [place] [phone] * (ABNORMAL) POC Urine Non-Auto W/O Micro (07/07/2025 10:53 AM EDT) GLUCOSE POC Negative Negative, Trace mg/dL Leukocytes UA POC 1+(A) Negative mg/dL Nitrite UA POC Negative Urobilinogen UA POC 0.2 E.U./dL mg/dL Protein UA POC Positive Positive, Negative PH UA POC 6.0 BRODERICK/HM UA POC Negative Negative Specific [place] UA POC 1.010 Ketones UA POC Negative Negative Bilirubin UA POC Negative Negative Urine Urine specimen obtained by clean catch procedure / Unknown 07/07/2025 10:53 AM EDT Roly MORENO POINT OF CARE TEST ENTER/E DIT ORDERABLES Final Result * MR Brain wo and w Contrast (06/26/2025 4:58 PM EDT) Anatomical Region Laterality Modality Head and Neck Magnetic Resonan ce 06/28/2025 12:1 2 PM EDT Impressions 06/28/2025 12:16 PM EDT Normal MRI appearance of the brain for patient age. Dedicated imaging of the trigeminal nerves is unremarkable. -------- FINAL REPORT -------- Dictated By: Bg Brewer Dictated Date: 06/28/2025 12:12 ET Assigned Physician: Bg Brewer Reviewed and Electronically Signed By: Bg Brewer Signed Date: 06/28/2025 12:16 ET Workstation ID: [id number] Transcribed By: Self Edit Transcribed Date: 06/28/2025 12:12 ET Narrative 06/28/2025 12:16 PM EDT PROCEDURE: Contrast-enhanced MRI of the brain. HISTORY: TRIGEMINAL NEURALGIA PARESTHESIA OF SKIN. TECHNIQUE: Multiplanar multisequence MRI of the brain with and without intravenous contrast. Dedicated thin section imaging focused on the trigeminal nerves was also performed with and without intravenous contrast. IV CONTRAST DOSE: 14 mL Dotarem from a 15 mL vial with 1 mL discarded. COMPARISON: 10/03/2018. FINDINGS: BRAIN: No diffusion abnormality. No mass or extra-axial fluid collection. No hydrocephalus. The major intracranial flow voids are preserved. Age commensurate ventricles and sulci. No abnormal enhancement. There are a few stable foci of T2 prolongation in the supratentorial white matter which are likely sequela of mild chronic microvascular ischemic disease. Dedicated thin section imaging focused on the trigeminal nerves is unremarkable. There is no mass or abnormal enhancement. ORBITS: Normal. SINUSES/MASTOIDS: Minimal mucosal thickening in the ethmoids. Very small mucous retention cyst in the posterior right maxillary antrum and a small mucous retention cyst in the left lateral sphenoid sinus. Small left delia bullosa. CALVARIUM: Mild hyperostosis frontalis interna. OTHER: The visualized skull base soft tissues are normal. Procedure Note Bg Brewer MD - 06/28/2025 PROCEDURE: Contrast-enhanced MRI of the brain. HISTORY: TRIGEMINAL NEURALGIA PARESTHESIA OF SKIN. TECHNIQUE: Multiplanar multisequence MRI of the brain with and withoutintravenous contrast. Dedicated thin section imaging focused on thetrigeminal nerves was also performed with and without intravenouscontrast. IV CONTRAST DOSE: 14 mL Dotarem from a 15 mL vial with 1 mL discarded. COMPARISON: 10/03/2018. FINDINGS: BRAIN: No diffusion abnormality. No mass or extra-axial fluid collection.No hydrocephalus. The major intracranial flow voids are preserved. Agecommensurate ventricles and sulci. No abnormal enhancement. There are afew stable foci of T2 prolongation in the supratentorial white matterwhich are likely sequela of mild chronic microvascular ischemic disease. Dedicated thin section imaging focused on the trigeminal nerves isunremarkable. There is no mass or abnormal enhancement. ORBITS: Normal. SINUSES/MASTOIDS: Minimal mucosal thickening in the ethmoids. Very smallmucous retention cyst in the posterior right maxillary antrum and a smallmucous retention cyst in the left lateral sphenoid sinus. Small leftconcha bullosa. CALVARIUM: Mild hyperostosis frontalis interna. OTHER: The visualized skull base soft tissues are normal. IMPRESSION: Normal MRI appearance of the brain for patient age. Dedicated imaging ofthe trigeminal nerves is unremarkable. -------- FINAL REPORT -------- Dictated By: Bg Brewer Dictated Date: 06/28/2025 12:12 ET Assigned Physician: Bg Brewer Reviewed and Electronically Signed By: Bg Brewer Signed Date: 06/28/2025 12:16 ET Workstation ID: [id number] Transcribed By: Self Edit Transcribed Date: 06/28/2025 12:12 ET us Lauren Ravi MD IMSidney MRI PROCEDURES Final Resul t * US Extremity Nonvascular Limited Left (06/09/2025 12:05 PM EDT) Anatomical Region Laterality Modality Extremity Left Ultrasound 06/09/2025 1:24 PM EDT Impressions 06/09/2025 1:28 PM EDT Superficial areas of altered echotexture with circumscribed margins in the areas of palpable concern. Possibilities include areas of fat necrosis following injury. No suspicious features. The patient should be managed on the basis of the clinical exam and history and repeat or intervention would be indicated if the areas increase. -------- FINAL REPORT -------- Dictated By: Zafar Lopes Dictated Date: 06/09/2025 13:24 ET Assigned Physician: Zafar Lopes Reviewed and Electronically Signed By: Zafar Lopes Signed Date: 06/09/2025 13:28 ET Workstation ID: [id number] Transcribed By: Self Edit Transcribed Date: 06/09/2025 13:24 ET Narrative 06/09/2025 1:28 PM EDT EXAMINATION: US , SOFT TISSUES IN THE POSTEROLATERAL LEFT THIGH CLINICAL INFORMATION: Soft tissue lumps lateral thigh 2 weeks after injury. COMPARISON: None. TECHNIQUE: High-frequency linear transducer examination with attention to the area of clinical concern The study targeted areas of palpable concern in the superficial tissues of the left thigh laterally. FINDINGS: QUALITY: Adequate There are fairly circumscribed areas of altered echotexture in the superficial tissues of the lateral left thigh in the area of palpable concern. 2 separate areas are demonstrated. There is a round nearly anechoic circumscribed superficial soft tissue abnormality with a thin echogenic rim measuring approximately 1.1 cm. No color signal. There may be some anechoic components. A second similar area measures 1.3 cm The interface with the deeper tissues a sharply defined. There is no evidence of infiltration. Procedure Note Zafar Lopes MD - 06/09/2025 EXAMINATION: US , SOFT TISSUES IN THE POSTEROLATERAL LEFT THIGH CLINICAL INFORMATION: Soft tissue lumps lateral thigh 2 weeks after injury. COMPARISON: None. TECHNIQUE: High-frequency linear transducer examination with attention to the area ofclinical concern The study targeted areas of palpable concern in the superficial tissues ofthe left thigh laterally. FINDINGS: QUALITY: Adequate There are fairly circumscribed areas of altered echotexture in thesuperficial tissues of the lateral left thigh in the area of palpableconcern. 2 separate areas are demonstrated. There is a round nearly anechoiccircumscribed superficial soft tissue abnormality with a thin echogenicrim measuring approximately 1.1 cm. No color signal. There may be someanechoic components. A second similar area measures 1.3 cm The interface with the deeper tissues a sharply defined. There is noevidence of infiltration. IMPRESSION: Superficial areas of altered echotexture with circumscribed margins in theareas of palpable concern. Possibilities include areas of fat necrosisfollowing injury. No suspicious features. The patient should be managed on the basis of the clinical exam andhistory and repeat or intervention would be indicated if the areasincrease. -------- FINAL REPORT -------- Dictated By: Zafar Lopes Dictated Date: 06/09/2025 13:24 ET Assigned Physician: Zafar Lopes Reviewed and Electronically Signed By: Zafar Lpoes Signed Date: 06/09/2025 13:28 ET Workstation ID: [id number] Transcribed By: Self Edit Transcribed Date: 06/09/2025 13:24 ET us Dennise Mckeon NP IMG US PROCEDURES Final Result * Pap smear (05/30/2025 12:00 AM EDT) Interpretation Negative for intraepithelial lesion or malignancy 06/07/2025 3:49 PM EDT [facility] General Categorization Negative 06/07/2025 3:49 PM EDT [facility] Other Findings Atrophy 06/07/2025 3:49 PM EDT [facility] Specimen Adequacy Satisfactory for evaluation 06/07/2025 3:49 PM EDT [facility] Pap Methodology Liquid Based Pap Test 06/07/2025 3:49 PM EDT [facility] Disclaimer The Pap test is a screening test which carries an inherent false negative rate. These test results should be correlated with the patient's clinical findings and history. This Pap test was processed using an automated screening system. Technical cytopathology services provided by [facility], at [address] [place] [id number] (CLIA # [id number]/Yesenia Loredo MD, [employer] Machine Tender Helper.) 06/07/2025 3:49 PM EDT [facility] Console Pap Interpretation Reported 06/07/2025 3:49 PM [facility] Brushing/Spatula Cervix uteri structure / Unknown 05/30/2025 05/31/2025 7:05 AM EDT us Brandon Russo MD LAB CYTOLOGY ORDERABLES Final Result [facility] [address] [place] [address], * Urinalysis with reflex microscopic (05/23/2025 11:21 AM EDT) Only the most recent of3 resultswithin the time period is included. Specific [place] Urine 1.013 1.003 - 1.030 LAB URINALYSIS - AUTOMATED METHOD 05/23/2025 12:08 PM EDT [facility] pH, Urine 6.0 5.0 - 8.0 pH LAB URINALYSIS - AUTOMATED METHOD 05/23/2025 12:08 PM EDT [facility] Leukocytes, Urine Negative Negative LAB URINALYSIS - AUTOMATED METHOD 05/23/2025 12:08 PM [facility] Nitrite, Urine Negative Negative LAB URINALYSIS - AUTOMATED METHOD 05/23/2025 12:08 PM [facility] Protein, Urine Negative <=Trace mg/dL LAB URINALYSIS - AUTOMATED METHOD 05/23/2025 12:08 PM [facility] Glucose, Urine Negative Negative mg/dL LAB URINALYSIS - AUTOMATED METHOD 05/23/2025 12:08 PM [facility] Ketones, Urine Negative Negative mg/dL LAB URINALYSIS - AUTOMATED METHOD 05/23/2025 12:08 PM [facility] Urobilinogen, Urine 0.2 0.2 - 1.0 mg/dL LAB URINALYSIS - AUTOMATED METHOD 05/23/2025 12:08 PM [facility] Bilirubin, Urine Negative Negative LAB URINALYSIS - AUTOMATED METHOD 05/23/2025 12:08 PM [facility] Blood, Urine Negative Negative LAB URINALYSIS - AUTOMATED METHOD 05/23/2025 12:08 PM [facility] Urine Urine specimen obtained by clean catch procedure / Unknown Non-blood Collection / Unknown 05/23/2025 11:21 AM EDT 05/23/2025 11:21 AM EDT us Dennise Mckeon NP LAB URINE ORDERABLES Final Resul t [facility] [address] [place] [address], * US Head Neck Soft Tissue (05/14/2025 8:41 AM EDT) Anatomical Region Laterality Modality Head and Neck Ultrasound 05/15/2025 12:2 8 PM EDT Impressions 05/15/2025 12:43 PM EDT 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 CT OR MRI COULD CONFIRM. -------- FINAL REPORT -------- Dictated By: YURI ZAVALA Dictated Date: 05/15/2025 12:28 ET Assigned Physician: YURI ZAVALA Reviewed and Electronically Signed By: YURI ZAVALA Signed Date: 05/15/2025 12:43 ET Workstation ID: [id number] Transcribed By: Self Edit Transcribed Date: 05/15/2025 12:28 ET Narrative 05/15/2025 12:43 PM EDT PROCEDURE: US HEAD NECK SOFT TISSUE INDICATION: Mass or lump TECHNIQUE: 2-D sol scale, color Doppler ultrasound of the head. COMPARISON: No priors available. FINDINGS: There is a 7 x 5 x 5 mm contour abnormality associated with the calvarium in the region of clinical concern near the vertex. No other mass or fluid collection. Procedure Note Yuri Zavala MD - 05/15/2025 PROCEDURE: US HEAD NECK SOFT TISSUE INDICATION: Mass or lump TECHNIQUE: 2-D sol scale, color Doppler ultrasound of the head. COMPARISON: No priors available. FINDINGS: There is a 7 x 5 x 5 mm contour abnormality associated with thecalvarium in the region of clinical concern near the vertex. No othermass or fluid collection. 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 CT OR MRI COULDCONFIRM. -------- FINAL REPORT -------- Dictated By: YURI ZAVALA Dictated Date: 05/15/2025 12:28 ET Assigned Physician: YURI ZAVALA Reviewed and Electronically Signed By: YURI ZAVALA Signed Date: 05/15/2025 12:43 ET Workstation ID: [id number] Transcribed By: Self Edit Transcribed Date: 05/15/2025 12:28 ET Dennise Mckeon NP IMG US PROCEDURES Final Result * Estrogens, total and fractionated (04/29/2025 3:00 PM EDT) Estrone 6 pg/mL 05/03/2025 2:54 PM EDT [facility] Comment: Early Follicular <150 Late Follicular 100-250 Luteal <200 Post-menopausal 3-32 Estradiol <2 pg/mL 05/03/2025 2:54 PM EDT [facility] Comment: Early Follicular 30-100 Late Follicular 100-400 Luteal 50-150 Post-menopausal 2-21 Estrogens, Total, Calculation <8 pg/mL 05/03/2025 2:54 PM EDT [facility] Comment: Early Follicular 30-250 Late Follicular 200-650 Luteal 50-350 Post-menopausal 5-52 Note that total estrogens from estrone plus estradiol are not valid in due to presence of estriol at significant levels. This test was developed and its performance characteristics determined by [facility] in a manner consistent with CLIA requirements. This test has not been cleared or approved by the U.S. Food and Drug Administration. This test is used for patient testing purposes. It should not be regarded as investigational or for research. Test performed at [facility], [address] , [place] [address] Nita Meade MD, PhD - [employer] Machine Tender Helper Blood Venous blood specimen / Unknown Venipuncture / Unknown 04/29/2025 3:00 PM EDT 04/29/2025 3:00 PM EDT Dennise Mckeon NP LAB BLOOD ORDERABLES Final Resul t [facility] [address] [place] [address] * Testosterone free, bioavailable and total (04/29/2025 3:00 PM EDT) Testosterone 7 7 - 46 ng/dL LAB [...] EDT [facility] Comment: FEMALES: pre-menopausal 10.8 - >180 post-menopausal 23.2 - 159.1 MALES: 21-49 years 14.6 - 94.6 50-89 years 21.6 - 113.1 CHILDREN: No established reference range Over the counter supplements containing high doses of biotin may interfere with this assay. If interference is suspected, patients should be retested after refraining from biotin supplements for 72 hours. Albumin 4.0 3.2 - 5.0 g/dL LAB CHEMISTRY METHOD 04/29/2025 7:42 PM EDT [facility] Blood Venous blood specimen / Unknown Venipuncture / Unknown 04/29/2025 3:00 PM EDT 04/29/2025 3:00 PM EDT Dennise Mckeon NP LAB BLOOD ORDERABLES Final Resul t [facility] [address] [place] [address], * Progesterone (04/29/2025 3:00 PM EDT) Progesterone <0.2 ng/mL LAB CHEMISTRY METHOD 04/29/2025 7:20 PM EDT [facility] Comment: PROGESTERONE REFERENCE RANGES (NG/ML) FEMALES NORMALLY MENSTRUATING: FOLLICULAR PHASE 0.2 - 1.7 MIDCYCLE PEAK 2.3 - 242 LUTEAL PHASE 8.8 - 21.6 POSTMENOPAUSAL <0.2 - 0.9 : FIRST TRIMESTER 11.4 - 41.0 SECOND TRIMESTER 13.5 - 156 THIRD TRIMESTER 51.4 - >200 This assay should not be used in patients taking DHEA supplements as part of IVF treatment. A metabolite (DHEA-S) of this supplement has been shown to cross-react with the progesterone assay and cause falsely elevated results. Blood Venous blood specimen / Unknown Venipuncture / Unknown 04/29/2025 3:00 PM EDT 04/29/2025 3:00 PM EDT us Dennise Mckeon PRESIDENT CEO & FOUNDER LAB BLOOD ORDERABLES Final Resul t Performing Organization Address City/[facility]/ZIP Co de Phone Number [facility] [address] [place] [address], [place] [phone] * TY IFA with titer and pattern (04/16/2025 11:01 AM EDT) Pathologist [facility] TY Negative Negative 04/17/2025 2:46 PM EDT [facility] Blood Venous blood specimen / Unknown Venipuncture / Unknown 04/16/2025 11:01 AM EDT 04/16/2025 11:01 AM EDT us Dennise Mckeon PRESIDENT CEO & FOUNDER LAB BLOOD ORDERABLES Final Resul t Performing Organization Address [facility]/ZIP Co de Phone Number [facility] [address] [place] [address], [place] [phone] * CBC auto differential (04/16/2025 11:01 AM EDT) [facility] WBC 5.5 4.8 - 10.8 K/mcL LAB HEMETOLOGY METHOD 04/16/2025 2:28 PM EDT [facility] RBC 4.40 3.80 - 4.80 M/mcL LAB HEMETOLOGY METHOD 04/16/2025 2:28 PM EDT [facility] Hemoglobin 12.9 11.5 - 16.0 g/dL LAB HEMETOLOGY METHOD 04/16/2025 2:28 PM EDT [facility] Hematocrit 40.2 35.0 - 47.0 % LAB HEMETOLOGY METHOD 04/16/2025 2:28 PM EDT [facility] MCV 91.2 79.0 - 98.0 FL LAB HEMETOLOGY METHOD 04/16/2025 2:28 PM EDT [facility] MCH 29.3 27.0 - 32.0 pcg LAB HEMETOLOGY METHOD 04/16/2025 2:28 PM EDT [facility] MCHC 32.1 32.0 - 37.0 g/dL LAB HEMETOLOGY METHOD 04/16/2025 2:28 PM [facility] RDW 13.3 11.0 - 15.0 % LAB HEMETOLOGY [facility] Plate[facility] 284 130 - 400 K/mcL LAB HEMETOLOGY METHOD 04/16/2025 2:28 PM [facility] MPV 9.9 7.0 - 11.0 FL LAB HEMETOLOGY METHOD 04/16/2025 2:28 PM [facility] NRBC 0.0 <1.0 % LAB HEMETOLOGY METHOD 04/16/2025 2:28 PM [facility] NRBC Absolute 0.00 <0.10 K/mcL LAB HEMETOLOGY METHOD 04/16/2025 2:28 PM [facility] Neutrophils Relative 63.5 % LAB HEMETOLOGY METHOD 04/16/2025 2:28 PM [facility] Lymphocytes Relative 26.1 % LAB HEMETOLOGY METHOD 04/16/2025 2:28 PM [facility] Monocytes Relative 7.7 % LAB HEMETOLOGY METHOD 04/16/2025 2:28 PM [facility] Eosinophils Relative 1.8 % LAB HEMETOLOGY METHOD 04/16/2025 2:28 PM [facility] Basophils Relative 0.5 % LAB HEMETOLOGY METHOD 04/16/2025 2:28 PM [facility] Immature Granulocytes Relative 0.4 % LAB HEMETOLOGY METHOD 04/16/2025 2:28 PM [facility] Neutrophils Absolute 3.47 1.50 - 7.00 K/mcL LAB HEMETOLOGY METHOD 04/16/2025 2:28 PM EDT [facility] Lymphocytes Absolute 1.43 1.00 - 5.00 K/mcL LAB HEMETOLOGY METHOD 04/16/2025 2:28 PM EDT [facility] Monocytes Absolute 0.42 0.20 - 1.00 K/mcL LAB HEMETOLOGY METHOD 04/16/2025 2:28 PM EDT [facility] Eosinophils Absolute 0.10 0.00 - 0.50 K/[facility] LAB HEMETOLOGY METHOD 04/16/2025 2:28 PM EDT [facility] Basophils Absolute 0.03 0.00 - 0.20 K/mcL LAB HEMETOLOGY METHOD 04/16/2025 2:28 PM EDT [facility] Immature Granulocytes Absolute 0.02 0.00 - 0.03 K/mcL LAB HEMETOLOGY METHOD 04/16/2025 2:28 PM EDT [facility] Blood Venous blood specimen / Unknown Venipuncture / Unknown 04/16/2025 11:01 AM EDT 04/16/2025 11:01 AM EDT us Jeybaylee Blaircaren PRESIDENT CEO & FOUNDER LAB BLOOD ORDERABLES Final Resul t [facility] [address] [place] [address], * Iron and TIBC (04/16/2025 11:01 AM EDT) Iron 88 40 - 150 mcg/dL LAB CHEMISTRY METHOD 04/16/2025 3:23 PM EDT [facility] TIBC 325 250 - 450 mcg/dL LAB CHEMISTRY METHOD 04/16/2025 3:23 PM EDT [facility] Iron Saturation 27 15 - 50 % LAB CHEMISTRY METHOD 04/16/2025 3:23 PM EDT [facility] Blood Venous blood specimen / Unknown Venipuncture / Unknown 04/16/2025 11:01 AM EDT 04/16/2025 11:01 AM EDT us Dennise Mckeon PRESIDENT CEO & FOUNDER LAB BLOOD ORDERABLES Final Resul t Performing Organization Address City/[facility]/ZIP Co de Phone Number [facility] [address] [place] [address], * (ABNORMAL) Vitamin D 25 hydroxy (04/16/2025 11:01 AM EDT) Vit D, 25-Hydroxy 24.6(L) 30.0 - 80.0 ng/mL LAB CHEMISTRY METHOD 04/16/2025 3:54 PM EDT [facility] Blood Venous blood specimen / Unknown Venipuncture / Unknown 04/16/2025 11:01 AM EDT 04/16/2025 11:01 AM EDT Jeybaylee Mckeon PRESIDENT CEO & FOUNDER LAB BLOOD ORDERABLES Final Resul t Performing Organization Address [facility] Co de Phone Number [facility] [address] [place] [address], * C-reactive protein (04/16/2025 11:01 AM EDT) C-Reactive Protein <0.29 <=0.50 mg/dL LAB CHEMISTRY METHOD 04/16/2025 3:23 PM EDT [facility] Blood Venous blood specimen / Unknown Venipuncture / Unknown 04/16/2025 11:01 AM EDT 04/16/2025 11:01 AM EDT us Dennise Mckeon PRESIDENT CEO & FOUNDER LAB BLOOD ORDERABLES Final Resul t Performing Organization Address City/[facility]/ZIP Co de Phone Number [facility] [address] [place] [address], [place] [phone] * Thyroid stimulating hormone (04/16/2025 11:01 AM EDT) [facility] TSH 0.92 0.40 - 4.00 mcIU/mL LAB CHEMISTRY METHOD 04/16/2025 3:54 PM EDT [facility] Blood Venous blood specimen / Unknown Venipuncture / Unknown 04/16/2025 11:01 AM EDT 04/16/2025 11:01 AM EDT us Dennise Mckeon PRESIDENT CEO & FOUNDER LAB BLOOD ORDERABLES Final Resul t [facility] [address] [place] [address], [place] [phone] * Magnesium (04/16/2025 11:01 AM EDT) [facility] Magnesium 2.1 1.9 - 2.6 mg/dL LAB CHEMISTRY METHOD 04/16/2025 2:57 PM EDT [facility] Blood Venous blood specimen / Unknown Venipuncture / Unknown 04/16/2025 11:01 AM EDT 04/16/2025 11:01 AM EDT Dennise Mckeon PRESIDENT CEO & FOUNDER LAB BLOOD ORDERABLES Final Resul t [facility] [address] [place] [address], [place] [phone] * Hemoglobin A1c (04/16/2025 11:01 AM EDT) [facility] Hemoglobin A1C 5.3 <6.5 % LAB CHEMISTRY METHOD 04/16/2025 10:29 PM EDT [facility] Mean Bld Glu Estim. 105 mg/dL LAB CHEMISTRY METHOD 04/16/2025 10:29 PM EDT [facility] Blood Venous blood specimen / Unknown Venipuncture / Unknown 04/16/2025 11:01 AM EDT 04/16/2025 11:01 AM EDT us Dennise Mckeon PRESIDENT CEO & FOUNDER LAB BLOOD ORDERABLES Final Resul t Performing Organization Address [facility]/ZIP Co de Phone Number [facility] [address] [place] [address], [place] [phone] * (ABNORMAL) Folate (04/16/2025 11:01 AM EDT) [facility] Folate 19.2(H) 2.8 - 17.0 ng/ml LAB CHEMISTRY METHOD 04/16/2025 3:23 PM EDT [facility] Blood Venous blood specimen / Unknown Venipuncture / Unknown 04/16/2025 11:01 AM EDT 04/16/2025 11:01 AM EDT us Dennise Mckeon PRESIDENT CEO & FOUNDER LAB BLOOD ORDERABLES Final Resul t Performing Organization Address [facility]/ZIP Co de Phone Number [facility] [address] [place] [address], [place] [phone] * Ferritin (04/16/2025 11:01 AM EDT) [facility] Ferritin 100 8 - 252 ng/mL LAB CHEMISTRY METHOD 04/16/2025 3:23 PM EDT [facility] Blood Venous blood specimen / Unknown Venipuncture / Unknown 04/16/2025 11:01 AM EDT 04/16/2025 11:01 AM EDT us Dennise Mckeon PRESIDENT CEO & FOUNDER LAB BLOOD ORDERABLES Final Resul t Performing Organization Address City/[facility]/ZIP Co de Phone Number [facility] [address] [place] [address], [place] [phone] * Vitamin B12 (04/16/2025 11:01 AM EDT) Vitamin B-12 500 250 - 900 pcg/mL LAB CHEMISTRY METHOD 04/16/2025 3:23 PM T [facility] Blood Venous blood specimen / Unknown Venipuncture / Unknown 04/16/2025 11:01 AM EDT 04/16/2025 11:01 AM EDT us Dennise Mckeon NP LAB BLOOD ORDERABLES Final Resul t [facility] [address] [place] [address], [place] [phone] * (ABNORMAL) Comprehensive metabolic panel (04/16/2025 11:01 AM EDT) Sodium 138 133 - 145 mmol/L LAB CHEMISTRY METHOD 04/16/2025 3:23 PM [facility] Potassium 4.0 3.5 - 5.5 mmol/L LAB CHEMISTRY METHOD 04/16/2025 3:23 PM [facility] Chloride 106 96 - 110 mmol/L LAB CHEMISTRY METHOD 04/16/2025 3:23 PM [facility] CO2 24 21 - 32 mmol/L LAB CHEMISTRY METHOD 04/16/2025 3:23 PM [facility] Anion Gap 8 3 - 11 LAB CHEMISTRY METHOD 04/16/2025 3:23 PM [facility] Glucose 93 70 - 100 mg/dL LAB CHEMISTRY METHOD 04/16/2025 3:23 PM [facility] BUN 14 5 - 25 mg/dL LAB CHEMISTRY METHOD 04/16/2025 3:23 PM [facility] Creatinine 0.61 0.50 - 1.10 mg/dL LAB CHEMISTRY METHOD 04/16/2025 3:23 PM [facility] eGFR 104 >=60 mL/min/1. 73m2 LAB CHEMISTRY METHOD 04/16/2025 3:23 PM [facility] Comment:Calculation based on the Chronic Kidney Disease Epidemiology Collaboration (CKD-EPI) equation refit without adjustment for race. BUN/Creatinine Ratio 23.0 LAB CHEMISTRY METHOD 04/16/2025 3:23 PM EDT [facility] Calcium 9.3 8.5 - 10.5 mg/dL LAB CHEMISTRY METHOD [facility]25 [facility] (SGOT) 13 10 - 42 unit/L LAB CHEMISTRY METHOD 04/16/2025 3:23 PM T [facility] ALT (SGPT) 24 10 - 60 unit/L LAB CHEMISTRY METHOD 04/16/2025 3:23 PM [facility] Alkaline Phosphatase 122(H) 42 - 121 unit/L LAB CHEMISTRY METHOD 04/16/2025 3:23 PM [facility] Total Protein 7.0 6.0 - 8.0 g/dL LAB CHEMISTRY METHOD 04/16/2025 3:23 PM EDT [facility] Albumin 3.9 3.2 - 5.0 g/dL LAB CHEMISTRY METHOD 04/16/2025 3:23 PM [facility] Total Bilirubin 0.4 0.0 - 1.4 mg/dL LAB CHEMISTRY METHOD 04/16/2025 3:23 PM T [facility] Blood Venous blood specimen / Unknown Venipuncture / Unknown 04/16/2025 11:01 AM EDT 04/16/2025 11:01 AM EDT us Dennise Mckeon NP LAB BLOOD ORDERABLES Final Resul t [facility] [address] [place] [address], [place] [phone] * MG Mammo Digital Screening w Gareth bilat (12/25/2024 7:36 AM EST) Anatomical Region Laterality Modality Breast Bilateral Mammography 12/25/2024 11:2 2 AM EST Impressions 12/25/2024 11:24 AM EST No mammographic evidence for malignancy. BI-RADS CATEGORY: 1 - NEGATIVE RECOMMENDATION: Screening bilateral mammogram is recommended in 1 year. Mammo Location: [facility], [address] [place] [address], [id number], . -------- FINAL REPORT -------- Dictated By: Jeri Kelly Dictated Date: 12/25/2024 11:22 ET Assigned Physician: Jeri Kelly Reviewed and Electronically Signed By: Jeri Kelly Signed Date: 12/25/2024 11:24 ET Workstation ID: [id number] Transcribed By: Self Edit Transcribed Date: 12/25/2024 [...] evidence of suspicious mass or architectural distortion. No worrisome calcifications are evident. There has been no significant change from prior exam(s). BREAST DENSITY: B - [...] is recommended in 1 year. Mammo Location: [facility], [address] [place] [address], [id number], . -------- FINAL REPORT -------- Dictated By: Jeri Kelly Dictated Date: 12/25/2024 11:22 ET Assigned Physician: Jeri Kelly Reviewed and Electronically Signed By: Jeri Kelly Signed Date: 12/25/2024 11:24 ET Workstation ID: [id number] Transcribed By: Self Edit Transcribed Date: 12/25/2024 11:22 ET Dahiana Townsend MD IM BI PROCEDURES Final Result * (ABNORMAL) Lipid panel with reflex to direct LDL (10/05/2024 8:16 AM EST) Cholesterol 219(H) 0 - 200 mg/dL LAB CHEMISTRY METHOD 10/05/2024 10:37 AM [facility] Triglycerides 67 0 - 150 mg/dL LAB CHEMISTRY METHOD 10/05/2024 10:37 AM [facility] HDL 74 >=40 mg/dL LAB CHEMISTRY METHOD 10/05/2024 10:37 AM [facility] LDL Calculated 132(H) 0 - 100 mg/dL LAB CHEMISTRY METHOD 10/05/2024 10:37 AM [facility] VLDL Cholesterol Sourav 13.4 mg/dL LAB CHEMISTRY METHOD 10/05/2024 10:37 AM [facility] Non HDL Chol. (LDL+VLDL) 145(H) <145 mg/dL LAB CHEMISTRY METHOD 10/05/2024 10:37 AM [facility] Chol/HDL Ratio 3.0 0.0 - 4.4 LAB CHEMISTRY METHOD 10/05/2024 10:37 AM [facility] Blood Venous blood specimen / Unknown Venipuncture / Unknown 10/05/2024 8:16 AM EST 10/05/2024 8:16 AM EST Gina MORENO LAB BLOOD ORDERABLES Fin al Result [facility] [place] [address] [place] [address], [place] [phone] * Colonoscopy (09/30/2021) Pathologist [facility] Colonoscopy no interpretation , abstracted Anatomical Region Laterality Modality Other Historical Provider HEALTH MAINTENANCE Final Result * Cervical Cancer Screening: HPV (09/17/2021) [facility] Cervical Cancer Screening: HPV negative, abstracted Historical Provider HEALTH MAINTENANCE Final Result from Last 3 Months or Most Recently Relevant to Health Maintenance Insurance [facility] [address] Care Teams Orthotics Technician Relationship Specialty Start Date End Date Dahiana Townsend MD [address] [facility] [address] [place] [address] PCP - General Internal Medicine 06/05/21
--- OUTSIDE RECORDS SUMMARY | 2025-07-17 09:50 | XMS_ITS | Encounter Summary ---
Author Organization [facility] Address [address] [place] [address] Care Team Providers Care Jewel Bearing Polisher Name Role Phone Dahiana Townsend MD Primary Care Provider [phone] Reason for Visit * Reason Onset Date Comments Medication 02/15/2023 Encounter Details Date Type Department Care Team Description 02/15/2023 Telephone [facility] [address] [phone] Bon Trujillo DPM [address] [address] Medication Social History Tobacco Use Types Packs/Day [...] suspected to have Coronavirus/COVID-19? No / Unsure 02/15/2023 2:31 PM EDT documented as of this encounter Miscellaneous Notes * Telephone Encounter - Alyson Madrid - 02/25/2023 11:17 AM EDT Rox is calling today stating she was waiting for a call back to see if Dr. Trujillo could prescribe her something for her pain, she states she did speak with Lorene and thinks things might have gotten misunderstood, Rox states she is still in a lot of pain and the tylenol isn't working. Rox would like a call back lam * Telephone Encounter - Lorene Damian M.A. - 02/16/2023 3:33 PM EDT Spoke with pt. States pain is better in boot. She wakes in the middle of the night. She is taking tylenol. I asked if she was able to alternate with ibuprofen, she states she uses turmeric as an anti-inflammatory. * Telephone Encounter - Jannette Leary - 02/15/2023 3:22 PM EDT Received call from patient, she is stating that she had an appt this afternoon, and she was not sure if Dr Trujillo can send a script for pain for her R Foot. She states it is excruciating pain . She would like her Pharmacy changed to [facility]. Please advise. She can be reached at [phone]. Thanks. documented in this encounter Plan of Treatment Not on file documented as of this encounter Visit Diagnoses Not on filedocumented in this encounter Care Teams Jewel Bearing Polisher Relationship Specialty Start Date End Date Dahiana Townsend MD PCP - General Internal Medicine 06/05/21 documented as of this encounter
== END 2025-07-17 09:57 | disposition home or self-care (01) ==
LOC: HO.PMC 09:18
PROVIDERS: PCP Internal Medicine; Visit Provider Internal Medicine
DX: M54.81 Occipital neuralgia (principal); M47.812 Spondylosis without myelopathy or radiculopathy, cervical region; M54.12 Radiculopathy, cervical region
CPT/HCPCS: 99214

== ENCOUNTER → 2025-07-17 09:17 | Outpatient (BNVA) | payer OTHER, SELFPAY | PROVIDERS: PCP Internal Medicine; Visit Provider Internal Medicine | DX: M54.81 Occipital neuralgia (principal); M47.812 Spondylosis without myelopathy or radiculopathy, cervical region | CPT/HCPCS: 99212 ==

== ENCOUNTER 2025-08-12 09:00 | Outpatient (AMB) | payer OTHER, SELFPAY ==
--- OUTSIDE RECORDS SUMMARY | 2022-12-11 01:00 | XMS_ITS | Encounter Summary ---
Author Organization [facility] Address [address] [address] Phone Care Team Providers Care Instrument Repairer Helper Name Role Phone Unavailable Primary Care Provider Unavailabl e Encounter Details Date Type Department Care Team (Late st Contact Info) Description 12/11/2022 Hospital Encounter [facility] [address] [place] [phone] Clint Graham MD [address] [place] [phone] [email or web address] [place]. [facility] Social History Tobacco Use Types Packs/Day Years Used Date Smoking Tobacco: Never Smokeless Tobacco: Never Alcohol Use Standard Drinks/Week Comments Yes 0 (1 standard drink = 0.6 oz pur e alcohol) once a year Education Answer Date Recorded Are you interested in more education? Not on ayo e 09/27/2023 Are you concerned about learning? [...] It is not the complete legal health record.[facility]
--- OUTSIDE RECORDS SUMMARY | 2023-09-01 | XMS_ITS | Encounter Summary ---
Author Organization [facility] Address [address] [address] Phone Care Team Providers Care Hemotherapist Name Role Phone Dahiana Townsend MD Primary Care Provider Encounter Details Date Type Department Care Team (Late st Contact Info) Description 09/01/2023 Hospital Encounter [facility] [address] [place] [phone] Clint Graham MD [address] [place] [phone] [email or web address] Social History Tobacco Use Types [...] Procedure Name Priority Date/Time Associated Diagnosis Comments CT HEAD OUTSIDE (NO INTERPRETATION) Routine 09/01/2023 12:00 AM EDT documented in this encounter Results * CT Head Outside (No Interpretation) (09/01/2023 12:00 AM EDT) Narrative [facility]AC[facility] - 10/03/2023 1:13 PM EST This study is for PACS storage only and not for interpretation. us Clint Graham MD IMG OUTSIDE IMAGING W/OUT IN TERPRETATION Final Result [facility] documented in this encounter Visit Diagnoses Not on filedocumented in this encounter Care Teams Hemotherapist Relationship Specialty Start Date End Date Dahiana Townsend MD 175 [facility] 200 [place] [phone] PCP - General 09/01/23 09/21/23 documented as of this encounter Additional Source Comments The information contained in this document represents components of the legal health record. It is not the complete legal health record.[facility]
--- OUTSIDE RECORDS SUMMARY | 2023-09-01 00:05 | XMS_ITS | Encounter Summary ---
Author Organization [facility] Address [address] [place] [phone] Phone Care Team Providers Care Customer Advisor Specialist Name Role Phone Dahiana Townsend MD Primary Care Provider Encounter Details Date Type Department Care Team (Late st Contact Info) Description 09/01/2023 12:05 AM EDT Hospital Encounter [facility] [address] [place] [phone] Clint Graham MD [address] [place] [phone] [email or web address] Social History Tobacco Use Types Packs/Day Years [...] on filedocumented in this encounter Care Teams Customer Advisor Specialist Relationship Specialty Start Date End Date Dahiana Townsend MD 175 [facility] 200 [place] [phone] PCP - General 09/01/23 09/21/23 documented as of this encounter Additional Source Comments The information contained in this document represents components of the legal health record. It is not the complete legal health record.[facility]
--- OUTSIDE RECORDS SUMMARY | 2023-09-01 00:10 | XMS_ITS | Encounter Summary ---
Author Organization [facility] Address [address] [place] [phone] Phone Care Team Providers Care Software Tester Name Role Phone Dahiana Townsend MD Primary Care Provider Encounter Details Date Type Department Care Team (Late st Contact Info) Description 09/01/2023 12:10 AM EDT Hospital Encounter [facility] [address] [place] [phone] Clint Graham MD [address] [place] [phone] [email or web address] Social History Tobacco Use Types Packs/Day [...] on filedocumented in this encounter Care Teams Software Tester Relationship Specialty Start Date End Date Dahiana Townsend MD 175 [facility] [address] [place] [address] PCP - General 09/01/23 09/21/23 documented as of this encounter Additional Source Comments The information contained in this document represents components of the legal health record. It is not the complete legal health record.[facility]
--- OUTSIDE RECORDS SUMMARY | 2025-08-08 08:30 | XMS_ITS | Encounter Summary ---
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 Eloina Shaikh PA [address] [place] [address] Phone: tel: fax: Referral ID Status Reason Start Date Expiration Date Visits Requested Visits Authorized [id number] Authorized Specialty Services Required 05/08/2025 05/08/2026 1 21 Encounter Details Date Type Department Care Team (Latest Contact Info) Description 08/08/2025 8:30 AM EDT Treatment [facility] Outpatient [address] [address] Gumaro Hickman, CAN CRIMPER 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 For example, child psychiatrist or elderly care for an older adult? [...] as of this encounter Progress Notes * Gumaro Hickman PTA - 08/08/2025 8:30 AM EDT [facility] - Outpatient PHYSICAL THERAPY DAILY TREATMENT NOTE - OP Date: 08/08/2025 Visit Number: 1 Patient Name: Rox Yan : 1965 Age: 60 y.o. Gender: female Diagnosis: ICD-10-CM ICD-9-CM 1. 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 90 tablet 3 baclofen (LIORESAL) 10 mg tablet Take 1 tablet (10 mg total) by mouth at bedtime as needed for muscle spasms. 30 tablet 11 calcium carbonate-vitamin D3 500 mg-2.5 mcg (100 [...] capsule Take 60 mg by mouth daily. LORazepam (ATIVAN) 0.5 mg tablet Take 2 tablets (1 mg total) by mouth 1 (one) time injection for anxiety for up to 1 dose. Max Daily Amount: 1 mg 2 tablet 0 MAGNESIUM CHELATE, MALATE ORAL Take by mouth 2 times daily. OMEGA-3 FATTY ACIDS ORAL Take by mouth 2 times daily. psyllium seed (PSYLLIUM ORAL) Take by mouth. No current facility-administered medications on file prior to visit. Allergies: is allergic to sulfa (sulfonamide antibiotics), other, and solanum- nightshade vegetables. Precautions: none Fall risk: No SUBJECTIVE Subjective Report: Patient reports she is doing well Chart Reviewed: Yes Pain: no current sxs TREATMENT INTERVENTION: Therapeutic Exercise: Nustep L6 x 6 min lower extremity and upper extremity Blue tubing rows 2 x 20 blue theraband shoulder extension single x 20 each Supine snow angels x 12 Quadruped chin tucks x 8, 5 sec hold -held Levator stretching x3 Manual Therapy: Supine suboccipital release Supine cervical paraspinals strumming, R SCM soft tissue release Supine passive L cervical SB stretch 2 x 30 sec (to stretch SCM, [facility], [place]) Home exercise program: Access Code: [email or web address] - Seated Cervical Retraction - 1 x daily - 7 x weekly - 1 sets - 10 reps - 5 sec hold - Seated Upper Trapezius Stretch - 1 x daily - 7 x weekly - 1 sets - 3 reps - 20 sec hold - Gentle Levator Scapulae Stretch - 1 x daily - 7 x weekly - 1 sets - 3 reps - 20 sec hold - Quadruped Cervical Retraction - 1 x daily - 7 x weekly - 1 sets - 10 reps - 5 sec hold - Shoulder External Rotation and Scapular Retraction with Resistance - 1 x daily - 7 x weekly - 2 sets - 10 reps ASSESSMENT/Response to Treatment Good \left elbow sore with resisted exercises , right shldr pops with elevation Patient Education: Education provided: home exercise program Education Provided To: Patient utilizing Explanation mode(s) of education Response to Education: Verbal Understanding PLAN POC Development/Review: No Change in the Plan of Care; Participants: Patient Interventions Time Entry: Modalities: Therapeutic procedures: Total Treatment Time: 30 Documentation completed by Gumaro Hickman PTA documented in this encounter Plan of Treatment Upcoming Encounters Date Type Department Care Team (Late st Contact Info) Description 08/12/2025 12:00 PM EDT Treatment [address] [phone] Marion Ying, PT 08/13/2025 9:00 AM EDT Consult General Surgery [facility] 175 [facility] [address] [place] [phone] Carolina Salguero MD [address] [place] [phone] 08/14/2025 2:30 PM EDT Treatment [facility] [address] [address] Marion Ying, PT 08/16/2025 1:00 PM EDT Treatment [facility] [address] [phone] Marion Ying, PT 08/20/2025 7:30 AM EDT Treatment [facility] [address] [phone] Marion Ying, PT 08/22/2025 8:30 AM EDT Office Visit Orthopedic Surgery [facility] [address] [phone] Bon Trujillo DPM [address] [phone] 10/14/2025 8:15 AM EST Office Visit Internal Medicine [facility] [address] [phone] Dahiana Townsend MD [address] [phone] documented as of this encounter Visit Diagnoses Diagnosis 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
--- OUTSIDE RECORDS SUMMARY | 2025-08-10 10:30 | XMS_ITS | Encounter Summary ---
Author Organization [facility] Address [address] [place] [address] Care Team Providers Care Talend Developer Name Role Phone Dahiana Townsend MD Primary Care Provider [phone] Reason for Referral * Imaging (Routine) - Pending Review Specialty Diagnoses / Procedures Referred By Contac t Referred To Contact Radiology Diagnoses Ganglion cyst Plantar fasciitis Tendonitis, Achilles, left Procedures MR Ankle wo and w Contrast Left Bon Trujillo DPM [address] [address] Phone: tel: fax: [facility] Referral ID Status Reason Start Date Expiration Date V isits Requested Visits Authorized [id number] Pending Review 07/10/2025 07/10/2026 1 1 Reason for Visit * Imaging (Routine) - Pending Review Specialty Diagnoses / Procedures Referred By Mika t Referred To Contact Radiology Diagnoses Ganglion cyst Plantar fasciitis Tendonitis, Achilles, left Procedures MR Ankle wo and w Contrast Left Bon Trujillo DPM [address] [facility] [address] [address] Phone: tel: fax: [facility] Referral ID Status Reason Start Date Expiration Date V isits Requested Visits Authorized [id number] Pending Review 07/10/2025 07/10/2026 1 1 Encounter Details Date Type Department Care Team (Latest Contact Info) Description 08/10/2025 10:30 AM EDT - 08/10/2025 11:59 PM EDT Hospital Encounter [facility] MRI [address] [place] [phone] Ganglion cyst; Plantar fasciitis; Tendonitis, Achilles, left Discharge Disposition: Home or Self Care Social History Tobacco Use Types Packs/Day Years [...] your loved ones. For example, child welfare caseworker or elderly care for an older adult? [...] PM EST documented as of this encounter Medications at Time of Discharge B complex tabletIndications :Vitamin B12 deficiency Take 1 tablet by mouth 1 (one) time each day. 90 tablet 3 04/29/2025 baclofen (LIORESAL) 10 mg tabletIndications :Muscle spasm Take 1 tablet (10 mg total) by mouth at bedtime as needed for muscle spasms. 30 tablet 11 04/29/2025 calcium carbonate-vitamin D3 500 mg-2.5 mcg (100 unit) tablet,chewableIn dications:Vitamin D deficiency Chew 1 tablet 1 (one) time each day. 90 tablet 3 04/18/2025 carBAMazepine (CARBATROL) 300 mg 12 hr capsule Take 1 capsule (300 mg total) by mouth 2 (two) times a day. 12/30/2023 cholecalciferol (VITAMIN D-3) 50 mcg (2,000 unit) [...] psyllium seed (PSYLLIUM ORAL) Take by mouth. documented as of this encounter Discharge Disposition Disposition Code Departure Means Destination Home or Self Care documented in this encounter Plan of Treatment Upcoming Encounters Date Type Department Care Team (Late st Contact Info) Description 08/12/2025 12:00 PM EDT Treatment [address] [phone] Marion Ying, PT 08/13/2025 9:00 AM EDT Consult General Surgery [address] [place] [phone] Carolina Salguero MD [address] [place] [phone] 08/14/2025 2:30 PM EDT Treatment [address] [phone] aMrion Ying, PT 08/16/2025 1:00 PM EDT Treatment [address] [phone] Marion Ying, PT 08/20/2025 7:30 AM EDT Treatment [address] [phone] Marion Ying, PT 08/22/2025 8:30 AM EDT Office Visit Orthopedic Surgery [facility] [address] [phone] Bon Trujillo DPM [address] [phone] 10/14/2025 8:15 AM EST Office Visit Internal Medicine [address] [phone] Dahiana oTwnsend MD [address] [phone] documented as of this encounter Procedures Procedure Name Priority Date/Time Associated Diagnosis Comments ANKLE WO AND W CONTRAST LEFT Routine 08/10/2025 12:06 PM EDT Ganglion cyst Plantar fasciitis Tendonitis, Achilles, left documented in this encounter Results * MR Ankle wo and w Contrast Left (08/10/2025 12:06 PM EDT) Anatomical Region Laterality Modality Lower Extremities Left Magnetic Reson ance 08/12/2025 4:28 AM EDT Impressions 08/12/2025 4:35 AM EDT 1. 2.4 x 0.7 cm ganglion at the level of the anterior, dorsal talonavicular articulation. 2. Plantar fasciitis with partial thickness tearing of the medial cord. -------- FINAL REPORT -------- Dictated By: Rozina Bullock Dictated Date: 08/12/2025 04:28 ET Assigned Physician: Rozina Bullock Reviewed and Electronically Signed By: Rozina Bullock Signed Date: 08/12/2025 04:35 ET Workstation ID: [id number] Transcribed By: Self Edit Transcribed Date: 08/12/2025 04:28 ET Narrative 08/12/2025 4:35 AM EDT INDICATION: Achilles tendinitis anterior ankle ganglion cyst COMPARISON: None TECHNIQUE: Multiplanar, multisequence MRI was performed of the left ankle without and with the uneventful intravenous contrast administration of 15 mL Dotarem. FINDINGS: Bone: No acute fracture or dislocation. 3 mm osteochondral lesion along the lateral talar dome. Posterior plantar calcaneal spur. Achilles tendon enthesophyte formation. Heterogeneous bone marrow signal. Tendons: Anterior extensor tendons are intact. Mild posterior tibial tendinosis. Peroneal tenosynovitis. Achilles tendon is intact. Ligaments:Signal heterogeneity of the deltoid fibers in keeping with sprain. Spring ligament complex is intact. ATFL and PTFL are intact. Miscellaneous:Marker at the site of patient's pain. Deep to the marker, there is a T1 hypointense, T2 fat sat hyperintense lesion measuring approximately 2.4 x 0.7 cm which demonstrates peripheral enhancement in keeping with a ganglion at the level of the anterior, dorsal talonavicular articulation. Sinus Tarsi and tarsal tunnel are unremarkable. Thickening of the plantar fascia in keeping with plantar fasciitis with mild partial thickness tearing of the medial cord. Left ankle joint fluid. No muscle atrophy or fatty infiltration. Procedure Note Rozina Bullock MD - 08/12/2025 INDICATION: Achilles tendinitis anterior ankle ganglion cyst COMPARISON: None TECHNIQUE: Multiplanar, multisequence MRI was performed of the left anklewithout and with the uneventful intravenous contrast administration of 15mL Dotarem. FINDINGS: Bone: No acute fracture or dislocation. 3 mm osteochondral lesion alongthe lateral talar dome. Posterior plantar calcaneal spur. Achillestendon enthesophyte formation. Heterogeneous bone marrow signal. Tendons: Anterior extensor tendons are intact. Mild posterior tibialtendinosis. Peroneal tenosynovitis. Achilles tendon is intact. Ligaments:Signal heterogeneity of the deltoid fibers in keeping withsprain. Spring ligament complex is intact. ATFL and PTFL are intact. Miscellaneous:Marker at the site of patient's pain. Deep to the marker,there is a T1 hypointense, T2 fat sat hyperintense lesion measuringapproximately 2.4 x 0.7 cm which demonstrates peripheral enhancement inkeeping with a ganglion at the level of the anterior, dorsal talonaviculararticulation. Sinus Tarsi and tarsal tunnel are unremarkable. Thickening of the plantar fascia in keeping with plantar fasciitis withmild partial thickness tearing of the medial cord. Left ankle joint fluid. No muscle atrophy or fatty infiltration. IMPRESSION: 1. 2.4 x 0.7 cm ganglion at the level of the anterior, dorsaltalonavicular articulation. 2. Plantar fasciitis with partial thickness tearing of the medial cord. -------- FINAL REPORT -------- Dictated By: Rozina Bullock Dictated Date: 08/12/2025 04:28 ET Assigned Physician: Rozina Bullock Reviewed and Electronically Signed By: Rozina Bullock Signed Date: 08/12/2025 04:35 ET Workstation ID: [id number] Transcribed By: Self Edit Transcribed Date: 08/12/2025 04:28 ET Bon Trujillo DPM IMG MRI PROCEDURES Final Result documented in this encounter Visit Diagnoses Diagnosis Ganglion cyst Unspecified ganglion Plantar fasciitis Plantar fascial fibromatosis Tendonitis, Achilles, left documented in this encounter Administered Medications Inactive Administered Medications - up to 3 most recent administrations Medication Order MAR Action Action Date Dose Rate Site gadoterate meglumine (CLARISCAN, DOTAREM) injection 15 mL 15 mL, intravenous, Once in imaging, Starting on 08/10/25 at 1206, For 1 dose Given 08/10/2025 12:12 PM EDT 15 mL documented in this encounter Orders Medications Ordered That Robert ht Not Have Been Administered Count Last Ordered Date First Ordered Date gadoterate meglumine (HASEEB CAN, DOTAREM) injection 15 mL 1 08/10/2025 documented in this encounter Additional Health Concerns Assessment Noted Time PHQ-9 Depression Total Score: 4 10/07/20 24 10:52 PM EST documented as of this encounter Care Teams Talend Developer Relationship Specialty Start Date End Date Dahiana Townsend MD [address] [place] [phone] PCP - General Internal Medicine 06/05/21 documented as of this encounter
[2025-08-12 09:07] VITALS: BP 118/66; PULSE 58; O2SAT 100; BMI 25.1
--- NOTE | 2025-08-12 09:07 | A.OFFVIS_ITS ---
Vital Signs 08/12/25 09:07 Height 5 ft 5 in Weight 151 lb 2 oz BMI 25.1 BP 118/66 Blood Pressure Location Rt brachial Position Sitting Pulse 58 Pulse Source Pulse Oximeter Pulse Oximetry (%) 100 Oxygen Delivery Method Room Air Intake Visit Reasons: Follow up Intake Note: Follow up Spondylosis without myelopathy or radiculopathy, cervical region and neuralgia Newspaper Library Manager Required: No Accompanied by: Self / Same As Patient Allergies Sulfa (Sulfonamide Antibiotics) Allergy (Severe, Verified 08/12/25 09:07) Anaphylaxis Medication List - Last Reconciled 08/12/25 by Lauren Ravi MD alpha lipoic acid 300 mg PO DAILY ascorbic acid (vitamin C) 500 mg PO DAILY baclofen 5 - 10 mg PO BEDTIME PRN Ca carb-D3-mag mn-spd-ypfo-Zn 300 mg-20 mcg- 25 mg-0.5 mg 1 tab PO DAILY carbamazepine ER (Carbatrol) 1 tab qam and 1-2 tabs qhs orally 2 times a day; fluticasone propionate 50 mcg/actuation sprays intranasal lidocaine 5% 1 patch topical DAILY omega 6-qmd-kph-fish oil 300-1,000 mg (Fish Oil) 1 cap PO DAILY HPI Comments Details: 60year old female with h/o cervical- spondylosis and Trigeminal Neuralgia like symptoms presents for an follow up.she was seen at pain management - had c ervical spine injections, PT , acupuncture and chiropractor and is helping. History form 04/2025- she reports burning sensation in her right hand dorsal surface - when her sleeve touches, she also has an abnormal sensation in her midback and her scalp tenderness has worsened.. she is doing good tegretol 200mg bid she tried 300mg bid but had tremors and did not provide additional benefit. PT has helped in the past for her neck and head. Denies vision changes nausea and vomiting, vertigo and falls. She wears trifocals so vision is at baseline blurry, she sees her baker operator automatic regularly. She also had 3 episodes of Shingles years ago and it all affected her L.side- 20 years ago PENDING SALE TO [facility] Medical History Paresthesias Trigeminal neuralgia of left side of face Trigeminal neuralgia Chronic migraine with aura Cervical spondylosis Eczema Fibromyalgia Surgical History History of nasal surgery H/O adenoidectomy History of appendectomy Family History Sister Breast cancer Sister Cervical cancer Social History Alcohol intake: current Alcohol intake frequency: holidays/special occasions only Patient Tobacco Use Status: Never used Tobacco Current occupational status: employed 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, 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 Review of Systems ENT Reports Normal hearing present Neuro Reports Normal hearing present Physical Exam Vital Signs: Last Vital Signs Pulse 58 08/12/25 09:07 BP 118/66 08/12/25 09:07 Pulse Ox 100 08/12/25 09:07 Oxygen Delivery Method Room Air 08/12/25 09:07 BMI result Body Mass Index 25.1 Const General: cooperative, comfortable and no acute distress Orientation/consciousness: patient oriented x3 HEENT Head: Yes normal to inspection Mouth: tongue normal Eyes General: appearance normal, both eyes and all related structures Pupils: Equal, round and reactive pupils present, Pupils normal by confrontation and Pupil accommodation reflex normal Neck Neck: Yes full ROM (limited ROM to left.) and Yes supple Resp Effort & Inspection: normal respiratory effort and able to speak in complete sentences Skin General skin exam: no rashes or lesions noted Neuro General: patient oriented x3 Cranial nerves: Yes CN's II-XII intact bilaterally, Yes Facial sensation intact/muscles of mastication intact, Yes Equal, round and reactive pupils prese nt, Yes Normal accommodation reflex present, Yes Normal facial strength present, Yes Midline tongue present, Yes Symmetric palate elevation present, Yes Normal hearing present, Yes Ability to bilaterally rotate head present and Yes Ability to bilaterally elevate shoulders present Gait exam (Neuro): Normal gait present Motor exam (neuro): 5/5 motor strength present throughout (weakness on the left 3/5 upper ext.) Coordination: [id number] test normal Psych Appearance: grossly normal Affect: normal affect Attitude: cooperative Insight: Good insight present (Psych) Judgement: Good judgement present (Psych) Assessment & Plan Assessment & Plan (1) Paresthesias: Comment: Do not see any evidence of ongoing zoster with no rash in 15-20 years. Antibodies only useful for determining prior infection. Code(s): R20.2 - Paresthesia of skin Category: Medical (2) Trigeminal neuralgia of left side of face: Code(s): G50.0 - Trigeminal neuralgia Category: Medical (3) Cervical spondylosis: Code(s): M47.812 - Spondylosis without myelopathy or radiculopathy, cervical region Category: Medical Plan continue carbamazapine ER 100mg qam and 200mg qhs ( can decrease to 100mg bid ) F/u [facility] Follow up in 6 months. Medications: New carbamazepine ER (Carbatrol) 1 tab qam and 1-2 tabs qhs orally 2 times a day; 90 caps 6RF Discontinued carbamazepine ER Discontinued Reason: Doctor's Order 200 mg PO BID 30 days 60 caps 6RF Coding Level of Care Code Est Pt Level 4 (63868) Complex EM visit Add On G2211 Diagnoses Paresthesias R20.2 Trigeminal neuralgia of left side of face G50.0 Cervical spondylosis M47.812
--- OUTSIDE RECORDS SUMMARY | 2025-08-12 10:31 | XMS_ITS | Clinical Summary ---
Author Organization 175 [facility] Address [address] [place] [address] Phone Care Team Providers Care Supervisor Garage Name Role Phone Dahiana Townsend MD Primary Care Provider [phone] Allergies Active Allergy Reactions Criticality Noted Date [...] Amount: 1 mg 2 tablet 5 Active Active Problems Problem Noted Date Diagnosed Date Tendonitis of left hip 10/05/2024 Constipation 06/13/2024 Trigeminal neuralgia 06/13/2024 Bilateral plantar fasciitis 03/08/2018 Lateral epicondylitis of right elbow 11/29/2017 Trigger ring finger of right hand 11/22/2017 Trigger finger, right little finger 11/11/2017 Overview (08/31/2024): Depo-medrol 20 mg injection 11/10/2017 Fibromyalgia 08/19/2017 Foot pain 08/19/2017 Encounters Date Type Department Care Team Description 08/10/2025 10:30 AM EDT - 08/10/2025 11:59 PM EDT Hospital Encounter 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) 07/24/2025 Telephone [facility] [address] [phone] Bon Trujillo, DPM 07/23/2025 8:30 AM EDT Treatment [address] [phone] Ramila Yingca, PT 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) 07/18/2025 7:30 AM EDT Treatment [address] [address] Ramila Yingca, PT 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) 07/11/2025 7:00 AM EDT Treatment [address] [address] Gumaro Hickman, ACTIONSCRIPT DEVELOPER 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) 07/10/2025 11:00 AM EDT Office Visit [place] [address] [address] Bon Trujillo, DPFederico Ganglion cyst (Primary Dx); Equinus contracture of ankle; Plantar fasciitis; Tendonitis, Achilles, left; Ingrowing nail 07/10/2025 Telephone [facility] [address] [address] Bon Trujillo, DPM 07/09/2025 8:00 AM EDT Treatment [address] [address] Ramila Yingca, PT 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) 07/07/2025 9:45 AM EDT Office Visit [facility] - [address] [address] Roly Cantrell PA Urinary frequency (Primary Dx) 07/01/2025 5:00 PM EDT Treatment [address] [phone] Gary Tillman, ACTIONSCRIPT DEVELOPER 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 MRI [address] [place] [phone] Trigeminal neuralgia Discharge Disposition: Home or Self Care 06/24/2025 3:45 PM EDT Office Visit Orthopedic Surgery [facility] [address] [phone] Bon Trujillo, DPM Ingrowing nail (Primary Dx); Ganglion cyst; Metatarsalgia of both feet; Equinus contracture of ankle; Plantar fasciitis 06/14/2025 Telephone Internal Medicine [facility] [address] [phone] Dahiana Townsend MD 06/12/2025 1:15 PM EDT Office Visit Internal Medicine [facility] [address] [phone] Dahiana Townsend MD Osteoma of skull (Primary Dx); Decline in verbal memory 06/12/2025 Telephone Internal Medicine [facility] 175 [facility] [address] [place] [phone] Dahiana Townsend MD 06/09/2025 11:30 AM EDT - 06/09/2025 11:59 PM EDT Hospital Encounter [facility] Ultrasound [address] [place] [phone] Lump of left thigh Discharge Disposition: Home or Self Care 06/07/2025 10:00 AM EDT Office Visit Internal Medicine [facility] [address] [phone] Dennise Mckeon NP Lump of left thigh (Primary Dx); Cervical pain; Memory changes 06/06/2025 Telephone Orthopedic Surgery [facility] 250 175 [facility] [address] [place] [phone] Kathryn Sidhu 06/05/2025 3:30 PM EDT Evaluation [facility] Rehabilitation [facility] 175 [facility] [address] [place] [phone] Marion Ying PT 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 [address] [facility] [place] [phone] Brandon Russo MD Encounter for gynecological examination (general) (routine) without abnormal findings 05/22/2025 Telephone Internal Medicine [facility] 175 [facility] [address] [place] [phone] Dahiana Townsend MD 05/17/2025 Telephone Internal Medicine [facility] 175 [facility] [address] [place] [address] Dahiana Townsend MD 05/14/2025 8:00 AM EDT - 05/14/2025 11:59 PM EDT Hospital Encounter [facility] Ultrasound [address] [place] [address] Discharge Disposition: Home or Self Care from Last 3 Months Immunizations Name Administration [...] PROCEDURE: HISTORICAL TONSILLECTOMY OTHER SURGICAL HISTORY PROCEDURE: IA MYOMECTOMY 1-4 MYOMAS 250 GM/< VAGINAL APPR APPENDECTOMY PROCEDURE: IA APPENDECTOMY COLONOSCOPY PROCEDURE: HISTORICAL COLONOSCOPY Medical History [...] your loved ones. For example, early childhood education instructor or elderly care for an older adult? [...] Info) Description 08/12/2025 12:00 PM EDT Treatment [address] [phone] Marion Ying, PT 08/13/2025 9:00 AM EDT Consult General Surgery [facility] 175 [facility] [address] [place] [phone] Carolina Salguero MD [address] [place] [phone] 08/14/2025 2:30 PM EDT Treatment [address] [phone] Marion Ying, PT 08/16/2025 1:00 PM EDT Treatment [address] [phone] Marion Ying, PT 08/20/2025 7:30 AM EDT Treatment [facility] [place] 175 [facility] [address] [place] [phone] Marion Ying, PT 08/22/2025 8:30 AM EDT Office Visit Orthopedic Surgery - [place] 250 175 [facility] [address] [place] [phone] Bon Trujillo, DPFederico 175 [facility] [address] [place] [phone] 10/14/2025 8:15 AM EST Office Visit Internal Medicine - [place] 175 [facility] [address] [place] [phone] Dahiana Townsend MD 175 [facility] [address] [place] [phone] Health Maintenance Due Date Last Done Comments Hepatitis B Vaccines (1 of 3 - 19+ 3-dose series) 1985 Pneumococcal Vaccine: 50+ Years (1 of 1 - PCV) 2016 Zoster Vaccines (1 of 2) 2016 HIV Screening 10/30/2022 Hepatitis C Screening 10/30/2022 Depression Screening 11/21/2024 10/07/2024 Social Influencers of Health Screening 10/07/2025 [...] on patient's age to complete this topic Influenza Vaccine Completed 07/25/2025, , 11/24/2023, Additional history exists HIB Vaccines Aged Out [...] Procedure Name Priority Date/Time Associated Diagnosis Comments MR ANKLE WO AND W CONTRAST LEFT Routine 08/10/2025 12:06 PM EDT Ganglion cyst Plantar fasciitis Tendonitis, Achilles, left URINALYSIS MICROSCOPIC ONLY Routine 07/07/2025 4:10 PM [...] Routine 05/14/2025 8:41 AM EDT Head lump MG MAMMO DIGITAL SCREENING W GARETH BILAT Routine 12/25/2024 7:36 AM EST Encounter for screening mammogram for breast cancer LIPID PANEL WITH REFLEX TO DIRECT LDL Routine 10/05/2024 8:16 AM EST Impaired fasting glucose Hypercholesterolemia HM COLONOSCOPY Routine 09/30/2021 HM HPV Routine 09/17/2021 from Last 3 Months or Most Recently Relevant to Health Maintenance Results * MR Ankle wo and w [...] Signed Date: 08/12/2025 04:35 ET Workstation ID: [id number] Transcribed By: Self Edit Transcribed Date: 08/12/2025 [...] Signed Date: 08/12/2025 04:35 ET Workstation ID: [id number] Transcribed By: Self Edit Transcribed Date: 08/12/2025 04:28 ET Bon Trujillo DPM IMG MRI PROCEDURES Final Result * Urinalysis microscopic only (07/07/2025 4:10 PM EDT) RBC, Urine 1.1 0 - 4 /HPF LAB URINALYSIS - AUTOMATED METHOD [facility] WBC, Urine 0.8 0 - 4 /HPF LAB URINALYSIS - AUTOMATED METHOD 07/07/2025 7:26 PM [facility] Squamous Epithelial, Urine 8 0 - 60 /LPF LAB URINALYSIS - AUTOMATED METHOD 07/07/2025 7:26 PM [facility] Bacteria, Urine Negative Negative /HPF LAB URINALYSIS - AUTOMATED METHOD 07/07/2025 7:26 PM [facility] Hyaline Casts, Urine 0.4 0 - 3 /LPF LAB URINALYSIS - AUTOMATED METHOD 07/07/2025 7:26 PM [facility] Urine Urine specimen obtained by clean catch procedure / Unknown Non-blood Collection / Unknown 07/07/2025 4:10 PM EDT 07/07/2025 4:10 PM EDT Roly MORENO LAB URINE ORDERABLES Final Result [facility] [address] [place] [address], [place] [phone] * Vaginitis pathogens molecular study (07/07/2025 4:10 PM EDT) Trichomonas vaginalis Negative Negative 07/08/2025 12:00 PM EDT [facility] Gardnerella vaginalis Negative Negative 07/08/2025 12:00 PM EDT [facility] Hilary Species Negative Negative 12:00 PM EDT [facility] Swab Vaginal structure / Unknown Non-blood Collection / Unknown 07/07/2025 4:10 PM EDT 07/07/2025 4:10 PM EDT Roly MORENO LAB MICROBIOLOGY - GENERAL ORDERABLES Final Result Performing Organization Address City/[facility]/ZIP Co de Phone Number [facility] [address] [place] [address], [place] [phone] * Culture urine (07/07/2025 4:10 PM EDT) Culture, Urine No growth 07/08/2025 12:32 PM EDT [facility] Urine Urine specimen obtained by clean catch procedure / Unknown Non-blood Collection / Unknown 07/07/2025 4:10 PM EDT 07/07/2025 4:10 PM EDT us Roly MORENO LAB MICROBIOLOGY - GENERAL ORDERABLES Final Result [facility] [address] [place] [address], [place] [phone] * (ABNORMAL) POC Urine Non-Auto W/O Micro (07/07/2025 10:53 AM EDT) GLUCOSE POC Negative Negative, Trace mg/dL Leukocytes UA POC 1+(A) Negative mg/dL Nitrite UA POC Negative Urobilinogen UA POC 0.2 E.U./dL mg/dL Protein UA POC Positive Positive, Negative PH UA POC 6.0 BRODERICK/HM UA POC Negative Negative Specific [place] UA POC 1.010 Ketones UA POC Negative [...] Signed Date: 06/28/2025 12:16 ET Workstation ID: [id number] Transcribed By: Self Edit Transcribed Date: 06/28/2025 [...] Signed Date: 06/28/2025 12:16 ET Workstation ID: [id number] Transcribed By: Self Edit Transcribed Date: 06/28/2025 12:12 ET us Lauren Ravi MD IMG MRI PROCEDURES Final Resul t * US [...] Signed Date: 06/09/2025 13:28 ET Workstation ID: [id number] Transcribed By: Self Edit Transcribed Date: 06/09/2025 [...] Signed Date: 06/09/2025 13:28 ET Workstation ID: [id number] Transcribed By: Self Edit Transcribed Date: 06/09/2025 13:24 ET us Dennise Mckeon NP IMSidney US PROCEDURES Final Result * Pap smear (05/30/2025 12:00 AM EDT) Interpretation Negative for intraepithelial lesion or malignancy 06/07/2025 3:49 PM EDT [facility] General Categorization Negative 06/07/2025 3:49 PM EDT [facility] Other Findings Atrophy 06/07/2025 3:49 PM EDT [facility] Specimen Adequacy Satisfactory for evaluation 06/07/2025 3:49 PM EDT [facility] Pap Methodology Liquid Based Pap Test 06/07/2025 3:49 PM EDT [facility] Disclaimer The Pap test is a screening test which carries an inherent false negative rate. These test results should be correlated with the patient's clinical findings and history. This Pap test was processed using an automated screening system. Technical cytopathology services provided by [facility], at [address] [place] [address] (CLIA # [id number]/Yesenia Lordeo MD, Child Development Director.) 06/07/2025 3:49 PM EDT [facility] Console Pap Interpretation Reported 06/07/2025 3:49 PM [facility] Brushing/Spatula Cervix uteri structure / Unknown 05/30/2025 05/31/2025 7:05 AM EDT Brandon Russo MD LAB CYTOLOGY ORDERABLES Final Result [facility] [address] [place] [address], * Urinalysis with reflex microscopic (05/23/2025 11:21 AM EDT) Specific [place] Urine 1.013 1.003 - 1.030 LAB URINALYSIS - AUTOMATED METHOD 05/23/2025 12:08 PM EDT [facility] pH, Urine 6.0 5.0 - 8.0 pH LAB URINALYSIS - AUTOMATED METHOD 05/23/2025 12:[facility] Leukocytes, Urine Negative Negative LAB URINALYSIS - AUTOMATED METHOD 05/23/2025 12:08 PM EDT [facility] Nitrite, Urine Negative Negative LAB URINALYSIS - AUTOMATED METHOD 05/23/2025 12:08 PM EDT [facility] Protein, Urine Negative <=Trace mg/dL LAB URINALYSIS - AUTOMATED METHOD 05/23/2025 12:08 PM EDT [facility] Glucose, Urine Negative Negative mg/dL LAB URINALYSIS - AUTOMATED METHOD 05/23/2025 12:08 PM EDT [facility] Ketones, Urine Negative Negative mg/dL LAB URINALYSIS - AUTOMATED METHOD 05/23/2025 12:08 PM EDT [facility] Urobilinogen, Urine 0.2 0.2 - 1.0 mg/dL LAB URINALYSIS - AUTOMATED METHOD 05/23/2025 12:08 PM EDT [facility] Bilirubin, Urine Negative Negative LAB URINALYSIS - AUTOMATED METHOD 05/23/2025 12:08 PM EDT [facility] Blood, Urine Negative Negative LAB URINALYSIS - AUTOMATED METHOD 05/23/2025 12:08 PM EDT [facility] Urine Urine specimen obtained by clean catch procedure / Unknown Non-blood Collection / Unknown 05/23/2025 11:21 AM EDT 05/23/2025 11:21 AM EDT us Dennise Mckeon NP LAB URINE ORDERABLES Final Resul t [facility] [address] [place] [address], * US Head Neck Soft Tissue (05/14/2025 [...] Signed Date: 05/15/2025 12:43 ET Workstation ID: [id number] Transcribed By: Self Edit Transcribed Date: 05/15/2025 [...] Signed Date: 05/15/2025 12:43 ET Workstation ID: [id number] Transcribed By: Self Edit Transcribed Date: 05/15/2025 12:28 ET us Dennise Mckeon INSTRUMENT DESIGNER IMG US PROCEDURES Final Result * MG Mammo Digital Screening w Gareth bilat (12/25/2024 7:36 AM EST) Anatomical Region Laterality Modality Breast Bilateral Mammography 12/25/2024 11:2 2 AM EST Impressions 12/25/2024 11:24 AM EST No mammographic evidence for malignancy. BI-RADS CATEGORY: 1 - NEGATIVE RECOMMENDATION: Screening bilateral mammogram is recommended in 1 year. Mammo Location: [facility], [address] [place] [address], [id number], . -------- FINAL REPORT -------- Dictated By: Jeri Kelly Dictated Date: 12/25/2024 11:22 ET Assigned Physician: Jeri Kelly Reviewed and Electronically Signed By: Jeri Kelly Signed Date: 12/25/2024 11:24 ET Workstation ID: [id number] Transcribed By: Self Edit Transcribed Date: 12/25/2024 [...] is recommended in 1 year. Mammo Location: [facility], [address] [place] [address], [address], . -------- FINAL REPORT -------- Dictated By: Jeri Kelly Dictated Date: 12/25/2024 11:22 ET Assigned Physician: Jeri Kelly Reviewed and Electronically Signed By: Jeri Kelly Signed Date: 12/25/2024 11:24 ET Workstation ID: [id number] Transcribed By: Self Edit Transcribed Date: 12/25/2024 11:22 ET Dahiana Townsend MD IMG BI PROCEDURES Final Result * (ABNORMAL) Lipid panel with reflex to direct LDL (10/05/2024 8:16 AM EST) Cholesterol 219(H) 0 - 200 mg/dL LAB CHEMISTRY METHOD 10/05/2024 10:37 AM [facility] Triglycerides 67 0 - 150 mg/dL LAB CHEMISTRY METHOD 10/05/2024 10:37 AM [facility] HDL 74 >=40 mg/dL LAB CHEMISTRY METHOD 10/05/2024 10:37 AM [facility] LDL Calculated 132(H) 0 - 100 mg/dL LAB CHEMISTRY METHOD 10/05/2024 10:37 AM [facility] VLDL Cholesterol Sourav 13.4 mg/dL LAB CHEMISTRY METHOD 10/05/2024 10:37 AM [facility] Non HDL Chol. (LDL+VLDL) 145(H) <145 mg/dL LAB CHEMISTRY METHOD 10/05/2024 10:37 AM [facility] Chol/HDL Ratio 3.0 0.0 - 4.4 LAB CHEMISTRY METHOD 10/05/2024 10:37 AM [facility] Blood Venous blood specimen / Unknown Venipuncture / Unknown 10/05/2024 8:16 AM EST 10/05/2024 8:16 AM EST us Gina MORENO LAB BLOOD ORDERABLES Fin al Result [facility] [address] [place] [address], * Colonoscopy (09/30/2021) Pathologist [facility] Colonoscopy no interpretation , abstracted Anatomical Region Laterality Modality Other us Historical Provider HEALTH MAINTENANCE Final Result * Cervical Cancer Screening: HPV (09/17/2021) Pathologist [facility] Cervical Cancer Screening: HPV negative, abstracted Historical Provider HEALTH MAINTENANCE Final Result from Last 3 Months or Most Recently Relevant to Health Maintenance Insurance [facility] [employer] Care Teams Supervisor Garage Relationship Specialty Start Date End Date Dahiana Townsend MD 175 [facility] [address] [place] [phone] PCP - General Internal Medicine 06/05/21
--- OUTSIDE RECORDS SUMMARY | 2025-08-12 10:31 | XMS_ITS | Encounter Summary ---
Author Organization [facility] Address [address] [place] [address] Care Team Providers Care Assurance Analyst Name Role Phone Dahiana Townsend MD Primary Care Provider [phone] Reason for Visit * Reason Onset Date Comments MRI DENIAL 07/24/2025 Encounter Details Date Type Department Care Team ([facility] st Contact Info) Description 07/24/2025 Telephone Orthopedic Surgery - [place] [address] [address] Bon Trujillo, DPM [address] [address] Social History Tobacco Use Types Packs/Day Years [...] care for your loved ones. For example, children's author or elderly care for an older adult? [...] as of this encounter Progress Notes * Kacey Maciel - 08/08/2025 5:10 PM EDT Message sent to Mitzy to arrange XR to be done in office. * Kacey Maciel - 07/30/2025 4:[address] Trujillo- MRI is denied- no XR imaging was done. Would you like to complete a peer to peer or ask the patient to stop by for XR on Tuesday then push the auth again? THIAGO: 07/10/2025 FUV: 08/22/2025 MRI ordered by : Dr Trujillo Facility: [facility] MRI ([facility]) department obtained auth request. Determination: Denied Decision/UR Letter Scanned: Yes Clinical uploaded/faxed: Yes Reason: Criteria not met. Patient did not have an x-ray and report was not sent to [employer]. Reference/Order ID# [id number] Additional Information: XR needed PENDING * Jannette Leary - 07/29/2025 11:34 AM EDT david Blanc [facility] is calling stating that either more Clinical information can be faxed to [employer] @ or a peer to peer can be scheduled;ed please call [phone] option 1 forpatient's MRI to be reconsidered fro Approval. Thanks. * Jannette Leary - 07/29/2025 10:47 AM EDT Patient is calling following up on her previous message regarding MRI denial. [place]06 Does she need updated xray's, can a peer to peer be done. Please call her back today if possible @ .[phone]. Thanks. * Kacey Maciel - 07/24/2025 5:18 PM EDT Outreach to Janett will be made by Tuesday of this week * Jannette Zabalaart - 07/24/2025 1:39 PM EDT Patient is calling office stating that her order for an MRI has been denied per [employer]. When she spoke with them on , she states to came to our office on same day, and also yesterday, and stated that a Peer to Peer will need to be done, due to the Denial, not sure if we have received a from her Insurance, she is in a lot of pain, so she is hoping to get this expedited. If possible.Please advise. Please call her @ [phone]. Thanks. documented in this encounter Plan of Treatment Upcoming Encounters Date Type Department Care Team (Late st Contact Info) Description 08/12/2025 12:00 PM EDT Treatment [address] [phone] Marion Ying, PT 08/13/2025 9:00 AM EDT Consult General Surgery [address] [place] [phone] Carolina Salguero MD [address] [place] [phone] 08/14/2025 2:30 PM EDT Treatment [address] [phone] Marion Ying, PT 08/16/2025 1:00 PM EDT Treatment [address] [phone] Marion Ying, PT 08/20/2025 7:30 AM EDT Treatment [facility] Outpatient Rehabilitation - [place] 175 [facility] [address] [place] [phone] Marion Ying, PT 08/22/2025 8:30 AM EDT Office Visit Orthopedic Surgery - [place] 250 175 [facility] [address] [place] [phone] Bon Trujillo DPM 175 [facility] [address] [place] [phone] 10/14/2025 8:15 AM EST Office Visit Internal Medicine - [place] 175 [facility] [address] [place] [phone] Dahiana Townsend MD 175 [facility] [address] [place] [phone] documented as of this encounter Visit Diagnoses Not on filedocumented in this encounter Additional Health Concerns Assessment Noted Time PHQ-9 Depression Total Score: 4 10/07/20 24 10:52 PM EST documented as of this encounter Care Teams Assurance Analyst Relationship Specialty Start Date End Date Dahiana Townsend MD 175 [facility] [address] [place] [phone] PCP - General Internal Medicine 06/05/21 documented as of this encounter
--- OUTSIDE RECORDS SUMMARY | 2025-08-12 10:31 | XMS_ITS | Encounter Summary ---
Author Organization [facility] Address [address] [place] [address] Care Team Providers Care Fire Apparatus Sprinkler Inspector Name Role Phone Dahiana Townsend MD Primary Care Provider [phone] Encounter Details Date Type Department Care Team (Latest Contact Info) Description 05/31/2025 Lab Requisition [facility] 299 [facility] [place] [address] Brandon Russo MD [address] [address] Encounter for gynecological examination (general) [...] for your loved ones. For example, child day care teacher or elderly care for an older adult? [...] Info) Description 08/12/2025 12:00 PM EDT Treatment [address] [phone] Marion Ying, PT 08/13/2025 9:00 AM EDT Consult General Surgery [facility] 175 [facility] 110 [place] [address] Carolina Salguero MD [address] [place] [phone] 08/14/2025 2:30 PM EDT Treatment [facility] [address] [phone] Marion iYng, PT 08/16/2025 1:00 PM EDT Treatment [facility] [address] [phone] Marion Ying, PT 08/20/2025 7:30 AM EDT Treatment [facility] [address] [phone] Marion Ying, PT 08/22/2025 8:30 AM EDT Office Visit Orthopedic Surgery [facility] [address] [phone] Bon Trujillo DPM [address] [phone] 10/14/2025 8:15 AM EST Office Visit Internal Medicine [facility] 175 [facility] 200 [place] [phone] Dahiana Townsend MD [address] [phone] documented as of this encounter Procedures Procedure Name Priority Date/Time Associated Diagnosis Comments PAP SMEAR Routine 05/30/2025 12:00 AM EDT Encounter for gynecological examination (general) (routine) without abnormal findings documented in this encounter Results * Pap smear (05/30/2025 12:00 AM EDT) Interpretation Negative for intraepithelial lesion or malignancy 06/07/2025 3:49 PM EDT [facility] General Categorization Negative 06/07/2025 3:49 PM EDT [facility] Other Findings Atrophy 06/07/2025 3:49 PM EDT [facility] Specimen Adequacy Satisfactory for evaluation 06/07/2025 3:49 PM EDT [facility] Pap Methodology Liquid Based Pap Test 06/07/2025 3:49 PM EDT [facility] Disclaimer The Pap test is a screening test which carries an inherent false negative rate. These test results should be correlated with the patient's clinical findings and history. This Pap test was processed using an automated screening system. Technical cytopathology services provided by [facility], at [address] [place] [address] (CLIA # [id number]/Yesenia Loredo MD, Metal Bench Patternmaker.) 06/07/2025 3:49 PM EDT [facility] Console Pap Interpretation Reported 06/07/2025 3:49 PM [facility] Brushing/Spatula Cervix uteri structure / Unknown 05/30/2025 05/31/2025 7:05 AM EDT us Brandon Russo MD LAB CYTOLOGY ORDERABLES Final Result [facility] [address] [place] [address], documented in this encounter Visit Diagnoses Diagnosis Encounter for gynecological examination (general) (routine) without abnormal findings documented in this encounter Additional Health Concerns Assessment Noted Time PHQ-9 Depression Total Score: 4 10/07/20 24 10:52 PM EST documented as of this encounter Care Teams Fire Apparatus Sprinkler Inspector Relationship Specialty Start Date End Date Dahiana Townsend MD 175 [facility] 200 [place] [phone] PCP - General Internal Medicine 06/05/21 documented as of this encounter
--- OUTSIDE RECORDS SUMMARY | 2025-08-12 10:31 | XMS_ITS | Clinical Summary ---
Author Organization [facility] Address [address] [place] [address] Phone Care Team Providers Care Pelt Shearer Name Role Phone Dahiana Townsend MD Primary [...] 2016 ZOSTER VACCINES (1 of 2) 2016 INFLUENZA VACCINE (#1) 2025 COVID-19 VACCINE (1 - 2023-2 5 season) 2025 Adult Td,Tdap Booster 09/14/2031 09/14/2021 SMOKING STATUS [...] Member Subscriber Plan / Payer (Ef fective 2023-Present) Name:Rox Yan Relation to Subscriber:Self Name:Yan Rox Payer ID:[id number] Type:Care Team ConnectO Address: [address] [place] [address] [employer]SENSE NON NSPG PCP [employer] Member Subscriber Plan / Payer (Ef fective 2023-) Name:Rox Yan Relation to Subscriber:Self Name:Yan, Rox Payer ID:[id number] Type:Care Team ConnectO Address: [address] [place] [id number] WELLSENSE NON NSPG PCP [employer] NON NSPG PCP [facility] [employer] NON NSPG PCP S[employer] NON NSPG PCP [facility] [employer] NON NSPG PCP S[employer] NON NSPG PCP [employer] NON NSPG PCP [employer] NON NSPG PCP S[employer] NON NSPG PCP [employer] Member Subscriber Plan / Payer (Ef fective 2023-Present) Name:Cassie Yane Relation to Subscriber:Self Name:Rox Yan Payer ID:[id number] Type:Care Team ConnectO Address: [address] [address] NON NSPG PCP [facility] [employer] Care Teams Pelt Shearer Relationship Specialty Start Date End Date Dahiana Townsend MD 175 [facility] 200 [place] [address] PCP - General Internal Medicine 09/22/23 Additional Source Comments The information contained in this document represents components of the legal health record. It is not the complete legal health record.[facility]
== END 2025-08-12 09:30 | disposition home or self-care (01) ==
PROVIDERS: PCP Internal Medicine; Visit Provider Psychiatry & Neurology Neurology
DX: R20.2 Paresthesia of skin (principal); G50.0 Trigeminal neuralgia; M47.812 Spondylosis without myelopathy or radiculopathy, cervical region
CPT/HCPCS: 99214

== ENCOUNTER 2025-08-12 09:00 | Outpatient (REF) | payer OTHER, SELFPAY ==
[2025-08-12 12:58] LABS: MANUAL DIFF FLAG NO
[2025-08-12 13:14] LABS: Hematocrit 40.9 % (37.0-47.0); Hemoglobin 13.8 g/dl (12.0-16.0); Imm Gran Abs Auto 0.01 X10*3/uL (0.00-0.03); Imm Gran Pct Auto 0.2 % (0.0-0.4); Lymphocytes Absolute Auto 1.4 X10*3/uL (1.2-4.9); Mean Corpuscular HGB Conc 33.7 g/dl (31.0-35.0); Mean Corpuscular Hemoglobin 29.8 pg (27.0-33.0); Mean Corpuscular Volume 88.3 fL (80.0-98.0); NRBC Abs Auto 0.000 X10*3/uL (0.0-0.012); NRBC Pct Auto 0.0 /100WBC (0.0-0.2); Platelet Count 256 X10*3/uL (160-400); Red Blood Count 4.63 X10*6/uL (4.20-5.50); White Blood Count 4.4 X10*3/uL (4.8-10.8)
[2025-08-12 13:36] LABS: Alanine Aminotransferase 29 U/L (0-31); Albumin Level 4.7 g/dL (3.5-5.0); Alkaline Phosphatase 117 U/L (39-117); Anion Gap 9 (12-20); Aspartate Amino Transferase 23 U/L (5-31); Blood Urea Nitrogen 14 mg/dL (9-16); Calcium 9.4 mg/dL (8.4-10.2); Carbon Dioxide 30 mmol/L (22-29); Chloride 108 mmol/L (96-108); Estimated Glomerular Filt Rate > 60; Potassium 4.8 mmol/L (3.3-5.1); Sodium 142 mmol/L (135-145); Total Protein 7.1 g/dL (6.5-8.0)
== END 2025-08-12 09:01 | disposition home or self-care (01) ==
LOC: HO.HKASLDS 09:00
PROVIDERS: PCP Internal Medicine; Visit Provider Psychiatry & Neurology Neurology
DX: M47.812 Spondylosis without myelopathy or radiculopathy, cervical region (principal); G50.0 Trigeminal neuralgia; R20.2 Paresthesia of skin
CPT/HCPCS: 36415; 80053; 85025; 99212

== ENCOUNTER 2025-09-06 22:27 | Emergency (ER) | payer OTHER, SELFPAY ==
--- OUTSIDE RECORDS SUMMARY | 2022-12-11 01:00 | XMS_ITS | Encounter Summary ---
Author Organization [facility] Address [address] [address] Phone Care Team Providers Care Plier Worker Name Role Phone Unavailable Primary Care Provider Unavailabl e Encounter Details Date Type Department Care Team (Late st Contact Info) Description 12/11/2022 Hospital Encounter [facility] [address] [place] [phone] Clint Graham MD [address] [place] [phone] [email or web address] Social History Tobacco Use Types Packs/Day Years Used Date Smoking Tobacco: Never Smokeless Tobacco: Never Alcohol Use Standard Drinks/Week Comments Yes 0 (1 standard drink = 0.6 oz pur e alcohol) once a year Education Answer Date Recorded Are you interested in more education? Not on yoa e 09/27/2023 Are you concerned about learning? [...] It is not the complete legal health record.[facility]
--- OUTSIDE RECORDS SUMMARY | 2023-09-01 | XMS_ITS | Encounter Summary ---
Author Organization [facility] Address [address] [address] Phone Care Team Providers Care Hip Hop Artist Name Role Phone Dahiana Townsend MD Primary Care Provider Encounter Details Date Type Department Care Team (Late st Contact Info) Description 09/01/2023 Hospital Encounter [facility] [address] [place] [phone] Clint Graham MD [address] [place] [phone] [email or web address] [place]. [facility] Social History Tobacco Use Types [...] OUTSIDE IMAGING W/OUT IN TERPRETATION Final Result [facility] documented in this encounter Visit Diagnoses Not on filedocumented in this encounter Care Teams Hip Hop Artist Relationship Specialty Start Date End Date Dahiana Townsend MD 175 [facility] 200 [place] [phone] PCP - General 09/01/23 09/21/23 documented as of this encounter Additional Source Comments The information contained in this document represents components of the legal health record. It is not the complete legal health record.[facility]
--- OUTSIDE RECORDS SUMMARY | 2023-09-01 00:05 | XMS_ITS | Encounter Summary ---
Author Organization [facility] Address [address] [place] [phone] Phone Care Team Providers Care Brine Supervisor Name Role Phone Dahiana Townsend MD Primary Care Provider Encounter Details Date Type Department Care Team (Late st Contact Info) Description 09/01/2023 12:05 AM EDT Hospital Encounter [facility] [address] [place] [phone] Clint Graham MD [address] [place] [phone] [email or web address] Social History Tobacco Use Types Packs/Day [...] Name Priority Date/Time Associated Diagnosis Comments CT NECK OUTSIDE (NO INTERPRETATION) Routine 09/01/2023 12:05 AM EDT documented in this encounter Results * CT Neck Outside (No Interpretation) (09/01/2023 12:05 AM EDT) Narrative [facility] - 10/03/2023 1:14 PM EST This study is for PACS storage only and not for interpretation. us Clint Graham MD IMG OUTSIDE IMAGING W/OUT IN TERPRETATION Final Result [facility] documented in this encounter Visit Diagnoses Not on filedocumented in this encounter Care Teams Brine Supervisor Relationship Specialty Start Date End Date Dahiana Townsend MD 175 [facility] 200 [place] [phone] PCP - General 09/01/23 09/21/23 documented as of this encounter Additional Source Comments The information contained in this document represents components of the legal health record. It is not the complete legal health record.[facility]
--- OUTSIDE RECORDS SUMMARY | 2023-09-01 00:10 | XMS_ITS | Encounter Summary ---
Author Organization [facility] Address [address] [place] [phone] Phone Care Team Providers Care Building Performance Consultant Name Role Phone Dahiana Townsend MD Primary Care Provider [phone] Encounter Details Date Type Department Care Team (Late st Contact Info) Description 09/01/2023 12:10 AM EDT Hospital Encounter [facility] [address] [place] [phone] Clint Graham MD [address] [place] [phone] [email or web address] Social History Tobacco Use Types Packs/Day [...] CT HEAD OUTSIDE (NO INTERPRETATION) Routine 09/01/2023 12:10 AM EDT documented in this encounter Results * CT Head Outside (No Interpretation) (09/01/2023 12:10 AM EDT) Narrative [facility] INTERFAC[facility] - 10/03/2023 4:11 PM EST This study is for PACS storage only and not for interpretation. us Clint Graham MD IMG OUTSIDE IMAGING W/OUT IN TERPRETATION Final Result [facility] INTER[facility]AC[facility] documented in this encounter Visit Diagnoses Not on filedocumented in this encounter Care Teams Building Performance Consultant Relationship Specialty Start Date End Date Dahiana Townsend MD 175 [facility] 200 [place] [phone] PCP - General 09/01/23 09/21/23 documented as of this encounter Additional Source Comments The information contained in this document represents components of the legal health record. It is not the complete legal health record.[facility]
[2025-09-06 22:35] VITALS: BP 150/66; PULSE 66; RESP 20; TEMP 36.2; O2SAT 100; BMI 25.0
--- OUTSIDE RECORDS SUMMARY | 2025-09-07 02:19 | XMS_ITS | Encounter Summary ---
Author Organization [facility] Address [address] [place] [address] Care Team Providers Care Medical Biller Coder Name Role Phone Dahiana Townsend MD Primary Care Provider [phone] Encounter Details Date Type Department Care Team (Latest Contact Info) Description 05/31/2025 Lab Requisition [facility] - Main Lab 299 [facility] [place] [address] Brandon Russo MD [address] [phone] Encounter for gynecological examination (general) [...] for your loved ones. For example, child development teacher or elderly care for an older [...] Date Recorded What is your living situation? Unrecognized valu e 10/07/2024 Comments No Sex and Gender Information Value Date Recorded Sex Assigned at Female 10/07/2024 10:24 PM EST Legal Sex Female 4:58 AM EST Gender Identity Female 10/07/2024 10:24 PM EST Sexual Orientation Straight 10/07/2024 10 :24 PM EST documented as of this encounter Plan of Treatment Upcoming Encounters Date Type Department Care Team (Late st Contact Info) Description 09/09/2025 3:00 PM EDT Treatment [address] [address] Hilton Fu, CERTIFIED PROFESSIONAL MIDWIFE 09/19/2025 3:00 PM EDT Treatment [facility] [address] [phone] Marion Ying, PT 09/30/2025 8:30 AM EST Treatment [facility] [address] [phone] Hilton Fu, CERTIFIED PROFESSIONAL MIDWIFE 10/14/2025 8:15 AM EST Office Visit Internal Medicine [facility] [address] [phone] Dahiana Townsend MD [address] [phone] 10/15/2025 2:15 PM EST Procedure visit General Surgery [address] [phone] Carolina Salguero MD [address] [place] [phone] 12/05/2025 10:00 AM EST Consult Internal Medicine [address] [phone] Dahiana Townsend MD [address] [phone] 12/16/2025 8:00 AM EST Consult [facility] [place] [address] [phone] Bon Trujillo DPM [address] [phone] 12/20/2025 9:15 AM EST Hospital Encounter [facility] Main [place] [address] [place] [phone] Bon Trujillo DPM [address] [phone] 12/20/2025 9:15 AM EST - 12/20/2025 10:45 AM EST Surgery [facility] Main [place] [address] [place] [phone] Bon Trujillo, DPFederico [address] [phone] EXCISION CYST GANGLION [[id number] (CPT )] 01/02/2026 1:00 PM EST Office Visit Orthopedic Surgery [facility] [address] [phone] Bon Trujillo DPM [address] [phone] Scheduled Procedures Name Priority Associated Diagnoses Date/Ti me EXCISION CYST GANGLION Ganglion cyst 12/20/2025 9:15 AM EST documented as of this encounter Procedures Procedure [...] General Categorization Negative 06/07/2025 3:49 PM EDT [facility] Other Findings Atrophy 06/07/2025 [...] screening system. Technical cytopathology services provided by [facility], at [address] [place] [address] (CLIA # [id number]/Yesenia Loredo MD, Button Sewer Hand.) 06/07/2025 3:49 PM EDT [facility] Console Pap Interpretation Reported 06/07/2025 3:49 PM EDT [facility] Brushing/Spatula Cervix uteri structure / Unknown 05/30/2025 05/31/2025 7:05 AM EDT us Brandon Russo MD LAB CYTOLOGY ORDERABLES Final Result [facility] [address] [place] [address], documented in this encounter Visit Diagnoses Diagnosis Encounter for gynecological examination (general) (routine) without abnormal findings Ganglion cyst Unspecified ganglion documented in this encounter Additional Health Concerns Assessment Noted Time PHQ-9 Depression Total Score: 4 10/07/20 24 10:52 PM EST documented as of this encounter Care Teams Medical Biller Coder Relationship Specialty Start Date End Date Dahiana Townsend MD [address] [phone] PCP - General Internal Medicine 06/05/21 documented as of this encounter
--- OUTSIDE RECORDS SUMMARY | 2025-09-07 02:19 | XMS_ITS | Clinical Summary ---
Author Organization [facility] Address [address] [place] [address] Phone Care Team Providers Care Letter Of Credit Clerk Name Role Phone Dahiana Townsend MD Primary [...] 2016 INFLUENZA VACCINE (#1) 2025 COVID-19 VACCINE ( - 2024-2 6 season) 2025 Adult Td,Tdap Booster 09/14/2031 09/14/2021 RSV VACCINE (1 - 1-dose 75+ series) 2041 SMOKING STATUS SCREENING (On ce After 26 [...] WELLSENSE NON NSPG PCP [facility] NON NSPG PCP [employer] NON NSPG PCP S[employer] NON NSPG PCP [employer] NON NSPG PCP S[employer] WELLS[employer] NON NSPG PCP [employer] WELLSENSE NON NSPG PCP [employer] NON NSPG PCP S[employer] NON NSPG PCP [facility] [employer] Care Teams Letter Of Credit Clerk Relationship Specialty Start Date End Date Dahiana Townsend MD [address] [phone] PCP - General Internal Medicine 09/22/23 Additional Source Comments The information contained in this document represents components of the legal health record. It is not the complete legal health record.[facility]
--- OUTSIDE RECORDS SUMMARY | 2025-09-07 02:19 | XMS_ITS | Data Portability ---
Author Organization [place] - [facility], Allergy Address [address] [facility] [address] [place] [address] Care Team Providers Care Regulatory Submissions Associate Name Role Phone MOBERRYYVROSE Primary Care Provider [phone] Assessment Encounter Date Assessment Date Assessment LastModified by Organization Details LastModified Time 2024 2024 59 year old female with [...] October as planned for the ear cleaning. [email or web address] Not available 08/07/2024 16:55:22 10/30/2024 10/30/2024 Nasal endoscopy was performed today. She has a stable small polyp in the left posterior nasal cavity. Recommend she try Flonase for her postnasal drip and nasal congestion instead. She will follow up with JOSH Babin in six months. ari Not available 10/30/2024 16:56:11 06/19/2025 06/19/2025 59-year-old female presents for routine ear cleaning and follow-up of nasal polyp. Cerumen impaction removed bilaterally. Bilateral TMs are intact with well aerated middle ear spaces. Nasal endoscopy demonstrated small stable left-sided nasal polyp. No purulence. We will continue to observe. She may use Flonase as needed. She will follow-up in 6 months for reevaluation, or sooner with concerns. [email or web address] Not available 06/19/2025 09:42:25 Plan of Treatment Reminders Order Date Submit Date Provider Last Modified By Organization Details Last Modified Time Details Appointments Establish ed 15 2025 08:00A M SHAYNE MCKEON PA-C Not available Not available Not available Lab None recorded. Referral None recorded. Procedures None recorded. Surgeries None recorded. Imaging None recorded. Medication Orders fluticaso ne propionat e 50 mcg/actua tion nasal spray,william pension 2023 024 [facility] [id number], [address] [place], [address], 10/30/2024 16:07:40 Patient TargetsNo targets recorded. Patient InstructionsNo instructions recorded. Reason for Referral None Reported. Results Created Date Observation Date Name Description Value Unit Range Abnormal Flag Note LastModifiedBy Organization Detail LastModifiedTime 07/11/2009/30/2022 imagi ng/di agnos tic resul t No observ ation record ed. [email or web address] Not Available 07:40:39 07/11/2010/01/2023 imagi ng/di agnos tic resul t No observ ation record ed. [email or web address] Not Available 07:40:41 08/07/20 audio gram No observ ation record ed. BARCODE Not Available 2023 16:24:13 Result Notes None recorded. 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 Vestibuli tis Nasal; Note: Date Diagnosed : 02/18/2015 11:59 AM (478.20) Not Available [facility] 4 02:19:15 Impacted cerumen 36711026 Active 2014 Impacted cerumen; CMS Risk: low risk CMS Treatment : new problem (to examiner) : no additiona l workup planned Not Available [facility] 4 02:18:54 Impacted cerumen of bilateral ears 36277069368 22294 Active 2015 Impacted cerumen, bilateral ; Note: Date Diagnosed : 6 5:03 PM (H61.23) Not Available [facility] 4 02:19:11 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; Location: left Note : Date Diagnosed : 02/16/2018 3:33 PM (B36.8) Not Available [facility] 4 02:18:17 Nasal congestio n 99588691 Active 2017 Nasal congestio n; Note: Date Diagnosed : 02/16/2018 3:29 PM (R09.81) Not Available [facility] 4 02:19:31 Migraine 75048202 Active 2017 Other migraine, not intractab le, without status migrainos us; Note: Date Diagnosed : 8 5:14 PM (G43.809) Not Available [facility] 4 02:18:46 Disorder of right Eustachia n tube 21460000200 23209 Active 2017 Other specified disorders of Eustachia n tube, right ear; Note: Date Diagnosed : 8 3:52 PM (H69.81) Not Available [facility] 4 02:18:32 Myoclonus 44543133 Active 2017 Myoclonus ; Note: Date Diagnosed : 8 5:15 PM (G25.3) Not Available [facility] 4 02:18:48 Abnormal findings on diagnosti c imaging of skull and head 211201216 Active 2022 Abnormal findings on diagnosti c imaging of skull and head, not elsewhere classifie d; Note: Date Diagnosed : 3 12:36 PM (R93.0) Not Available [facility] 02:19:27 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 Procedures Surgical History Date Name Laterality Status Provider Name and Address Organization Details Recorded Time 06/19/20 25 JMSNasal/Sinus Endoscopy completed ANNA KENNEY PA-C [address] [facility],[address], [address], [facility] 06/19/2025 09:41:19 06/19/20 25 Cerumen removal without microscope bilat completed ANNA KENNEY PA-C [address] [facility],[address], [address], [facility] - [facility] 06/19/2025 09:17:27 10/30/20 24 JMSNasal/Sinus Endoscopy completed Sobeida Saldana [facility] 10/30/2024 16:53:51 08/07/20 24 Tympanometry - 54417 completed LENKA HARRISON [address] [facility],[place] [address], [place], [address], [place] - [facility] 08/07/2024 15:56:25 05/01/20 24 JMSNasal/Sinus Endoscopy completed Sobeida Saldana [place] - [facility] 05/01/2024 15:58:29 Imaging Results None recorded. Procedure Notes None recorded. Medical Equipment None Reported. Allergies Allergen ID Allergen Name Allergen Category Reaction Reaction Severity Criticality Documentation Date Start Date Code Code System Note Provider Name and Address Organization Details Recorded Time 93871 Substance with sulfonami de structure and antibacte rial mechanism of action (substanc e) medicatio n other Not available Not available 04/03/2024 07102 8003 SNOMED React ion: unkno wn, unspe cifie d;; Not Available [facility] 00:50:42 Medications Name Sig Start Date Stop Date Status Note LastModified by Organization Details LastModified Time methocarb rhina 500 mg tablet 08/07 completed Medicati on ID: [id number] Du ration Value: 30 Brand Name: methocar bamol Se nd Method: E-Prescr ibed Sub s Allowed: subs OK Speci al Instruct ion: TK 1 T PO QD Medic ationGen ericName : methocar bamol Not Available Not Available Not Available prednison e 10 mg tablet 08/07 completed Not Available Not Available Not Available nabumeton e 750 mg tablet 08/07 completed Medicati on ID: [id number] D uration Value: 30 Brand Name: nabumeto ne Send Method: E-Prescr ibed Sub s Allowed: subs OK Speci al Instruct ion: TK 2 TS PO QD WF PRN Medi cationGe nericNam e: nabumeto ne Not Available Not Available Not Available tizanidin e 2 mg tablet 08/07 completed Medicati on ID: [id number] D uration Value: 30 Brand Name: tizanidi ne Send Method: E-Prescr ibed Sub s Allowed: subs OK Speci al Instruct ion: TK 1 T PO QHS PRN FOR MUSCLE SPRAIN/A ARIANNA FOR UP TO 30 DAYS Med icationG enericNa me: tizanidi ne Not Available Not Available Not Available trazodone 50 mg tablet 08/07 completed Medicati on ID: [id number] Du ration Value: 30 Brand Name: trazodon e Send Method: E-Prescr ibed Sub s Allowed: subs NU Muniz al Instruct ion: TK 1 T PO QHS Medi cationGe nericNam e: trazodon e Not Available Not Available Not Available azithromy russ 250 mg tablet 08/07 completed Not Available Not Available Not Available Lotrisone 1 %-0.05 % topical cream 10/30 completed Medicati on ID: [id number] P rescribe d By Name: YVES Miller nd Name: Lotrison e Send Method: E-Prescr ibed Sub s Allowed: subs NU Muniz al Instruct ion: apply to external ear tid X 2 weeks Me dication GenericN jelena: Lotrison e Not Available Not Available Not Available meloxicam 15 mg tablet 08/07 completed Medicati on ID: [id number] D uration Value: 30 Brand Name: meloxica m Send Method: E-Prescr ibed Sub s Allowed: subs NU Muniz al Instruct ion: TK 1 T PO D WF Medic ationGen ericName : meloxica m Not Available Not Available Not Available prednison e 20 mg tablet 08/07 completed Not Available Not Available Not Available meloxicam 7.5 mg tablet 11/04 completed Medicati on ID: [id number] Du ration Value: 15 Reason: () Brand Name: meloxica m Send Method: E-Prescr ibed Sub s Allowed: subs NU Muniz al Instruct ion: TAKE 1 TO 2 [...] completed Not Available Not Available Not Available cephalexi n 500 mg capsule TAKE 1 CAPSULE BY MOUTH THREE TIMES A DAY FOR 10 DAYS 06/16 completed Not Available Not Available Not Available lidocaine 5 % topical patch APPLY 1 PATCH TO SKIN EVERY DAY REMOVE AND DISCARD PATCH WITHIN 12 HOURS OR DIRECTED BY MD active Not Available Not Available No t Available mupirocin 2 % topical ointment 08/07 completed Medicati on ID: [id number] Pr escribed By Name: YVES Johnson nd Name: mupiroci n Send Method: E-Prescr ibed Sub s Allowed: subs OK Speci al Instruct ion: apply intranas ally tid X 1 week Med icationG enericNa me: mupiroci n Not Available Not Available Not Available gabapenti n 100 mg capsule Take 1 capsule by mouth twice a day 08/07 completed Medicati on ID: [id number] D uration Value: 30 Brand Name: gabapent in Send Method: E-Prescr ibed Sub s Allowed: subs OK Medic ationGen ericName : gabapent in Not Available Not Available Not Available methylpre dnisolone 4 mg tablets in a dose pack 08/07 completed Medicati on ID: [id number] D uration Value: 6 Brand Name: methylpr ednisolo ne Send Method: E-Prescr ibed Sub s Allowed: subs OK Speci al Instruct ion: Take 1 pack as directed Medicat ionGener icName: methylpr ednisolo ne Not Available Not Available Not Available fluticaso ne propionat e 50 mcg/actua tion nasal spray,william pension Fischer 2 spray into both nostrils once a day active Not Available Not Available No t Available naratript an 2.5 mg tablet 08/07 completed Medicati on ID: [id number] Du ration Value: 30 Brand Name: naratrip [...] topical cream 10/30 completed Medicati on ID: [id number] P rescribe d By Name: YVES Jamil nd Name: brandee morales Send Method: E-Prescr ibed Sub s Allowed: subs OK Speci al Instruct ion: Apply to ears twice a day as needed Federico qureshisrinivasjeane Gonzalez Name: brandee morales Not Available Not Available Not Available cyclobenz aprine 5 mg tablet active Not Available Not Available No t Available carbamaze pine ER 100 mg capsule,e xtended release [id number] r active Not Available Not Available Not Available carbamaze pine ER 200 mg capsule,e xtended release [id number] r active Not Available Not Available Not Available Fluvirin (PF) 45 mcg (15 mcg x3)/0.5 mL intramusc ular syringe 08/07 completed Medicati on ID: [id number] Du ration Value: 1 Brand Name: Fluvirin 5 (PF) Sen d Method: E-Prescr ibed Sub s Allowed: subs OK Speci al Instruct ion: inject 0.5 millilit er intramus cularly Medicati onGeneri cName: Fluvirin 5 (PF) Not Available Not Available Not Available Vitals Date Recorded Body height Body mass index (BMI) Body weight Provider Name and Address Organization Details Last Updated DateTime 06/19/2025 166.37 cm 23.8 kg/m2 30929.89 g Lidia Calvo [place] - [facility] 06/19/2025 09:15:31 Date Recorded Body height Body mass index (BMI) Body weight Provider Name and Address Organization Details Last Updated DateTime 2024 166.37 cm 24.6 kg/m2 07427.86 g Harshil Badillo [place] - [facility] 2024 13:56:50 Date Recorded Body height Body mass index (BMI) Body weight Provider Name and Address Organization Details Last Updated DateTime 07/10/2024 166.37 cm 24.6 kg/m2 57474.86 g Lidia Calvo [place] - [facility] 07/10/2024 11:21:05 Date Recorded Body height Body mass index (BMI) Body weight Provider Name and Address Organization Details Last Updated DateTime 08/07/2024 166.37 cm 23.8 kg/m2 52284.89 g Octavia Garcia [place] - [facility] 08/07/2024 15:42:06 Date Recorded Body height Provider Name an d Address Organization Details Last Updated DateTime 10/30/2024 166.37 cm [employer] [place] - [facility] 10/30/2024 15:21:41 Social History Question Answer Notes LastModified by Organizat ion Details LastModified Time Tobacco Smoking Status Never Smoker Lidia brown [place] - [facility] 06/19/2025 09:15:41 How Many Years Have You Consumed Alcohol? 25 [email or web address] Information not available 06/19/2025 What Type Of Shampooer Do You Use? None [email or web address] Information not available 06/19/2025 How Many Alcoholic Drinks Do You Consume Per Day On Average? 0 [email or web address] Information not available 06/19/2025 Do You Have Any Pets? No [email or web address] Information not available 06/19/2025 Are You Passively Exposed To Smoke? No [email or web address] Information not available 06/19/2025 Are There Any Smokers In Your House? No [email or web address] Information not available 06/19/2025 Sex: Unknown Functional Status Question Answer Note LastModified by Organization Details LastModified Time How many times per week do you consume alcohol? Less than 1 time per week Inform ation not available 06/19/2025 Do you use any illicit or recreational drugs? No [email or web address] Information not available 06/19/2025 Do you or have you ever used any other forms of tobacco or nicotine? No [email or web address] Information not available 06/19/2025 What is your level of alcohol consumption? Occasional [email or web address] Information not available 06/19/2025 What type of noise exposure are you exposed to? noExposureToExcessiveNoise [email or web address] Infor mation not available 06/19/2025 Mental Status None recorded. Family History Nothing Reported. Medical History Condition Response Allergies/Hayfever Y Heart Problems N Anxiety N Tonsil Infections N Emphysema N Migraines N Thyroid Problems N Depression N COPD N Developmental Delay N Glaucoma N Nasal or Sinus Problems Y Anemia N Immune System Disorder N Anesthesia Complications N Heart Attack (SD) N Other Skin Condition N Diabetes N Rhinitis Y Bleeding Disorder N Food Allergy N Hearing Loss N Arthritis Y Hyperlipidemia N Cancer N Stroke N Dementia N Nasal polyps Y Asthma N Sleep Disorder N High Cholesterol N GERD/Reflux N Liver Disease N Headaches Y Fibromyalgia N Hypertension N Speech Delay N Kidney Disease N Gynecological HistoryNo gynecological history recorded. Obstetrics History GPAL:G 0 P 0 0 0 0 Past Encounters Encounter ID Performer Location Encounter Start Date Encounter Closed Date Diagnosis/Indication Diagnosis SNOMED-CT Code Diagnosis ICD10 Code Diagnosis IMO Codes Diagnosis Note [id number] SOBEIDA SALDANA PA-C [facility] on [address] [place] [phone] 05/01/2024 15:04:34 05/07/2024 12:02:04 Polyp of nasal cavity 106632802 J33.0 Atypical facial pain 713 06386 G50.1 [id number] SOBEIDA SALDANA PA-C [facility] on [address] [place] [phone] 2024 13:52:32 2024 15:30:09 Acute serous otitis media of right ear 4495188283 028053 H65.01 Acute uppe r respiratory infection 46803433 J06.9 [id number] MARY ARAIZA PA-C [facility] [address] [address] 07/10/2024 11:15:17 07/10/2024 11:50:55 Acute serous otitis media of right ear 0860150421 635485 H65.01 [id number] SOBEIDA SALDANA PA-C [facility] on [address] [place] [address] 08/07/2024 15:31:26 08/07/2024 16:59:48 Disorder of right Eustachian tube 7887778348 807757 H69.81 Right Ear: Type A tympanogra m.Left Ear: Type A tympanogra m [id number] SOBEIDA SALDANA PA-C [facility] on [address] [place] [address] 10/30/2024 15:20:53 10/30/2024 16:10:37 Polyp of nasal cavity 105012572 J33.0 Nasal congestion 6918172 0 R09.81 [id number] ANNA KENNEY PA-C [facility] [address] [place] [address] 06/19/2025 08:59:35 06/19/2025 09:35:59 Impacted cerumen of bilateral ears 1665519321 136182 H61.23 Polyp of nasal cavity 73 5906307 J33.0 Health Concerns Section Related Observation LastModified by Organization Detai ls LastModified Time None Recorded Concern Status LastModified by Organization Details LastModified Time None Recorded Advance Directives Directive None Recorded Payers Insurance Date Sequence Insurance Name Policy Number Policy Hagen Covered Member ID Hagen Member ID Guarantor Name 08/07/2024 1 [facility] (MEDICAID HMO) [id number] Rox Yan [id number] Rox Yan 06/20/2025 1 [facility] (MEDICAID REPLACEMENT - HMO) [facility] Rox Yan [id number] Rox Yan Notes Date Note Type Note Provider Name and Address Organization Details Recorded Time 2024 text/html ROS as noted in the HPI 59 year old female with chronic facial pain likely related to [...] well, she has had some sound sensitivity. Sobeida brown [place] - [facility] 2024 14:23:51 07/10/2024 text/html ROS as noted in the HPI 59 year old female presents for re-evaluation of the right ear. Was seen 06/29 in our [place] office and diagnosed with effusion in the [...] does not improve. ELIAZAR BANKS MD [address] [facility],[address], [address], [facility] - [facility] [place] 07/10/2024 16:58:18 08/07/2024 text/html ROS as noted in the [facility] 59 year old female with a right sided middle ear effusion in the setting of a URI. She was seen in early June, and then in follow up in our [place] office on 07/10/24. At that visit the effusion was improving, continued observation was recommended. Since then she did see her PCP and was treated with prednisone and antibiotics for a sinus infection.She still feels like she has fluid in her right ear. Sinus symptoms seem better. Still reports some coughing in the morning, although better. RANDI GRAMAJO MD [address] [facility],[address], [address], [facility] 08/08/2024 07:26:09 10/30/2024 text/html ROS as noted in the [facility] 58 year old female presents today for follow up for a [...] trigeminal neuralgia. Also has a history of Rosebud's Syndrome, was seen in [place] and she is not having surgery for this. RANDI GRAMAJO MD [address] [facility] [place] [address], [place], [address], [facility] [place] 10/31/2024 08:24:08 06/19/2025 text/html ROS as noted in the [facility] 59 year old female presents for follow up of left posterior nasal polyp. She has had MRI of her brain and c-spine, which showed a stable small left posterior nasal polyp in the past and will be having updated MRI this year. She uses Flonase as needed with improvement. Denies nasal obstruction or congestion. She has chronic facial pain which has been worked up extensively to date. She is on Tegretol for trigeminal neuralgia. Also has a history of Rosebud's Syndrome, was seen in [place] and she is not having surgery for this. Patient also presents for an ear cleaning. No otologic concerns today. ELIAZAR BANKS MD [address] [place] [address], [place], [address], [facility] - [facility] 06/19/2025 10:24:53 OBGyn Episode No OBEpisode recorded.
--- OUTSIDE RECORDS SUMMARY | 2025-09-07 02:19 | XMS_ITS | Clinical Summary ---
Author Organization 175 [facility] Address [address] [place] [address] Phone Care Team Providers Care Infantry Unit Leader Name Role Phone Dahiana Townsend MD Primary Care Provider [phone] Allergies Active Allergy Reactions Criticality Noted Date [...] tablet 5 Active triamcinolone (KENALOG) 0.1 % cream Apply 1 Application topically 3 (three) times a day if needed for rash for up to 10 days. 30 g 5 08/22/20 amoxicillin-cla vulanate (AUGMENTIN) 875-125 mg per tablet Take 1 tablet by mouth 1 (one) time for 1 dose. Take one tab 30 minutes prior to procedure. 1 each 5 08/15/20 25 Active Problems Problem Noted Date Diagnosed Date Ganglion cyst 08/22/2025 Tendonitis of left hip 10/05/2024 Constipation 06/13/2024 Trigeminal neuralgia 06/13/2024 Bilateral plantar fasciitis 03/08/2018 Lateral epicondylitis of right elbow 11/29/2017 Trigger ring finger of right hand 11/22/2017 Trigger finger, right little finger 11/11/2017 Overview (08/31/2024): Depo-medrol 20 mg injection 11/10/2017 Fibromyalgia 08/19/2017 Foot pain 08/19/2017 Encounters Date Type Department Care Team Description 08/30/2025 Telephone Orthopedic Surgery [facility] [address] [phone] Kathryn Sidhu 08/28/2025 Telephone Orthopedic Surgery [facility] [address] [phone] Bon Trujillo DPM 08/22/2025 8:30 AM EDT Office Visit Orthopedic Surgery [facility] [address] [phone] Trujillo, Christopher M, DPM Ganglion cyst (Primary Dx); Plantar fasciitis 08/20/2025 7:30 AM EDT Treatment [address] [phone] Ramila Yingca, PT 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) 08/16/2025 1:00 PM EDT Treatment [address] [phone] Ramila Yingca, PT 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) 08/14/2025 2:30 PM EDT Treatment [address] [phone] Ramila Yingca, PT 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) 08/13/2025 9:00 AM EDT Consult General Surgery [address] [phone] Carolina Salguero MD Soft tissue mass (Primary Dx); Lump of left thigh; Traumatic hematoma of left lower leg, initial encounter 08/12/2025 12:00 PM EDT Treatment [address] [phone] Marion Ying, PT 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) 08/12/2025 10:45 AM EDT Office Visit Walk[facility]In [facility] - [address] [phone] Roly Cantrell PA Allergic contact dermatitis due to other agents (Primary Dx) 08/10/2025 10:30 AM EDT - 08/10/2025 11:59 PM EDT Hospital Encounter [facility] MRI [address] [place] [phone] Ganglion cyst; Plantar fasciitis; Tendonitis, Achilles, left Discharge Disposition: Home or Self Care 08/08/2025 8:30 AM EDT Treatment [address] [phone] Gumaro Hickman, FURNITURE REMOVALIST'S ASSISTANT 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) 07/31/2025 10:30 AM EDT Treatment [address] [phone] Hilton Fu, FURNITURE REMOVALIST'S ASSISTANT 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) 07/25/2025 8:00 AM EDT Treatment [address] [phone] Marion Ying, PT 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) 07/24/2025 [place] [facility] [address] [phone] Bon Trujillo, DPM 07/23/2025 8:30 AM EDT Treatment [address] [phone] Marion Ying, PT 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) 07/18/2025 7:30 AM EDT Treatment [address] [phone] Marion Ying, PT 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) 07/11/2025 7:00 AM EDT Treatment [address] [phone] Gumaro Hickman, FURNITURE REMOVALIST'S ASSISTANT 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) 07/10/2025 11:00 AM EDT Office Visit Orthopedic [facility] [address] [phone] Bon Trujillo, JALYN Ganglion cyst (Primary Dx); Equinus contracture of ankle; Plantar fasciitis; Tendonitis, Achilles, left; Ingrowing nail 07/10/2025 Telephone Orthopedic Surgery [facility] [address] [phone] Bon Trujillo DPM 07/09/2025 8:00 AM EDT Treatment [address] [phone] Marion Ying, PT 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) 07/07/2025 9:45 AM EDT Office Visit [facility]In [facility] - [address] [phone] Roly Cantrell PA Urinary frequency (Primary Dx) 07/01/2025 5:00 PM EDT Treatment [address] [phone] Gary Tillman, FURNITURE REMOVALIST'S ASSISTANT 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) 06/28/2025 8:00 AM EDT Treatment [address] [phone] Marion Ying, PT 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) 06/26/2025 5:30 PM EDT Treatment [address] [phone] Marion Ying, PT 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) 06/26/2025 3:22 PM EDT - 06/26/2025 11:59 PM EDT Hospital [facility] MRI [address] [place] [phone] Trigeminal neuralgia Discharge Disposition: Home or Self Care 06/24/2025 3:45 PM EDT Office Visit Orthopedic Surgery [facility] 250 175 [facility] [address] [place] [phone] Bon Trujillo, DPM Ingrowing nail (Primary Dx); Ganglion cyst; Metatarsalgia of both feet; Equinus contracture of ankle; Plantar fasciitis 06/14/2025 Telephone Internal Medicine [facility] [address] [phone] Dahiana Townsend MD 06/12/2025 1:15 PM EDT Office Visit Internal Medicine [facility] [address] [phone] Dahiana Townsend MD Osteoma of skull (Primary Dx); Decline in verbal memory 06/12/2025 Telephone Internal Medicine [facility] [address] [phone] Dahiana Townsend MD 06/09/2025 11:30 AM EDT - 06/09/2025 11:59 PM EDT Hospital Encounter [facility] Ultrasound [address] [place] [phone] Lump of left thigh Discharge Disposition: Home or Self Care 06/07/2025 10:00 AM EDT Office Visit Internal Medicine [facility] [address] [phone] Dennise Mckeon NP Lump of left thigh (Primary Dx); Cervical pain; Memory changes from Last 3 Months Immunizations Immunization Administration Dates Next Due Influenza Quadravalent, MDCK , 0.5ml, preservative free (Flucelvax) 6mo and older 09/24/2022,09/14/2021,09/28/2018 Td Tetanus diptheria (Tdvax) 7yo and older 02/10 Tdap Tetanus diptheria acell ular pertussis (Boostrix; Adacel) 7yo and older 09/14/2021 Surgical History Surgery Date Site/Laterality Comments WRIST SURGERY Right PROCEDURE: HISTORICAL WRIST SURGERY; COMMENT: De quervains TONSILLECTOMY PROCEDURE: HISTORICAL TONSILLECTOMY OTHER SURGICAL HISTORY PROCEDURE: [place] MYOMECTOMY 1-4 MYOMAS 250 GM/< VAGINAL APPR APPENDECTOMY PROCEDURE: [place] APPENDECTOMY COLONOSCOPY PROCEDURE: HISTORICAL COLONOSCOPY Medical History [...] for your loved ones. For example, child therapist or elderly care for an older adult? [...] Sign Reading Time Taken Comments Blood Pressure 113/73 08/13/2025 9:05 AM EDT Pulse 58 08/13/2025 9:05 AM EDT Temperature 36.1 C (96.9 F) 08/13/2025 9:05 AM EDT Respiratory Rate 16 08/12/2025 11:0 0 AM EDT Oxygen Saturation 100% 08/12/2025 11: 00 AM EDT Inhaled Oxygen Concentration - - Weight 68.9 kg (151 lb 12.8 oz) 08/13/2025 9:05 AM EDT Height 165.1 cm (5' 5 ) 08/13/2025 9:05 AM EDT Body Mass Index 25.26 08/13/2025 9:05 AM EDT Plan of Treatment Upcoming Encounters Date Type Department Care Team (Late st Contact Info) Description 09/09/2025 3:00 PM EDT Treatment [facility] [address] [phone] Hilton Fu, FURNITURE REMOVALIST'S ASSISTANT 09/19/2025 3:00 PM EDT Treatment [address] [phone] Marion Ying, PT 09/30/2025 8:30 AM EST Treatment [address] [phone] Hilton Fu, FURNITURE REMOVALIST'S ASSISTANT 10/14/2025 8:15 AM EST Office Visit Internal Medicine [address] [phone] Dahiana Townsend MD [address] [phone] 10/15/2025 2:15 PM EST Procedure visit General Surgery [address] [place] [phone] Carolina Salguero MD [address] [place] [phone] 12/05/2025 10:00 AM EST Consult Internal Medicine - [address] [phone] Dahiana Townsend MD [address] [phone] 12/16/2025 8:00 AM EST Consult Orthopedic Surgery [facility] [address] [phone] Bon Trujillo DPM [address] [phone] 12/20/2025 9:15 AM EST Hospital Encounter [facility] OR [address] [place] [phone] Bon Trujillo DPM [address] [phone] 12/20/2025 9:15 AM EST - 12/20/2025 10:[address] [facility] OR [address] [place] [phone] Bon Trujillo DPM [address] [phone] EXCISION CYST GANGLION [40023 (CPT )] 01/02/2026 1:00 PM EST Office Visit Orthopedic Surgery [facility] [address] [phone] Bon Trujillo DPM [address] [phone] Scheduled Procedures Name Priority Associated Diagnoses Date/Ti me EXCISION CYST GANGLION Ganglion cyst 12/20/2025 9:15 AM EST Health Maintenance Due Date Last Done Comments [...] Patients (1 - 1-dose 75+ series) 2041 MMR Vaccines Aged Out 03/21/2025 No longer eligi ble based on patient's age to complete this topic Influenza Vaccine Completed 07/25/2025, , 11/24/2023, Additional history exists COVID-19 Vaccine Completed 08/14/2025, , 11/07/2023, Additional history exists HIB Vaccines Aged Out [...] 12:05 PM EDT Lump of left thigh MG MAMMO DIGITAL SCREENING W GARETH BILAT [...] Signed Date: 08/12/2025 04:35 ET Workstation ID: [id number] Transcribed By: Self Edit Transcribed Date: 08/12/2025 [...] Signed Date: 08/12/2025 04:35 ET Workstation ID: [id number] Transcribed By: Self Edit Transcribed Date: 08/12/2025 04:28 ET Bon Trujillo DPM IMG MRI PROCEDURES Final Result * Urinalysis microscopic only (07/07/2025 4:10 PM EDT) RBC, Urine 1.1 0 - 4 /HPF LAB URINALYSIS - AUTOMATED METHOD 07/07/2025 7:26 PM [facility] WBC, Urine 0.8 0 - 4 /HPF LAB URINALYSIS - AUTOMATED METHOD 07/07/2025 7:26 PM [facility] Squamous Epithelial, Urine 8 0 - 60 /LPF LAB URINALYSIS - AUTOMATED METHOD 07/07/2025 7:26 PM [facility] Bacteria, Urine Negative Negative /HPF LAB URINALYSIS - AUTOMATED METHOD 07/07/2025 7:26 PM [facility] Hyaline Casts, Urine 0.4 0 - 3 /LPF LAB URINALYSIS - AUTOMATED METHOD 07/07/2025 7:26 PM [facility] Urine Urine specimen obtained by clean catch procedure / Unknown Non-blood Collection / Unknown 07/07/2025 4:10 PM EDT 07/07/2025 4:10 PM EDT us Roly MORENO LAB URINE ORDERABLES Final Result Performing Organization Address City/[facility]/ZIP Co de Phone Number [facility] [address] [place] [address], [place] [phone] * Vaginitis pathogens molecular study (07/07/2025 4:10 PM EDT) Trichomonas vaginalis Negative Negative 07/08/2025 12:00 PM EDT [facility] Gardnerella vaginalis Negative Negative 07/08/2025 12:00 PM EDT [facility] Hilary Species Negative Negative 12:00 PM EDT [facility] Swab Vaginal structure / Unknown Non-blood Collection / Unknown 07/07/2025 4:10 PM EDT 07/07/2025 4:10 PM EDT us Roly MORENO LAB MICROBIOLOGY - GENERAL ORDERABLES Final Result Performing Organization Address [facility]/ZIP Co de Phone Number [facility] [address] [place] [address], [place] [phone] * Culture urine (07/07/2025 4:10 PM EDT) Culture, Urine No growth 07/08/2025 12:32 PM EDT [facility] Urine Urine specimen obtained by clean catch procedure / Unknown Non-blood Collection / Unknown 07/07/2025 4:10 PM EDT 07/07/2025 4:10 PM EDT us Roly MORENO LAB MICROBIOLOGY - GENERAL ORDERABLES Final Result Performing Organization Address City/[facility]/ZIP Co de Phone Number [facility] [address] [place] [address], [place] [phone] * (ABNORMAL) POC Urine Non-Auto W/O Micro (07/07/2025 10:53 AM EDT) GLUCOSE POC Negative Negative, Trace mg/dL Leukocytes UA POC 1+(A) Negative mg/dL Nitrite UA POC Negative Urobilinogen UA POC 0.2 E.U./dL mg/dL Protein UA POC Positive Positive, Negative PH UA POC 6.0 BRODERICK/HM UA POC Negative Negative Specific [place] UA POC 1.010 Ketones UA POC Negative [...] Signed Date: 06/28/2025 12:16 ET Workstation ID: [id number] Transcribed By: Self Edit Transcribed Date: 06/28/2025 [...] Signed Date: 06/28/2025 12:16 ET Workstation ID: [id number] Transcribed By: Self Edit Transcribed Date: 06/28/2025 [...] Signed Date: 06/09/2025 13:28 ET Workstation ID: [id number] Transcribed By: Self Edit Transcribed Date: 06/09/2025 [...] Signed Date: 06/09/2025 13:28 ET Workstation ID: [id number] Transcribed By: Self Edit Transcribed Date: 06/09/2025 13:24 ET us Dennise Mckeon NP IMG US PROCEDURES Final Result * MG Mammo Digital Screening w Gareth bilat (12/25/2024 7:36 AM EST) Anatomical Region Laterality Modality Breast Bilateral Mammography 12/25/2024 11:2 2 AM EST Impressions 12/25/2024 11:24 AM EST No mammographic evidence for malignancy. BI-RADS CATEGORY: 1 - NEGATIVE RECOMMENDATION: Screening bilateral mammogram is recommended in 1 year. Mammo Location: [facility], [address] [place] [address], [id number], . -------- FINAL REPORT -------- Dictated By: Jeri Kelly Dictated Date: 12/25/2024 11:22 ET Assigned Physician: Jeri Kelly Reviewed and Electronically Signed By: Jeri Kelly Signed Date: 12/25/2024 11:24 ET Workstation ID: [id number] Transcribed By: Self Edit Transcribed Date: 12/25/2024 [...] is recommended in 1 year. Mammo Location: [facility], [address], . -------- FINAL REPORT -------- Dictated By: Jeri Kelly Dictated Date: 12/25/2024 11:22 ET Assigned Physician: Jeri Kelly Reviewed and Electronically Signed By: Jeri Kelly Signed Date: 12/25/2024 11:24 ET Workstation ID: [id number] Transcribed By: Self Edit Transcribed Date: 12/25/2024 11:22 ET us Dahiana Townsend MD IMG BI PROCEDURES Final Result * (ABNORMAL) Lipid panel with reflex to direct LDL (10/05/2024 8:16 AM EST) Cholesterol 219(H) 0 - 200 mg/dL LAB CHEMISTRY METHOD 10/05/2024 10:37 AM EST [facility] Triglycerides 67 0 - 150 mg/dL LAB CHEMISTRY METHOD 10/05/2024 10:37 AM [facility] HDL 74 >=40 mg/dL LAB CHEMISTRY METHOD 10/05/2024 10:37 AM [facility] LDL Calculated 132(H) 0 - 100 mg/dL LAB CHEMISTRY METHOD 10/05/2024 10:37 AM [facility] VLDL Cholesterol Sourav 13.4 mg/dL LAB CHEMISTRY METHOD 10/05/2024 10:37 AM [facility] Non HDL Chol. (LDL+VLDL) 145(H) <145 mg/dL LAB CHEMISTRY METHOD 10/05/2024 10:37 AM [facility] Chol/HDL Ratio 3.0 0.0 - 4.4 LAB CHEMISTRY METHOD 10/05/2024 10:37 AM [facility] Blood Venous blood specimen / Unknown Venipuncture / Unknown 10/05/2024 8:16 AM EST 10/05/2024 8:16 AM EST us Gina MORENO LAB BLOOD ORDERABLES Fin al Result [facility] [address] [place] [address], * Colonoscopy (09/30/2021) Colonoscopy no interpretation , abstracted Anatomical Region Laterality Modality Other Historical Provider HEALTH MAINTENANCE Final Result * Cervical Cancer Screening: HPV (09/17/2021) Cervical Cancer Screening: HPV negative, abstracted Historical Provider HEALTH MAINTENANCE Final Result from Last 3 Months or Most Recently Relevant to Health Maintenance Insurance [facility] Care Teams Infantry Unit Leader Relationship Specialty Start Date End Date Dahiana Townsend MD [address] [phone] PCP - General Internal Medicine 06/05/21
--- OUTSIDE RECORDS SUMMARY | 2025-09-07 02:19 | XMS_ITS | Encounter Summary ---
Author Organization [facility] Address [address] [place] [address] Care Team Providers Care Sheather Name Role Phone Dahiana Townsend MD Primary Care Provider [phone] Encounter Details Date Type Department Care Team ([facility] st Contact Info) Description 08/28/2025 Telephone Orthopedic Surgery - [place] [address] [phone] Bon Trujillo, DPM [address] [phone] Social History Tobacco Use Types Packs/Day Years [...] your loved ones. For example, child care center assistant director or elderly care for an older [...] as of this encounter Progress Notes * Alyson Madrid - 08/28/2025 12:01 PM EDT [facility] is calling requesting a call back to schedule a surgery date with Dr. Trujillo documented in this encounter Plan of Treatment Upcoming Encounters Date Type Department Care Team (Late st Contact Info) Description 09/09/2025 3:00 PM EDT Treatment [facility] [address] [phone] Hilton Fu, SPA MANAGER/ESTHETICIAN 09/19/2025 3:00 PM EDT Treatment [facility] [address] [phone] Marion Ying, PT 09/30/2025 8:30 AM EST Treatment [facility] [address] [phone] Hilton Fu, SPA MANAGER/ESTHETICIAN 10/14/2025 8:15 AM EST Office Visit Internal Medicine [facility] [address] [phone] Dahiana Townsend MD [address] [phone] 10/15/2025 2:15 PM EST Procedure visit General Surgery [facility] 175 [facility] [address] [place] [phone] Carolina Salguero MD [address] [place] [phone] 12/05/2025 10:00 AM EST Consult Internal Medicine - [place] [address] [phone] Dahiana Townsend MD [address] [phone] 12/16/2025 8:00 AM EST Consult Orthopedic Surgery [place] [address] [phone] Bon Trujillo DPM [address] [phone] 12/20/2025 9:15 AM EST Hospital Encounter [facility] Main OR [address] [place] [phone] Bon Trujillo DPM [address] [phone] 12/20/2025 9:15 AM EST - 12/20/2025 10:45 AM EST Surgery [facility] Main OR [address] [place] [phone] Bon Trujillo DPM [address] [phone] EXCISION CYST GANGLION [12410 (CPT )] 01/02/2026 1:00 PM EST Office Visit Orthopedic Surgery - [place] [address] [phone] Bon Trujillo DPM [address] [phone] Scheduled Procedures Name Priority Associated Diagnoses Date/Ti me EXCISION CYST GANGLION Ganglion cyst 12/20/2025 9:15 AM EST documented as of this encounter Visit Diagnoses Not on filedocumented in this encounter Additional Health Concerns Assessment Noted Time PHQ-9 Depression Total Score: 4 10/07/20 24 10:52 PM EST documented as of this encounter Care Teams Sheather Relationship Specialty Start Date End Date Dahiana Townsend MD [address] [phone] PCP - General Internal Medicine 06/05/21 documented as of this encounter
[2025-09-07] MEDS: diazePAM 10 MG/2 ML CARTRIDGE 2.5 MG IVPUSH ×2 (02:22→05:18)
[2025-09-07 03:52] VITALS: BP 107/57; PULSE 57; RESP 16; TEMP 36.5; O2SAT 100
--- NOTE | 2025-09-07 04:12 | ED.HA ---
HPI - Headache General Chief Complaint: Headache Stated Complaint: headache Time Seen by Provider: 09/07/25 01:44 Source: patient Mode of arrival: ambulatory Limitations: no limitations History of Present Illness ED Provider: Dr. Katalina Paris HPI Narrative: Patient comes to the emergency room complaining of bilateral upper back ache radiating towards the bilateral aspects of the neck into the scalp bilaterally. Patient states that all this started after she got face it joint injections 5 days ago. Patient states that she was in a Trendelenburg position, supine and since then, she has been having symptoms. Patient states that she has history of trigeminal /occipital neuralgia, and therefore gets injections. Patient states that she has been taking a leave in baclofen without any relief. Denies nausea vomiting diarrhea, denies vision changes. Denies the typical trigeminal neuralgia shock like sensation. Related Data Home Medications ?Medication ?Instructions ?Recorded ?Confirmed ascorbic acid (vitamin C) 1,000 mg 500 mg PO DAILY 11/28/23 08/12/25 tablet omega 8-mhj-[id number]-fish oil 300 1 cap PO DAILY 11/28/23 08/12/25 mg-1,000 mg capsule (Fish Oil) alpha lipoic acid 200 mg capsule 300 mg PO DAILY 04/29/25 08/12/25 calcium 300 mg-D3 20 mcg-magnesium 1 tab PO DAILY 04/29/25 08/12/25 25 mg-coppr 0.5 [id number] tablet baclofen 10 mg tablet 5 - 10 mg PO BEDTIME PRN 06/16/25 08/12/25 fluticasone propionate 50 spray intranasal 08/12/25 08/12/25 mcg/actuation nasal spray,suspension lidocaine 5 % topical patch 1 patch topical DAILY 08/12/25 08/12/25 Previous Rx's ?Medication ?Instructions ?Recorded carbamazepine 100 mg 100 mg PO BID #90 caps 08/14/25 capsule,extended release [id number] (Carbatrol) Allergies Allergy/AdvReac Type Severity Reaction Status Date / Time Sulfa (Sulfonamide Allergy Severe Anaphylaxis Verified 09/06/25 22:42 Antibiotics) Review of Systems Review of Systems: Constitutional : No Weight loss, No Fever, No Chills, No Night Sweats, No Fatigue, No Malaise ENT/Mouth : No Hearing loss, No Ear Pain, No Nasal Congestion, No Sinus Pain, No Hoarseness, No sore throat, No Rhinorrhea, No Swallowing Difficulty Eyes: No Eye Pain, No Swelling, No Redness, No Foreign Body, No Discharge, No Vision Changes Cardiovascular : No Chest Pain, No SOB, No Dyspnea on Exertion, No Orthopnea, No Edema, No Palpitations Respiratory : No Cough, No Sputum, No Wheezing, No Smoke Exposure, No Dyspnea Gastrointestinal : No Nausea, No Vomiting, No Diarrhea, No Constipation, No abdominal Pain, No Hematochezia, No Melena Genitourinary : no irregular bleeding, No Dysuria, No Urinary Frequency, No Hematuria, No Urinary Incontinence, No Urgency, No Flank Pain, No Urinary Flow Changes, No Hesitancy Musculoskeletal : Complaining of upper back pain radiating towards the neck bilaterally and scalp. No joint pain, No Myalgias, No Joint Swelling Skin : No Skin Lesions, No rash Neuro : No Weakness, No Numbness, No Paresthesias, No Loss of Consciousness, No Dizziness, No Headache Psych : No Anxiety/Panic, No Depression, No SI/HI/AH/VH, No Social Issues, Heme/Lymph: No Bruising, No Bleeding,No Lymphadenopathy Endocrine : No Polyuria, No Polydipsia, No Temperature Intolerance PMFSH Past Medical History Medical History Paresthesias Trigeminal neuralgia of left side of face Trigeminal neuralgia Chronic migraine with aura Cervical spondylosis Eczema Fibromyalgia Surgical History History of nasal surgery H/O adenoidectomy History of appendectomy Family History Family History Sister Breast cancer Sister Cervical cancer Social History Social History Alcohol intake: current Alcohol intake frequency: does not drink Patient Tobacco Use Status: Never used Tobacco Smoked in Last 30 Days: No Use of substances other than those prescribed or required for medical reasons: No Advance Directives: No Advance Directives Information Provided: Yes Patient : No Current occupational status: employed 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 Oriented X3. No acute distress. Eyes: Pupils equal, round and reactive to light. ENT: Pharynx normal. Neck: Normal inspection. Neck supple. No lymph nodes noted. No crepitus CVS: Normal heart rate and rhythm. Pulses normal. Normal S1 and S2 Respiratory: No respiratory distress. Breath sounds normal. No Wheezing. No rales Abdomen: Soft and nontender. No rigidity. No distention. Skin: Skin warm and dry. Normal skin color. Normal skin turgor. Extremities: No lower extremity edema. No Lacerations. No Rash Neuro: Oriented X 3. No motor deficit. No sensory deficit. Moving all extremities. No slurred speech. CN 2 through 12 grossly intact Psych: calm, cooperative, normal affect Vital Signs: Vital Signs: Last Vital Signs Temp 98.0 F 09/07/25 06:05 Pulse 54 09/07/25 06:05 Resp 16 09/07/25 06:05 BP 100/57 L 09/07/25 06:05 Pulse Ox 97 09/07/25 06:05 O2 Del Method Room Air 09/07/25 06:05 BMI result Body Mass Index 25.0 Course Course Course Narrative: Patient complaining of a headache. Likely secondary to the position that she was in doing her procedure. Patient receiving a dose of IV diazepam and morphine. At this time, I do not believe that imaging would be contributory to the patient's treatment Medications Administered Discontinued Medications Generic Name Dose Route Start Last Admin Trade Name Amber PRN Reason Stop Dose Admin Diazepam 2.5 mg 09/07/25 01:58 09/07/25 02:22 Diazepam 10 Mg/2 Ml Cartridge IVPUSH 09/07/25 01:59 2.5 mg STAT STA Administration Diazepam 2.5 mg 09/07/25 04:19 09/07/25 05:18 Diazepam 10 Mg/2 Ml Cartridge IVPUSH 09/07/25 04:20 2.5 mg STAT STA Administration Hydromorphone HCl 0.5 mg 09/07/25 04:19 09/07/25 05:17 Hydromorphone Hcl 0.5 Mg/0.5 Ml Syringe IVPUSH 09/07/25 04:20 0.5 mg ONCE ONE Administration Protocol Morphine Sulfate 2 mg 09/07/25 01:58 09/07/25 02:22 Morphine Sulfate 4 Mg/Ml Cartridge IVPUSH 09/07/25 01:59 2 mg ONCE ONE Administration Protocol Medical Decision Making Medical Decision Making MDM Narrative: Patient is neurologically intact. Vitals stable After a dose of IV Valium and morphine 2 mg, patient states that 75% of the discomfort is gone. Patient requesting 1 more dose of IV meds. At this time, we will give 0.5 mg of Dilaudid and 2.5 mg of Valium Bacteria above-mentioned medication, patient states that the discomfort/headache nearly resolved. Overall feeling much better. Differential Diagnosis Differential Diagnoses: The differential diagnosis associated with the presentation includes (Musculoskeletal pain, trigeminal neuralgia, occipital neuralgia) Admission/Observation Consideration of admission/observation: Escalation of care including admission/observation considered (Given patient's past medical history and level of pain, observation was considered) Critical Care Time Critical Care Time Critical Care Time: Yes Total Critical Care Time: 35 Attestation: I have personally provided critical care time. Time includes review of lab data, radiology results, discussion with consultants, and monitoring for potential decompensation. Intervention performed as documented. Discharge Plan Discharge Clinical Impression: Headache Patient Disposition: Home, Self-Care Instructions: Acute Headache (ED) Additional Instructions: Please follow-up with your primary care physician tomorrow. If you have any worsening or new symptoms, please return to the emergency room or call 911 Prescriptions: No Action baclofen 10 mg tablet 5 - 10 mg PO BEDTIME PRN carbamazepine [Carbatrol] 100 mg capsule, ER multiphase 12 hr 100 mg PO BID Qty: 90 6RF ascorbic acid (vitamin C) 1,000 mg tablet 500 mg PO DAILY omega 8-vyc-tuu-fish oil [Fish Oil] 300-1,000 mg capsule 1 cap PO DAILY lidocaine 5 % adhesive patch,medicated 1 patch topical DAILY fluticasone propionate 50 mcg/actuation spray,suspension intranasal Ca carb-D3-mag [id number]-Zn 300 mg-20 mcg- 25 mg-0.5 mg tablet 1 tab PO DAILY alpha lipoic acid 200 mg capsule 300 mg PO DAILY Print Language: Turkmen
[2025-09-07 06:05] VITALS: BP 100/57; PULSE 54; RESP 16; TEMP 36.7; O2SAT 97
[2025-09-07 06:41] VITALS: BP 100/57; PULSE 54; RESP 16; TEMP 36.7; O2SAT 97
== END 2025-09-07 06:42 | disposition home or self-care (01) ==
PROVIDERS: Emergency Provider Emergency Medicine; PCP Internal Medicine
DX: R51.9 Headache, unspecified (principal); M54.2 Cervicalgia
CPT/HCPCS: 96374; 96375; 96376; 99284; J1171; J2270; J3360